=== PATIENT | female | born 1970 | race Caucasian/White ===

== ENCOUNTER → 2016-09-11 | Outpatient (CLI) | payer MEDICAID | LOC: OD 09:45 | PROVIDERS: ATTEND Family Medicine | DX: M25.562 Pain in left knee (principal) ==

== ENCOUNTER 2016-10-09 22:20 | Inpatient (IN) | payer MEDICAID ==
[2016-10-10] MEDS ORDERED: LIDOCAINE 1%/EPINEPHRINE INJ 20 ML VIAL INJ ONE (00:42)
--- NOTE | 2016-10-10 01:25 | ER Document Report ---
ED General - General Chief Complaint: Knee Pain Stated Complaint: KNEE PAIN AND SWELLING AND FEVER Notes: Patient is a 45-year-old female presents for complaint of having difficulty walking on her right leg. Patient says she first noticed some pain in her leg approximately week ago. She says this was not completely abnormal for her. She started nose some redness and felt unwell. She went to Dr. Rivera this morning. Dr. Rivera evaluated her and obtained blood work. She says he wanted hold off and buttocks until laboratory results came back. She says that the day pain is worse. She says her knee is stiff and she cannot extend it. She says she is unable to bear weight and has been using crutches and/or a walker. She spiked a fever tonight and therefore came to the ER. No new trauma or injuries. No other complaints at this time. TRAVEL OUTSIDE OF THE [place] IN LAST 30 DAYS: No - Related Data Allergies/Adverse Reactions: codeine [Codeine] Allergy (Intermediate, Verified 10/09/16 23:42) itching, dysphagia oxycodone Allergy (Verified 10/09/16 23:42) urticaria, hives prochlorperazine edisylate [From Compazine] Adverse Reaction (Intermediate, Verified 10/09/16 23:42) tardive dyskinesia Past Medical History - Social History Smoking Status: Unknown if Ever Smoked Frequency of alcohol use: None Drug Abuse: None Family History: CAD - Past Medical History Cardiac Medical History: Reports: Hx Heart Murmur - denies SBE prophylaxis Denies: Hx Atrial Fibrillation, Hx Congestive Heart Failure, Hx Heart Attack , Hx Hypercholesterolemia, Hx Hypertension Pulmonary Medical History: Reports: Hx Bronchitis Denies: Hx Asthma, Hx COPD, Hx Pneumonia, Hx Tuberculosis Neurological Medical History: Reports: Hx Migraine. Denies: Hx Seizures Renal/ Medical History: Denies: Hx End Stage Renal Disease, Hx Kidney Stones, Hx Peritoneal Dialysis Malignancy Medical History: Denies: Hx Leukemia GI Medical History: Reports: Hx Gastroesophageal Reflux Disease - meds x 6 months. Denies: Hx Hiatal Hernia, Hx Ulcer Musculoskeltal Medical History: Reports Hx Arthritis Psychiatric Medical History: Reports: Hx Bipolar Disorder, Hx Depression - meds x 21 years Denies: Hx Schizophrenia Traumatic Medical History: Reports: Hx Fractures - LT wrist, cast application only, 11 years ago Infectious Medical History: Denies: Hx HIV Past Surgical History: Reports: Hx Hysterectomy, Hx Orthopedic Surgery - Left total knee arthroplasty on 01/22/2015.. Denies: Hx Appendectomy, Hx Bowel Surgery, Hx Section, Hx Cholecystectomy, Hx Mastectomy, Hx Tonsillectomy, Hx Tubal Ligation - Immunizations Hx Diphtheria, Pertussis, Tetanus Vaccination: No Review of Systems - Review of Systems Notes: My Normal Review Basic REVIEW OF SYSTEMS: CONSTITUTIONAL : Fever. RESPIRATORY: Denies cough, cold, or chest congestion. Denies shortness of breath, difficulty breathing, or wheezing. GASTROINTESTINAL: Denies abdominal pain. Denies nausea, vomiting, or diarrhea. Denies constipation. Last BM: MUSCULOSKELETAL: Right knee pain and redness. SKIN: Denies rash or skin lesions.. NEUROLOGICAL: Denies altered mental status or loss of consciousness. Denies headache. Denies weakness or paralysis or loss of use of either side. Denies problems with gait or speech. Denies sensory or motor loss. ALL OTHER SYSTEMS REVIEWED AND NEGATIVE. Physical Exam - Notes Notes: General Appearance: Well nourished, alert, cooperative, no acute distress, moderate to severe obvious discomfort. Vitals: reviewed, See vital signs table. Head: no swelling or tenderness to the head Eyes: PERRL, EOMI, Conjuctiva clear Mouth: No decreasd moisture Lungs: No wheezing, No rales, No rhonci, No accessory muscle use, good air exchange bilaterally. Heart: Normal rate, Regular rythm, No murmur, no rub Extremities: strength 5/5 in all extremities, good pulses in all extremities, Patient is keeping the right knee in a flexed position. Any attempt to extend the knee meets significant resistance and patient has severe patel in doing so. Patient has erythema areound the surgical scar that then extends inferiorly over the right carson., no edema. Skin: warm, dry, appropriate color, no rash Neuro: speech clear, oriented x 3, normal affect, responds appropriately to questions. - Respiratory Respiratory status: No respiratory distress Chest status: Nontender Breath sounds: Normal Chest palpation: Normal Course - Re-evaluation Re-evalutation: 10/10/16 01:24 I did call and speak with Dr. Rivera, patient's orthopedic surgeon, informed the patient was here and my concerns that she could eventually have the knee infection based on the fact that the air in the surgical scar is very red and inflamed and also thing that the patient is unable to extend her knee and her knee is very stiff. Also she has fevers and the ESR and CRP that Dr. Rivera ordered earlier are positive. Dr. Rivera requests that he not start antibiotics but that I tried to obtain fluid for the need to send for analysis. I did just try to obtain fluid and was not unable to obtain any fluid. I will call Dr. Rivera back. 10/10/16 01:[address] Rivera again. I informed him I was unable to get fluid off the knee. He requests I still withhold antibiotics as he wants to evaluate the knee and potentially obtain fluid himself before starting antibiotics. He requests I admit the patient to his service and he will come in and evaluate the patient and determine exactly what antibiotics to give her after he evaluates the knee. - Transfer of Care Notes: 10/10/16 01:41 Patient will be admitted to Dr. Rivera service as he requests. I did explain the plan with the patient and she is agreeable to it. Patient be given some pain medicine the meantime. She'll be kept nothing by mouth. The patient appears to have what is possibly infected knee being that she has a locked knee that she cannot bear weight on and is very stiff with erythema around the previous surgical scar. She does have some redness that spreads inferiorly over the carson. It appears consistent with a cellulitis that has extended from the infection itself. Dictation of this chart was performed using voice recognition software; therefore, there may be some unintended grammatical errors. Discharge - Discharge Clinical Impression: Knee pain Qualifiers: Laterality: right Chronicity: acute Qualified Code(s): M25.561 - Pain in right knee Fever Qualifiers: Fever type: unspecified Qualified Code(s): R50.9 - Fever, unspecified Condition: Stable Disposition: ADMITTED INPATIENT Admitting Provider: samson Unit Admitted: Surgical Floor
[2016-10-10] MEDS ORDERED: MORPHINE SULFATE 10 MG/ML INJ IV ONE ×2 (01:38→03:46)
[2016-10-10 02:18] LABS: HEMATOCRIT 30.3 % (36.0-47.0); HEMOGLOBIN 9.7 g/dL (12.0-15.5); HGB HCT DIFFERENCE -1.2; MEAN CORPUSCULAR HEMOGLOBIN 21.9 pg (27.0-33.4); MEAN CORPUSCULAR HGB CONC 31.9 g/dL (32.0-36.0); MEAN CORPUSCULAR VOLUME 69 fl (80-97); RED BLOOD COUNT 4.41 10^6/uL (3.72-5.28); RED CELL DISTRIBUTION WIDTH 17.8 % (11.5-14.0); WHITE BLOOD COUNT 15.6 10^3/uL (4.0-10.5)
[2016-10-10 02:30] LABS: ANION GAP 14 (5-19); BLOOD UREA NITROGEN 20 mg/dL (7-20); CALCIUM 9.3 mg/dL (8.4-10.2); CARBON DIOXIDE 24 mmol/L (22-30); CHLORIDE 101 mmol/L (98-107); CREATININE RESULT 0.84 mg/dL (0.52-1.25); GLUCOSE 143 mg/dL (75-110)
[2016-10-10 02:36] LABS: BASOPHILS % (MANUAL) 0 % (0-2); EOSINOPHILS % (MANUAL) 0 % (0-6); LYMPHOCYTES % (MANUAL) 5 % (13-45); TOTAL CELLS COUNTED 100
[2016-10-10 02:37] LABS: ANISOCYTOSIS 1+; TOXIC GRANULATION 1+
[2016-10-10 02:58] LABS: C-REACTIVE PROTEIN 182.6 mg/L (<10.0)
[2016-10-10 03:03] LABS: ERYTHROCYTE SEDIMENTATION RATE 79 mm/hr (0-20)
[2016-10-10] MEDS ORDERED: ACETAMINOPHEN 325 MG TABLET PO PRN ×2 (04:36→12:48)
[2016-10-10] MEDS: MORPHINE SULFATE 10 MG/ML INJ IV PRN ×3 (06:06→21:06)
--- NOTE | 2016-10-10 06:57 | PDOC H&P ---
History of Present Illness Admission Date/PCP: 10/10/16 04:52 ERICKA WILSON MD History of Present Illness: GIA ANAYA is a 45 year old female who is status post right knee arthroplasty in November 2015. The patient did well until the last day or so. She presented to my office yesterday with complaints of knee pain and fever. My clinical suspicion for a periprosthetic infection was low but I did order labs which have come back with elevated sedimentation rate and C-reactive protein. In the interim the patient continued to have fevers and states that her knee locked up. She presented to the emergency room where workup ensued. An attempted aspiration was performed which was dry. The patient was then admitted to the orthopedic service for further evaluation. Past Medical History Cardiac Medical History: Reports: Heart Murmur - denies SBE prophylaxis Denies: Atrial Fibrillation, Congestive Heart Failure, Myocardial Infarction , Hyperlipidema, Hypertension Pulmonary Medical History: Reports: Bronchitis Denies: Asthma, Chronic Obstructive Pulmonary Disease (COPD), Pneumonia, Tuberculosis Neurological Medical History: Reports: Migraine Denies: Seizures Renal/ Medical History: Denies: End Stage Renal Disease Malignancy Medical History: Denies: Leukemia GI Medical History: Reports: Gastroesophageal Reflux Disease - meds x 6 months Denies: Hiatal Hernia Musculoskeltal Medical History: Reports: Arthritis Psychiatric Medical History: Reports: Bipolar Disorder, Depression - meds x 21 years Hematology: Reports: Anemia - yrs ago Denies: Hemophilia, Sickle Cell Disease Infectious Medical History: Denies: HIV Past Surgical History Past Surgical History: Reports: Hysterectomy, Orthopedic Surgery - Left total knee arthroplasty 01/22/2015. Right knee arthroplasty November 2015 Denies: Amputation, Appendectomy, Section, Cholecystectomy, Mastectomy, Tonsillectomy, Tubal Ligation Social History Information Source: Patient, DrRizwana Collado, [facility] Records Smoking Status: Unknown if Ever Smoked Frequency of Alcohol Use: None Hx Recreational Drug Use: No Hx Prescription Drug Abuse: No - Advance Directive Resuscitation Status: Full Code Family History Family History: CAD Parental Family History Reviewed: No Children Family History Reviewed: No Sibling(s) Family History Reviewed.: No Medication/Allergy Home Medications: Sertraline HCl 50 mg PO QHS 06/23/14 Sertraline HCl [Zoloft] 200 mg PO DAILY 01/10/15 Albuterol Sulfate [Proair HFA] 2 puff IH ASDIR PRN 11/19/15 Dexlansoprazole [Dexilant 60 mg Capsule] 1 tab PO DAILY 11/19/15 Diclofenac Potassium [Cambia] 50 mg PO ASDIR PRN 11/19/15 Divalproex Sodium [Divalproex Sodium ER] 2 tab PO QHS 11/19/15 Naratriptan HCl [Amerge] 1 tab PO ASDIR PRN 11/19/15 Quetiapine Fumarate 1 tab PO QHS 11/19/15 Verapamil HCl [Verapamil ER] 1 tab PO QHS 11/19/15 Cephalexin Monohydrate [Keflex 500 mg Capsule] 500 mg PO QID #28 capsule Cetirizine HCl [Zyrtec 10 mg Tablet] 1 tab PO DAILY #30 tablet 12/03/15 Hydrocodone/Acetaminophen [[place] 5-325 mg Tablet] 1 - 2 tab PO ASDIR #15 tablet 12/03/15 Ranitidine HCl [Zantac 150 mg Tablet] 150 mg PO BID #30 tablet 12/03/15 Allergies/Adverse Reactions: codeine [Codeine] Allergy (Intermediate, Verified 10/09/16 23:42) itching, dysphagia oxycodone Allergy (Verified 10/09/16 23:42) urticaria, hives prochlorperazine edisylate [From Compazine] Adverse Reaction (Intermediate, Verified 10/09/16 23:42) tardive dyskinesia Review of Systems All systems: as per H Physical Exam Vital Signs: Temp Pulse Resp BP Pulse Ox 37.5 C 93 17 114/46 L 100 10/10/16 04:33 10/10/16 04:33 10/10/16 04:33 10/10/16 04:33 10/10/16 04:33 Intake & Output 10/08/16 10/09/16 10/10/16 06:59 06:59 06:59 Output Total 300 Balance -300 Physical Exam: The patient's an overweight middle-aged white female lying in a hospital bed. Mild to moderate discomfort. She is diaphoretic. Head exam: PRESENT: normocephalic Eye exam: PRESENT: EOMI Respiratory exam: PRESENT: unlabored Cardiovascular exam: PRESENT: RRR Pulses: PRESENT: +1 pedal pulses bilateral Vascular exam: PRESENT: normal capillary refill GI/Abdominal exam: PRESENT: soft Rectal exam: PRESENT: deferred Extremities exam: PRESENT: other - Right lower extremity is held flexed. Passive range of motion is painful. There is some erythema over the anterior proximal aspect of the incision and extends down to the carson. Distal neurovascular examinations intact. Neurological exam: PRESENT: alert, awake, oriented to person, oriented to place , oriented to time, oriented to situation. ABSENT: motor sensory deficit Psychiatric exam: PRESENT: appropriate affect, normal mood. ABSENT: homicidal ideation, suicidal ideation Skin exam: PRESENT: dry, intact, warm. ABSENT: cyanosis, rash Results Status: Imported from PACS Assessment & Plan - Diagnosis (1) Infection of prosthetic right knee joint Is this a current diagnosis for this admission?: YesPlan: 45-year-old white female known 9 months status post right knee arthroplasty. Aspiration this morning reveals approximately 10 mL of a highly purulent fluid which is sent for culture and sensitivity as well as cell count and differential. Presents with a periprosthetic infection. There is no clear source of bacteremia. Plan will be for surgical debridement polyethylene spacer exchange and 6 weeks of IV antibiotics. - Time Time Spent: 50 to 70 Minutes Critical Time spent with patient: 15-24 minutes Anticipated discharge: Home with Homehealth Within: Other
--- NOTE | 2016-10-10 06:59 | Operative Report ---
Operative Report DATE OF SURGERY: 10/10/16 PREOPERATIVE DIAGNOSIS: Right knee periprosthetic infection OPERATION: Arthrocentesis right knee SURGEON: iMguel ANESTHESIA: Other TISSUE REMOVED OR ALTERED: 10 mL of purulent aspirate is sent for culture and sensitivity 2 and cell count and differential PROCEDURE: With the patient supine in the hospital bed. The anterior surface of the right knee is prepped and draped in a sterile fashion. An 18-gauge needles advanced through medial infrapatellar portal and used aspirate approximately 10 mL what appears be a highly purulent fluid. The needle was withdrawn. The portal closed with a sterile Band-Aid.
[2016-10-10] MEDS ORDERED: RINGERS SOLUTION,LACTATED 1,000 ML IV PRN ×2 (07:48→12:48)
[2016-10-10 07:58] LABS: FLUID TYPE SYNOVIAL
[2016-10-10 07:59] LABS: FLUID APPEARANCE TURBID
[2016-10-10 08:47] LABS: FLUID RBC SIDE 1 42; FLUID RBC SIDE 2 44
[2016-10-10 08:48] LABS: FLUID RBC DILUENT USED SALINE; FLUID RBC DILUTION FACTOR 51; TOTAL RBC SQUARES COUNTED FLD 225
--- NOTE | 2016-10-10 09:40 | EKG REPORT ---
SEVERITY:- OTHERWISE NORMAL ECG - SINUS TACHYCARDIA : Confirmed by: Lucio Escalante 10-Oct-2016 09:39:54
[2016-10-10] MEDS: VANCOMYCIN HCL 1,500 MG in DEXTROSE 5%-WATER 250 ML IV SCH (10:00)
[2016-10-10] MEDS ORDERED: BACITRACIN INJ 50,000 UNIT VIAL ONE (10:03)
[2016-10-10] MEDS ORDERED: POLYMYXIN B SULFATE INJ 500000 UNIT VIAL ONE (10:03)
[2016-10-10] MEDS ORDERED: THROMBIN (BOVINE) TOPICAL 20000 UNIT VIAL ONE (10:04)
[2016-10-10] MEDS ORDERED: THROMBIN (BOVINE) 5000 UNIT EPITAXIS KIT ONE (10:04)
[2016-10-10] MEDS ORDERED: BUPIVACAINE INJ/PF LIPOSOME/PF 266 MG/20 ML SDV ONE (10:08)
[2016-10-10] MEDS ORDERED: MIDAZOLAM 2 MG/2 ML INJ ONE (11:01)
[2016-10-10] MEDS ORDERED: FENTANYL CITRATE INJ/PF 250 MCG/5 ML AMPULE ONE (11:01)
[2016-10-10] MEDS ORDERED: ACETAMINOPHEN 100 ML IV ONE (11:02)
[2016-10-10] MEDS ORDERED: PROPOFOL INJ 200 MG/20 ML VIAL IV ONE (11:02)
[2016-10-10] MEDS ORDERED: MORPHINE SULFATE 10 MG/ML INJ ONE (11:02)
[2016-10-10] MEDS ORDERED: FENTANYL CITRATE INJ/PF 100 MCG/2 ML AMPUL IV PRN ×3 (11:18)
[2016-10-10] MEDS ORDERED: DIPHENHYDRAMINE HCL 50 MG/ML VIAL IV PRN ×2 (11:18→12:48)
[2016-10-10] MEDS ORDERED: PROMETHAZINE HCL INJ 25 MG/1 ML VIAL IV PRN ×2 (11:18)
[2016-10-10] MEDS ORDERED: OXYCODONE-ACETAMINOPHEN 5-325 MG TABLET PO PRN ×2 (11:18)
[2016-10-10] MEDS ORDERED: MEPERIDINE HCL/PF INJ 25 MG/1 ML DISP.SYRIN IV PRN (11:18)
[2016-10-10] MEDS ORDERED: MORPHINE SULFATE 10 MG/ML INJ IV PRN ×3 (11:18→12:48)
[2016-10-10] MEDS ORDERED: TRANEXAMIC ACID INJ/PF 1,000 MG/10 ML SDV IV ONE ×2 (12:31→15:00)
[2016-10-10] MEDS ORDERED: (PENDING PHARMACY ID) (Rizatriptan Benzoate [Rizatriptan] 10 MG) PO PRN (12:47)
[2016-10-10] MEDS ORDERED: MAG HYDROX/AL HYDROX/SIMETH SUSP 30 ML UDCUP PO PRN (12:48)
[2016-10-10] MEDS ORDERED: OXYCODONE HCL IR 5 MG TABLET PO PRN (12:48)
[2016-10-10] MEDS ORDERED: ZOLPIDEM TARTRATE 5 MG TABLET PO PRN (12:48)
--- NOTE | 2016-10-10 12:54 | Operative Report ---
Operative Report DATE OF SURGERY: 10/10/16 PREOPERATIVE DIAGNOSIS: Right knee periprosthetic infection OPERATION: IND right knee replacement of right tibial spacer SURGEON: Miguel ANESTHESIA: GA TISSUE REMOVED OR ALTERED: Cultures sent to microbiology ESTIMATED BLOOD LOSS: 100 PROCEDURE: With the patient supine operative table right lower extremity is prepped and draped in sterile fashion. The knee is elevated for exsanguination tourniquet inflated to 350 torr. A standard midline median parapatellar approach knee is taken in line with the previous surgical approach. Upon entering the capsule large amount of purulent material was countered, cultured, and then evacuated. The underlying tibial spacers removed. The wound is sabrina. Pulse lavage containing bacitracin 3 L. The synovium is then taken. This is debrided. The wounds again irrigated with pulse lavage for additional 3 L. At this point a 9 mm tibial spacer is impacted into a #3 Striker tray. The wound is irrigated. Tourniquet is deflated and hemostasis obtained with electrocautery. The wound is then closed in layers using interrupted PDS followed by atul. A sterile compressive dressing is applied and the patient's returned to recovery in satisfactory condition.
[2016-10-10] MEDS ORDERED: IBUPROFEN INJ 800 MG/8 ML VIAL IV ONE (13:45)
[2016-10-10] MEDS ORDERED: IBUPROFEN 800 MG in NORMAL SALINE 250 ML IV ONE (14:30)
[2016-10-10] MEDS: RIFAMPIN 300 MG CAPSULE PO SCH ×2 (15:00→17:15)
[2016-10-10] MEDS ORDERED: SUCCINYLCHOLINE CHLORIDE INJ 200 MG/10 ML VIAL ONE (15:49)
[2016-10-10] MEDS ORDERED: ONDANSETRON HCL INJ/PF 4 MG/2 ML SDV ONE (15:49)
[2016-10-10] MEDS ORDERED: LIDOCAINE 2% INJ-PF (20 MG/ML) 10 ML AMPUL ONE (15:49)
[2016-10-10] MEDS ORDERED: GLYCOPYRROLATE INJ 0.4 MG/2 ML VIAL ONE (15:49)
[2016-10-10] MEDS ORDERED: ROCURONIUM BROMIDE INJ 50 MG/5 ML VIAL IV ONE (15:49)
[2016-10-10] MEDS ORDERED: NEOSTIGMINE METHYLSULFATE 10 MG/10 ML VIAL ONE (15:49)
[2016-10-10] MEDS ORDERED: METOCLOPRAMIDE HCL INJ/PF 10 MG/2 ML SDV ONE (15:49)
[2016-10-10] MEDS ORDERED: CEFEPIME 2 GM/D5W RTU 50 ML IV SCH (16:15)
--- NOTE | 2016-10-10 16:27 | PDOC CONSULTATION ---
Consultation Consult Date: 10/10/16 Attending physician:: SORAYA DOUGLASS Consult reason:: rt knee periprosthetic infection History of Present Illness Admission Date/PCP: 10/10/16 12:48 ERICKA WILSON MD Patient complains of: pain right knee S/P surgery History of Present Illness: Patient is a 45 year old who was admitted by Dr. Douglass for right knee periprosthetic infection In November 2015 patient had right knee arthroplasty without any complications In August 2016 patient fell, injuring her left knee She does not recall having had any injury to the right knee no superficial lacerations or abrasions A week prior to this admission patient started having pain in the right knee with fever chills; Patient was unable to bear weight and ambulate. Patient was evaluated by Dr. Douglass who suspected a periprosthetic infection. She was scheduled for surgical debridement and polyethylene spacer exchange . Past Medical History Cardiac Medical History: Reports: Heart Murmur - denies SBE prophylaxis Denies: Atrial Fibrillation, Congestive Heart Failure, Myocardial Infarction , Hyperlipidema, Hypertension Pulmonary Medical History: Reports: Bronchitis Denies: Asthma, Chronic Obstructive Pulmonary Disease (COPD), Pneumonia, Tuberculosis Neurological Medical History: Reports: Migraine Denies: Seizures Renal/ Medical History: Denies: End Stage Renal Disease Malignancy Medical History: Denies: Leukemia GI Medical History: Reports: Gastroesophageal Reflux Disease - meds x 6 months Denies: Hiatal Hernia Musculoskeltal Medical History: Reports: Arthritis Psychiatric Medical History: Reports: Bipolar Disorder, Depression - meds x 21 years Hematology: Reports: Anemia - yrs ago Denies: Hemophilia, Sickle Cell Disease Infectious Medical History: Denies: HIV Past Surgical History Past Surgical History: Reports: Hysterectomy, Orthopedic Surgery - Left total knee arthroplasty 01/22/2015. Right knee arthroplasty November 2015 Denies: Amputation, Appendectomy, Section, Cholecystectomy, Mastectomy, Tonsillectomy, Tubal Ligation Social History Information Source: Patient Lives with: Family Smoking Status: Never Smoker Frequency of Alcohol Use: None Hx Recreational Drug Use: No Hx Prescription Drug Abuse: No - Advance Directive Resuscitation Status: Full Code Surrogate healthcare decision maker:: friend Adelaide Loaiza Family History Family History: Hypertension, Other - Dementia Parental Family History Reviewed: Yes Children Family History Reviewed: Yes Sibling(s) Family History Reviewed.: Yes Medication/Allergy Home Medications: Dexlansoprazole [Dexilant 60 mg Capsule] 60 mg PO DAILY 11/19/15 Ranitidine HCl [Zantac 150 mg Tablet] 150 mg PO BID #30 tablet 12/03/15 Quetiapine Fumarate [Seroquel 100 mg Tablet] 100 mg PO QHS 10/10/16 Rizatriptan Benzoate [Rizatriptan] 10 mg PO Q2HP PRN MDD 20 MG 10/10/16 Sertraline HCl [Zoloft 50 mg Tablet] 50 mg PO QHS 10/10/16 Sertraline HCl [Zoloft] 200 mg PO DAILY 10/10/16 Verapamil HCl [Verapamil ER] 240 mg PO BID 10/10/16 Allergies/Adverse Reactions: codeine [Codeine] Allergy (Intermediate, Verified 10/09/16 23:42) itching, dysphagia oxycodone Allergy (Verified 10/09/16 23:42) urticaria, hives prochlorperazine edisylate [From Compazine] Adverse Reaction (Intermediate, Verified 10/09/16 23:42) tardive dyskinesia Review of Systems Constitutional: PRESENT: chills, fever(s). ABSENT: headache(s), weight gain, weight loss Eyes: ABSENT: visual disturbances Ears: ABSENT: hearing changes Cardiovascular: ABSENT: chest pain, dyspnea on exertion, edema, orthropnea, palpitations Respiratory: ABSENT: cough, hemoptysis Gastrointestinal: ABSENT: abdominal pain, constipation, diarrhea, hematemesis, hematochezia, nausea, vomiting Genitourinary: ABSENT: dysuria, hematuria Musculoskeletal: PRESENT: other - Pain right knee Integumentary: ABSENT: rash, wounds Neurological: ABSENT: abnormal gait, abnormal speech, confusion, dizziness, focal weakness, syncope Psychiatric: ABSENT: anxiety, depression, homidical ideation, suicidal ideation Endocrine: ABSENT: cold intolerance, heat intolerance, polydipsia, polyuria Hematologic/Lymphatic: ABSENT: easy bleeding, easy bruising Physical Exam Vital Signs: Temp Pulse Resp BP Pulse Ox 99.8 F 102 H 22 H 122/54 L 95 10/10/16 14:05 10/10/16 14:05 10/10/16 14:05 10/10/16 14:05 10/10/16 14:05 Intake & Output 10/09/16 10/10/16 10/11/16 00:59 00:59 00:59 Intake Total 800 Output Total 100 Balance 700 General appearance: PRESENT: no acute distress, obese Head exam: PRESENT: atraumatic, normocephalic Eye exam: PRESENT: conjunctiva pink, EOMI, PERRLA. ABSENT: scleral icterus Ear exam: PRESENT: normal external ear exam Mouth exam: PRESENT: moist, tongue midline Neck exam: ABSENT: carotid bruit, JVD, lymphadenopathy, thyromegaly Respiratory exam: PRESENT: clear to auscultation chioma. ABSENT: rales, rhonchi, wheezes Cardiovascular exam: PRESENT: RRR. ABSENT: diastolic murmur, rubs, systolic murmur Pulses: PRESENT: normal dorsalis pedis pul Vascular exam: PRESENT: normal capillary refill GI/Abdominal exam: PRESENT: normal bowel sounds, soft. ABSENT: distended, guarding, mass, organolmegaly, rebound, tenderness Rectal exam: PRESENT: deferred Extremities exam: PRESENT: full ROM, other - Right lower extremity bandaged. ABSENT: calf tenderness, clubbing, pedal edema Neurological exam: PRESENT: alert, awake, oriented to person, oriented to place , oriented to time, oriented to situation, CN II-XII grossly intact. ABSENT: motor sensory deficit Psychiatric exam: PRESENT: appropriate affect, normal mood. ABSENT: homicidal ideation, suicidal ideation Skin exam: PRESENT: dry, intact, warm. ABSENT: cyanosis, rash Results Laboratory Results: Labs- All tests 24 hr 10/10/16 10/10/16 10/10/16 01:50 01:50 06:32 WBC 15.6 H RBC 4.41 Hgb 9.7 L Hct 30.3 L MCV 69 L MCH 21.9 L MCHC 31.9 L RDW 17.8 H Plt Count 234 Total Counted 100 Seg Neutrophils % Not Reportable Seg Neuts % (Manual) 89 H Lymphocytes % Not Reportable Lymphocytes % (Manual) 5 L Monocytes % Not Reportable Monocytes % (Manual) 6 Eosinophils % Not Reportable Eosinophils % (Manual) 0 Basophils % Not Reportable Basophils % (Manual) 0 Absolute Neutrophils Not Reportable Abs Neuts (Manual) 13.9 H Absolute Lymphocytes Not Reportable Abs Lymphs (Manual) 0.8 Absolute Monocytes Not Reportable Abs Monocytes (Manual) 0.9 Absolute Eosinophils Not Reportable Absolute Eos (Manual) 0.0 Absolute Basophils Not Reportable Abs Basophils (Manual) 0.0 Toxic Granulation 1+ Platelet Comment ADEQUATE Anisocytosis 1+ ESR 79 H Sodium 139.0 Potassium 4.0 Chloride 101 Carbon Dioxide 24 Anion Gap 14 BUN 20 Creatinine 0.84 Est GFR ( Amer) > 60 Est GFR (Non-Af Amer) > 60 Glucose 143 H Calcium 9.3 C-Reactive Protein 182.6 H Fluid Type SYNOVIAL Fluid Source KNEE Fluid Color YELLOW Fluid Appearance TURBID Fluid Viscosity MODERATELY VISCOUS Fluid WBC 960944 Fluid RBC 2436 Fluid Seg Neutrophils 95 Fluid Lymphocytes 1 Fluid Monocytes 4 10/10/16 12:13 Gram Stain - Preliminary Knee - Right 10/10/16 12:12 Gram Stain - Preliminary Knee - Right 10/10/16 06:32 Gram Stain - Preliminary Knee Fluid - Right Body Fluid Culture - Preliminary 10/10/16 06:32 Gram Stain - Preliminary Knee Fluid - Right Body Fluid Culture - Preliminary Impressions: Chest X-Ray 10/10/16 00:00 IMPRESSION: NO SIGNIFICANT RADIOGRAPHIC FINDING IN THE CHEST. Assessment & Plan - Diagnosis (2) Prosthetic joint infection Is this a current diagnosis for this admission?: YesPlan: Cultures are pending grams stable of the joint fluid shows gram-positive cocci We will continue vancomycin and will add cefepime for broader coverage until results of cultures are available (3) Sepsis Qualifiers: Sepsis type: sepsis due to unspecified organism Qualified Code(s): A41.9 - Sepsis, unspecified organism Is this a current diagnosis for this admission?: YesPlan: Patient is febrile tachycardic [place] [address] [place] will give her another bolus of fluid thousand milliliters saline We will continue ringers lactate as ordered Patient is hemodynamically stable - Time Time Spent: 50 to 70 Minutes
[2016-10-10] MEDS ORDERED: NORMAL SALINE 1000 ML 2,000 ML IV ONE (17:00)
[2016-10-10] MEDS ORDERED: NORMAL SALINE 1000 ML 1,000 ML IV ONE (17:00)
[2016-10-10] MEDS: ONDANSETRON HCL INJ/PF 4 MG/2 ML SDV IV PRN (17:08)
[2016-10-10] MEDS: FAMOTIDINE 20 MG TABLET PO SCH (17:13)
[2016-10-10] MEDS: CEFEPIME HCL 2 GM in DEXTROSE 5%-WATER 50 ML IV SCH (17:14)
[2016-10-10] MEDS: SENNOSIDES/DOCUSATE 8.6-50 MG 1 EACH TABLET PO SCH (17:19)
[2016-10-10] MEDS ORDERED: (PENDING PHARMACY ID) (Ranitidine Hcl [Zantac 150 Mg Tablet] 150 MG) PO SCH (18:00)
[2016-10-10] MEDS: IBUPROFEN 800 MG in NORMAL SALINE 250 ML IV SCH (21:54)
[2016-10-10] MEDS: QUETIAPINE FUMARATE 100 MG TABLET PO SCH (21:55)
[2016-10-10] MEDS: RIVAROXABAN 10 MG TABLET PO SCH (21:55)
[2016-10-10] MEDS: SERTRALINE HCL 50 MG TABLET PO SCH (21:55)
[2016-10-10] MEDS: VERAPAMIL HCL 240 MG TABLET.SA PO SCH (21:56)
[2016-10-10] MEDS ORDERED: OXYCODONE HCL SR 10 MG TABLET PO SCH (22:00)
[2016-10-11] MEDS ORDERED: VANCOMYCIN HCL 1,000 MG in DEXTROSE 5%-WATER 250 ML IV ONE (01:00)
[2016-10-11] MEDS: VANCOMYCIN HCL 1,500 MG in DEXTROSE 5%-WATER 250 ML IV SCH ×2 (04:52→10:09)
[2016-10-11] MEDS: MORPHINE SULFATE 10 MG/ML INJ IV PRN (05:03)
[2016-10-11] MEDS: LANSOPRAZOLE 30 MG TAB.RAP.DR PO SCH (05:17)
[2016-10-11] MEDS: IBUPROFEN 800 MG in NORMAL SALINE 250 ML IV SCH ×3 (05:17→23:42)
[2016-10-11] MEDS: CEFEPIME HCL 2 GM in DEXTROSE 5%-WATER 50 ML IV SCH (05:17)
[2016-10-11 06:04] LABS: HEMATOCRIT 23.9 % (36.0-47.0); HGB HCT DIFFERENCE -0.5; MEAN CORPUSCULAR HEMOGLOBIN 22.3 pg (27.0-33.4); MEAN CORPUSCULAR HGB CONC 32.6 g/dL (32.0-36.0); MEAN CORPUSCULAR VOLUME 69 fl (80-97); RED BLOOD COUNT 3.48 10^6/uL (3.72-5.28); RED CELL DISTRIBUTION WIDTH 18.2 % (11.5-14.0); WHITE BLOOD COUNT 8.8 10^3/uL (4.0-10.5)
[2016-10-11 06:24] LABS: ANION GAP 12 (5-19); BLOOD UREA NITROGEN 20 mg/dL (7-20); CALCIUM 8.1 mg/dL (8.4-10.2); CARBON DIOXIDE 24 mmol/L (22-30); CHLORIDE 102 mmol/L (98-107); CREATININE RESULT 0.81 mg/dL (0.52-1.25); GLUCOSE 96 mg/dL (75-110); SODIUM 137.8 mmol/L (137-145)
[2016-10-11 06:25] LABS: HEMOGLOBIN 7.8 g/dL (12.0-15.5)
[2016-10-11 06:35] LABS: POTASSIUM 3.6 mmol/L (3.6-5.0)
[2016-10-11] MEDS: SENNOSIDES/DOCUSATE 8.6-50 MG 1 EACH TABLET PO SCH ×2 (09:28→18:40)
[2016-10-11] MEDS: RIFAMPIN 300 MG CAPSULE PO SCH (09:28)
[2016-10-11] MEDS: FAMOTIDINE 20 MG TABLET PO SCH ×2 (09:28→18:40)
[2016-10-11] MEDS: SERTRALINE HCL 50 MG TABLET PO SCH ×2 (09:30→21:41)
[2016-10-11] MEDS: PRENATAL VITAMIN W-O CA NO5/FE FUMARATE/FA CAPSULE PO SCH (09:30)
[2016-10-11] MEDS: HYDROCODONE/ACETAMINOPHEN 5-325 MG TABLET PO PRN ×2 (09:32→20:11)
[2016-10-11] MEDS: VERAPAMIL HCL 240 MG TABLET.SA PO SCH (09:42)
[2016-10-11] MEDS ORDERED: (PENDING PHARMACY ID) (Sertraline Hcl [Zoloft] 200 MG) PO SCH (10:00)
[2016-10-11] MEDS ORDERED: VERAPAMIL HCL 240 MG TABLET.SA PO SCH (10:09)
[2016-10-11] MEDS ORDERED: RINGERS SOLUTION,LACTATED 1,000 ML IV PRN (10:09)
[2016-10-11] MEDS ORDERED: SUMATRIPTAN SUCCINATE 50 MG TABLET PO SCH (10:15)
[2016-10-11] MEDS ORDERED: DOCUSATE SODIUM 100 MG CAPSULE PO ONE (11:00)
[2016-10-11] MEDS ORDERED: POLYETHYLENE GLYCOL 3350 POWDER 17 GM/1 PACKET PO ONE (11:00)
[2016-10-11] MEDS: SUMATRIPTAN SUCCINATE 50 MG TABLET PO PRN ×2 (11:57→13:46)
[2016-10-11] MEDS: GABAPENTIN 300 MG CAPSULE PO SCH ×2 (13:46→21:41)
[2016-10-11] MEDS: MORPHINE SULFATE 10 MG/ML INJ IM PRN (13:52)
--- NOTE | 2016-10-11 14:01 | PDOC PROGRESS REPORT ---
Subjective Progress Note for:: 10/11/16 Subjective:: severe headache severe pains right leg "like cramps " on and off culture results : group A beta Strep Physical Exam Vital Signs: Temp Pulse Resp BP Pulse Ox 99.1 F 91 19 95/44 L 99 10/11/16 12:00 10/11/16 12:00 10/11/16 12:00 10/11/16 12:00 10/11/16 12:00 Intake & Output 10/10/16 10/11/16 10/12/16 00:59 00:59 00:59 Intake Total 1550 420 Output Total 700 Balance 850 420 General appearance: PRESENT: mild distress, obese Head exam: PRESENT: atraumatic, normocephalic Eye exam: PRESENT: conjunctiva pink, EOMI, PERRLA. ABSENT: scleral icterus Neck exam: ABSENT: carotid bruit, JVD, lymphadenopathy, thyromegaly Respiratory exam: PRESENT: clear to auscultation chioma. ABSENT: rales, rhonchi, wheezes Pulses: PRESENT: normal dorsalis pedis pul Extremities exam: PRESENT: other - right lower extremity bandaged Neurological exam: PRESENT: alert, awake, oriented to person, oriented to place , oriented to time, oriented to situation, CN II-XII grossly intact. ABSENT: motor sensory deficit Psychiatric exam: PRESENT: appropriate affect, normal mood. ABSENT: homicidal ideation, suicidal ideation Results Laboratory Results: 10/11/16 05:28 10/11/16 05:28 10/10/16 10/11/16 10/11/16 17:45 05:28 05:28 WBC 8.8 RBC 3.48 L Hgb 7.8 L Hct 23.9 L MCV 69 L MCH 22.3 L MCHC 32.6 RDW 18.2 H Plt Count 198 Sodium 137.8 Potassium 3.6 Chloride 102 Carbon Dioxide 24 Anion Gap 12 BUN 20 Creatinine 0.81 Est GFR ( Amer) > 60 Est GFR (Non-Af Amer) > 60 Glucose 96 Lactic Acid 0.9 Calcium 8.1 L Blood Type Antibody Screen 10/11/16 08:27 WBC RBC Hgb Hct MCV MCH MCHC RDW Plt Count Sodium Potassium Chloride Carbon Dioxide Anion Gap BUN Creatinine Est GFR ( Amer) Est GFR (Non-Af Amer) Glucose Lactic Acid Calcium Blood Type O POSITIVE Antibody Screen NEGATIVE Impressions: Chest X-Ray 10/10/16 00:00 IMPRESSION: NO SIGNIFICANT RADIOGRAPHIC FINDING IN THE CHEST. Assessment & Plan - Diagnosis (2) Prosthetic joint infection Is this a current diagnosis for this admission?: YesPlan: results culture : 10/10/16 12:13 Gram Stain - Preliminary Knee - Right Wound Culture - Preliminary Group A Beta Streptococcus 10/10/16 12:12 Gram Stain - Preliminary Knee - Right Wound Culture - Preliminary Group A Beta Streptococcus 10/10/16 06:32 Gram Stain - Preliminary Knee Fluid - Right Body Fluid Culture - Preliminary Group A Beta Streptococcus 10/10/16 06:32 Gram Stain - Preliminary Knee Fluid - Right Body Fluid Culture - Preliminary Group A Beta Streptococcus discussed case with Dr Erika JAEGER fellow [facility] initiate treatment with Penicillin G 24 million units Penicillin G/ 24 hours continuous for 6 weeks (3) Sepsis Qualifiers: Sepsis type: sepsis due to unspecified organism Qualified Code(s): A41.9 - Sepsis, unspecified organism Is this a current diagnosis for this admission?: YesPlan: resolving (4) Migraine headache Qualifiers: Migraine type: unspecified Status migrainosus presence: without status migrainosus Intractability: not intractable Qualified Code(s): G43.909 - Migraine, unspecified, not intractable, without status migrainosus Is this a current diagnosis for this admission?: YesPlan: imitrex po - Time Time Spent with patient: 25-34 minutes
[2016-10-11 16:34] LABS: FOLATE > 20.00 ng/mL (>2.76)
[2016-10-11] MEDS: DOCUSATE SODIUM 100 MG CAPSULE PO SCH (18:40)
[2016-10-11] MEDS: FERROUS SULFATE 325 MG TABLET PO SCH (18:40)
[2016-10-11] MEDS: RIVAROXABAN 10 MG TABLET PO SCH (21:41)
[2016-10-11] MEDS: QUETIAPINE FUMARATE 100 MG TABLET PO SCH (21:41)
[2016-10-11] MEDS ORDERED: VERAPAMIL HCL 120 MG TABLET.SA PO SCH (22:00)
[2016-10-11] MEDS: NORMAL SALINE IV SCH (23:31)
[2016-10-11] MEDS: PENICILLIN POTASSIUM IV SCH (23:31)
[2016-10-12] MEDS: MORPHINE SULFATE 10 MG/ML INJ IM PRN (00:22)
[2016-10-12 04:44] LABS: HEMATOCRIT 27.1 % (36.0-47.0); HGB HCT DIFFERENCE -0.1; MEAN CORPUSCULAR HEMOGLOBIN 23.4 pg (27.0-33.4); MEAN CORPUSCULAR VOLUME 71 fl (80-97); RED BLOOD COUNT 3.83 10^6/uL (3.72-5.28)
[2016-10-12] MEDS: IBUPROFEN 800 MG in NORMAL SALINE 250 ML IV SCH ×2 (05:21→13:55)
[2016-10-12] MEDS: LANSOPRAZOLE 30 MG TAB.RAP.DR PO SCH (05:21)
[2016-10-12] MEDS: GABAPENTIN 300 MG CAPSULE PO SCH ×3 (05:21→21:50)
[2016-10-12] MEDS: HYDROCODONE/ACETAMINOPHEN 5-325 MG TABLET PO PRN ×2 (08:03→17:39)
[2016-10-12] MEDS: SUMATRIPTAN SUCCINATE 50 MG TABLET PO PRN ×2 (08:03→11:34)
[2016-10-12] MEDS ORDERED: BISACODYL 10 MG SUPP.RECT PR PRN (09:32)
--- NOTE | 2016-10-12 09:50 | PDOC PROGRESS REPORT ---
Subjective Progress Note for:: 10/12/16 Subjective:: Patient is still complaining of headache otherwise she feels better She states her throat is still painful and she recalls having had a sore throat about a week ago with fever chills She is no chest pain no shortness of breath And she is afebrile Physical Exam Vital Signs: Temp Pulse Resp BP Pulse Ox 98.3 F 80 20 120/50 L 95 10/11/16 22:40 10/12/16 07:11 10/12/16 07:11 10/12/16 07:11 10/12/16 07:11 Intake & Output 10/11/16 10/12/16 10/13/16 00:59 00:59 00:59 Intake Total 1550 1920 400 Output Total 700 1300 Balance 850 1920 -900 Weight 127.6 kg General appearance: PRESENT: no acute distress, obese Head exam: PRESENT: atraumatic, normocephalic Eye exam: PRESENT: conjunctiva pink, EOMI, PERRLA. ABSENT: scleral icterus Ear exam: PRESENT: normal external ear exam Mouth exam: PRESENT: moist, tongue midline Throat exam: PRESENT: post pharyngeal erythema Neck exam: ABSENT: carotid bruit, JVD, lymphadenopathy, thyromegaly Respiratory exam: PRESENT: clear to auscultation chioma. ABSENT: rales, rhonchi, wheezes Cardiovascular exam: PRESENT: RRR. ABSENT: diastolic murmur, rubs, systolic murmur Pulses: PRESENT: normal dorsalis pedis pul Vascular exam: PRESENT: normal capillary refill GI/Abdominal exam: PRESENT: normal bowel sounds, soft. ABSENT: distended, guarding, mass, organolmegaly, rebound, tenderness Rectal exam: PRESENT: deferred Extremities exam: PRESENT: full ROM. ABSENT: calf tenderness, clubbing, pedal edema Musculoskeletal exam: PRESENT: other - Decreased range of motion of the right knee Neurological exam: PRESENT: alert, awake, oriented to person, oriented to place , oriented to time, oriented to situation, CN II-XII grossly intact. ABSENT: motor sensory deficit Psychiatric exam: PRESENT: appropriate affect, normal mood. ABSENT: homicidal ideation, suicidal ideation Skin exam: PRESENT: dry, intact, warm. ABSENT: cyanosis, rash Results Laboratory Results: 10/12/16 03:54 10/11/16 05:28 10/11/16 10/11/16 10/12/16 05:28 08:27 03:54 WBC 8.0 RBC 3.83 Hgb 9.0 L Hct 27.1 L MCV 71 L MCH 23.4 L MCHC 33.0 RDW 19.0 H Plt Count 191 Iron < 10.1 L TIBC 345 % Saturation UNABLE TO CALCULATE Ferritin 95.00 Vitamin B12 574.0 Folate > 20.00 Blood Type O POSITIVE Antibody Screen NEGATIVE Impressions: Chest X-Ray 10/10/16 00:00 IMPRESSION: NO SIGNIFICANT RADIOGRAPHIC FINDING IN THE CHEST. Assessment & Plan - Diagnosis (2) Prosthetic joint infection Is this a current diagnosis for this admission?: YesPlan: 10/10/16 12:13 Gram Stain - Preliminary Knee - Right Wound Culture - Preliminary Group A Beta Streptococcus 10/10/16 12:12 Gram Stain - Preliminary Knee - Right Wound Culture - Preliminary Group A Beta Streptococcus 10/10/16 06:32 Gram Stain - Final Knee Fluid - Right Body Fluid Culture - Preliminary Group A Beta Streptococcus 10/10/16 06:32 Gram Stain - Final Knee Fluid - Right Body Fluid Culture - Preliminary Group A Beta Streptococcus Patient may have had strep pharyngitis and strep bacteremia We will get a strep culture from the throat ASO titer also be drawn (3) Sepsis Qualifiers: Sepsis type: sepsis due to unspecified organism Qualified Code(s): A41.9 - Sepsis, unspecified organism Is this a current diagnosis for this admission?: Yes (4) Migraine headache Qualifiers: Migraine type: unspecified Status migrainosus presence: without status migrainosus Intractability: not intractable Qualified Code(s): G43.909 - Migraine, unspecified, not intractable, without status migrainosus Is this a current diagnosis for this admission?: YesPlan: Continue Imitrex - Time Time Spent with patient: Patient is considering short-term rehabilitation ; we will discuss case with regional planner in a.m. Patient needs 24-hour infusion of penicillin at discharge Time Spent with patient: 25-34 minutes
[2016-10-12] MEDS: FERROUS SULFATE 325 MG TABLET PO SCH ×2 (10:51→17:39)
[2016-10-12] MEDS: DOCUSATE SODIUM 100 MG CAPSULE PO SCH ×2 (10:52→17:39)
[2016-10-12] MEDS: FAMOTIDINE 20 MG TABLET PO SCH ×2 (10:52→17:39)
[2016-10-12] MEDS: PRENATAL VITAMIN W-O CA NO5/FE FUMARATE/FA CAPSULE PO SCH (10:52)
[2016-10-12] MEDS: SERTRALINE HCL 50 MG TABLET PO SCH ×2 (10:52→21:49)
[2016-10-12] MEDS: SENNOSIDES/DOCUSATE 8.6-50 MG 1 EACH TABLET PO SCH ×2 (10:52→17:39)
[2016-10-12] MEDS: POLYETHYLENE GLYCOL 3350 POWDER 17 GM/1 PACKET PO SCH (10:53)
[2016-10-12] MEDS: PENICILLIN POTASSIUM IV SCH (17:40)
[2016-10-12] MEDS: NORMAL SALINE IV SCH (17:40)
--- NOTE | 2016-10-12 17:55 | PDOC PROGRESS REPORT ---
Subjective Progress Note for:: 10/12/16 Subjective:: Patient resting in bed. Pain well-controlled. No issues overnight. Physical Exam Vital Signs: Temp Pulse Resp BP Pulse Ox 36.3 C 91 16 128/78 H 99 10/12/16 16:00 10/12/16 16:00 10/12/16 16:00 10/12/16 16:00 10/12/16 16:00 Intake & Output 10/11/16 10/12/16 10/13/16 06:59 06:59 06:59 Intake Total 1970 1900 Output Total 700 1300 Balance 1270 600 Weight 127.6 kg General appearance: PRESENT: no acute distress Results Laboratory Results: 10/12/16 03:54 10/11/16 05:28 10/11/16 10/12/16 08:27 03:54 WBC 8.0 RBC 3.83 Hgb 9.0 L Hct 27.1 L MCV 71 L MCH 23.4 L MCHC 33.0 RDW 19.0 H Plt Count 191 Blood Type O POSITIVE Antibody Screen NEGATIVE Impressions: Chest X-Ray 10/10/16 00:00 IMPRESSION: NO SIGNIFICANT RADIOGRAPHIC FINDING IN THE CHEST. Assessment & Plan - Diagnosis (1) Infection of prosthetic right knee joint Is this a current diagnosis for this admission?: Yes - Plan Summary Plan Summary: 45-year-old female who is status post I&D and poly-exchange of the right total knee due to postoperative infection. Just came back positive for streptococcus. Switched to appropriate antibiotics by Dr. Rodriguez Patient continue weightbearing as tolerated. Probably will have dressing change tomorrow. Continue pain control and DVT prophylaxis.
[2016-10-12] MEDS: QUETIAPINE FUMARATE 100 MG TABLET PO SCH (21:50)
[2016-10-12] MEDS: RIVAROXABAN 10 MG TABLET PO SCH (21:50)
[2016-10-13] MEDS: ONDANSETRON 4 MG TAB.RAPDIS PO PRN (02:20)
[2016-10-13] MEDS: LANSOPRAZOLE 30 MG TAB.RAP.DR PO SCH (04:10)
[2016-10-13] MEDS: GABAPENTIN 300 MG CAPSULE PO SCH ×3 (04:10→22:09)
[2016-10-13 05:02] LABS: HEMATOCRIT 25.5 % (36.0-47.0); HEMOGLOBIN 8.5 g/dL (12.0-15.5); MEAN CORPUSCULAR HEMOGLOBIN 23.3 pg (27.0-33.4); MEAN CORPUSCULAR HGB CONC 33.2 g/dL (32.0-36.0); MEAN CORPUSCULAR VOLUME 70 fl (80-97); RED BLOOD COUNT 3.63 10^6/uL (3.72-5.28); RED CELL DISTRIBUTION WIDTH 19.8 % (11.5-14.0); WHITE BLOOD COUNT 8.1 10^3/uL (4.0-10.5)
--- NOTE | 2016-10-13 07:02 | PDOC PROGRESS REPORT ---
Subjective Progress Note for:: 10/13/16 Subjective:: Patient complains of pain Physical Exam Vital Signs: Temp Pulse Resp BP Pulse Ox 37.1 C 81 18 134/56 H 99 10/12/16 23:53 10/12/16 23:53 10/12/16 23:53 10/12/16 23:53 10/12/16 23:53 Intake & Output 10/11/16 10/12/16 10/13/16 06:59 06:59 06:59 Intake Total 1970 1900 1610 Output Total 700 1300 1500 Balance 1270 600 110 Weight 127.6 kg 128 kg General appearance: PRESENT: mild distress Head exam: PRESENT: normocephalic Respiratory exam: PRESENT: unlabored Cardiovascular exam: PRESENT: RRR Pulses: PRESENT: +1 pedal pulses bilateral Vascular exam: PRESENT: normal capillary refill GI/Abdominal exam: PRESENT: soft Extremities exam: PRESENT: other - Right. He code dressing is changed today. The wound is well approximated with scant serous drainage. Distal to the dressing. There is erythema, induration, and shininess to the skin, suggesting underlying cellulitis. Distal neurovascular examinations intact. Neurological exam: PRESENT: alert, awake, oriented to person, oriented to place , oriented to time, oriented to situation. ABSENT: motor sensory deficit Psychiatric exam: PRESENT: appropriate affect, normal mood. ABSENT: homicidal ideation, suicidal ideation Skin exam: PRESENT: dry, intact, warm. ABSENT: cyanosis, rash Results Laboratory Results: 10/13/16 04:00 10/11/16 05:28 10/13/16 04:00 WBC 8.1 RBC 3.63 L Hgb 8.5 L Hct 25.5 L MCV 70 L MCH 23.3 L MCHC 33.2 RDW 19.8 H Plt Count 239 Impressions: Chest X-Ray 10/10/16 00:00 IMPRESSION: NO SIGNIFICANT RADIOGRAPHIC FINDING IN THE CHEST. Assessment & Plan - Diagnosis (1) Infection of prosthetic right knee joint Is this a current diagnosis for this admission?: YesPlan: 45-year-old white female status post right knee irrigation debridement and polyethylene exchange for a strep periprosthetic infection. The patient's now receiving penicillin. Standard treatment for periprosthetic infection will be 6 weeks of IV antibiotic therapy. We'll discuss the antibiotic therapy with Dr. Rodriguez. PICC line to be placed today. - Time Time Spent with patient: 15-24 minutes Within: within 48 hours
[2016-10-13 07:56] LABS: ANION GAP 14 (5-19); BLOOD UREA NITROGEN 8 mg/dL (7-20); CALCIUM 8.6 mg/dL (8.4-10.2); CARBON DIOXIDE 24 mmol/L (22-30); CHLORIDE 104 mmol/L (98-107); CREATININE RESULT 0.63 mg/dL (0.52-1.25); GLUCOSE 99 mg/dL (75-110); POTASSIUM 4.1 mmol/L (3.6-5.0); SODIUM 142.3 mmol/L (137-145)
[2016-10-13 08:12] LABS: C-REACTIVE PROTEIN 219.4 mg/L (<10.0)
[2016-10-13] MEDS ORDERED: VANCOMYCIN HCL 0 MG in DEXTROSE 5%-WATER 250 ML IV NR (09:30)
--- NOTE | 2016-10-13 09:46 | PDOC PROGRESS REPORT ---
Subjective Progress Note for:: 10/13/16 Subjective:: Patient's headache is WORSE It is constant it is not relieved with Imitrex that usually relieves it She does have some neck pain and some mild photophobia She has nausea no vomiting She still has significant pain in the right lower extremity although she's been able to ambulate with physical therapy Physical Exam Vital Signs: Temp Pulse Resp BP Pulse Ox 98.5 F 77 16 138/58 H 96 10/13/16 08:00 10/13/16 08:00 10/13/16 08:00 10/13/16 08:00 10/13/16 08:00 Intake & Output 10/12/16 10/13/16 10/14/16 00:59 00:59 00:59 Intake Total 1920 1610 400 Output Total 2800 Balance 1920 -1190 400 Weight 127.6 kg 128 kg General appearance: PRESENT: mild distress, obese Head exam: PRESENT: atraumatic, normocephalic Eye exam: PRESENT: conjunctiva pink, EOMI, PERRLA. ABSENT: scleral icterus Neck exam: ABSENT: carotid bruit, JVD, lymphadenopathy, thyromegaly Respiratory exam: PRESENT: clear to auscultation chioma. ABSENT: rales, rhonchi, wheezes Pulses: PRESENT: normal dorsalis pedis pul GI/Abdominal exam: PRESENT: normal bowel sounds, soft. ABSENT: distended, guarding, mass, organolmegaly, rebound, tenderness Musculoskeletal exam: PRESENT: other - Right lower extremity there is cellulitis extending from the knee to the ankle Skin is warm to touch and red Neurological exam: PRESENT: awake, CN II-XII grossly intact Results Laboratory Results: 10/13/16 07:30 10/13/16 04:00 10/13/16 10/13/16 10/13/16 04:00 04:00 07:30 WBC 8.1 Cancelled RBC 3.63 L Cancelled Hgb 8.5 L Cancelled Hct 25.5 L Cancelled MCV 70 L Cancelled MCH 23.3 L Cancelled MCHC 33.2 Cancelled RDW 19.8 H Cancelled Plt Count 239 Cancelled Sodium 142.3 Potassium 4.1 Chloride 104 Carbon Dioxide 24 Anion Gap 14 BUN 8 Creatinine 0.63 Est GFR ( Amer) > 60 Est GFR (Non-Af Amer) > 60 Glucose 99 Calcium 8.6 C-Reactive Protein 219.4 H Impressions: Chest X-Ray 10/10/16 00:00 IMPRESSION: NO SIGNIFICANT RADIOGRAPHIC FINDING IN THE CHEST. Assessment & Plan - Diagnosis (2) Prosthetic joint infection Is this a current diagnosis for this admission?: YesPlan: Patient had a beta strep isolated in the joints 10/10/16 12:13 Gram Stain - Final Knee - Right Wound Culture - Preliminary Group A Beta Streptococcus No Anaerobic Organisms 10/10/16 12:12 Gram Stain - Final Knee - Right Wound Culture - Preliminary Group A Beta Streptococcus No Anaerobic Organisms 10/10/16 06:32 Gram Stain - Final Knee Fluid - Right Body Fluid Culture - Preliminary Group A Beta Streptococcus No Anaerobic Organisms 10/10/16 06:32 Gram Stain - Final Knee Fluid - Right Body Fluid Culture - Preliminary Group A Beta Streptococcus No Anaerobic Organisms Patient was treated for the last 48 hours with continuous IV penicillin as per infectious disease Dr. James [facility] Unfortunately patient's condition seems to be worsening since the broad spectrum coverage has been discontinued We will discontinue penicillin G and treat the patient with ceftriaxone and vancomycin Sensitivity is pending (3) Sepsis Qualifiers: Sepsis type: sepsis due to unspecified organism Qualified Code(s): A41.9 - Sepsis, unspecified organism Is this a current diagnosis for this admission?: Yes (4) Migraine headache Qualifiers: Migraine type: unspecified Status migrainosus presence: without status migrainosus Intractability: not intractable Qualified Code(s): G43.909 - Migraine, unspecified, not intractable, without status migrainosus Is this a current diagnosis for this admission?: YesPlan: The patient has intractable migraine headache Meningitis should be excluded Noted that the patient does have a history of migraine headaches and usually takes Imitrex with some relief We discussed the case with Dr. Nunez interventional radiology CT of the head no contrast will be performed And a spinal tap will be scheduled Patient did have xarelto 10 mg last nite ; the procedure may have to be delayed until tomorrow Decadron 10 mg IV will be given in attempt to improve the headache (5) Anemia Qualifiers: Anemia type: iron deficiency Is this a current diagnosis for this admission?: YesPlan: Acute on chronic anemia Iron deficiency anemia Patient was given 2 units of packed red cells 2 days ago We will follow-up closely H&H ; we initiated by mouth iron replacement - Time Time Spent with patient: 25-34 minutes
[2016-10-13] MEDS ORDERED: CEFEPIME 2 GM/D5W RTU 50 ML IV SCH (10:00)
[2016-10-13] MEDS ORDERED: DEXAMETHASONE SOD PHOS INJ 10 MG/1 ML VIAL IV ONE (10:00)
[2016-10-13] MEDS ORDERED: VANCOMYCIN HCL 2,000 MG in DEXTROSE 5%-WATER 500 ML IV ONE (11:00)
[2016-10-13] MEDS: FERROUS SULFATE 325 MG TABLET PO SCH ×2 (11:27→17:48)
[2016-10-13] MEDS: CEFTRIAXONE 2 GM/D5W RTU 50 ML IV SCH ×2 (11:35→22:11)
[2016-10-13] MEDS: SERTRALINE HCL 50 MG TABLET PO SCH ×2 (11:38→22:10)
[2016-10-13] MEDS: SENNOSIDES/DOCUSATE 8.6-50 MG 1 EACH TABLET PO SCH ×2 (11:38→17:48)
[2016-10-13] MEDS: FAMOTIDINE 20 MG TABLET PO SCH ×2 (11:38→17:50)
[2016-10-13] MEDS: PRENATAL VITAMIN W-O CA NO5/FE FUMARATE/FA CAPSULE PO SCH (11:38)
[2016-10-13] MEDS: DOCUSATE SODIUM 100 MG CAPSULE PO SCH ×2 (11:39→17:50)
[2016-10-13] MEDS: POLYETHYLENE GLYCOL 3350 POWDER 17 GM/1 PACKET PO SCH (11:40)
[2016-10-13] MEDS: ONDANSETRON HCL INJ/PF 4 MG/2 ML SDV IV PRN (12:45)
[2016-10-13] MEDS: HYDROCODONE/ACETAMINOPHEN 5-325 MG TABLET PO PRN (14:13)
[2016-10-13] MEDS: MORPHINE SULFATE 10 MG/ML INJ IV PRN (22:08)
[2016-10-13] MEDS: QUETIAPINE FUMARATE 100 MG TABLET PO SCH (22:10)
[2016-10-13] MEDS: NORMAL SALINE 10 ML SDV (SCHEDULED) IV SCH (22:13)
[2016-10-14] MEDS: VANCOMYCIN HCL 1,500 MG in DEXTROSE 5%-WATER 250 ML IV SCH ×2 (01:18→12:53)
[2016-10-14 05:04] LABS: ABSOLUTE EOSINOPHILS # (AUTO) 0.1 10^3/uL (0.0-0.6); ABSOLUTE LYMPHOCYTES (AUTO) 1.1 10^3/uL (0.5-4.7); ABSOLUTE MONOCYTES (AUTO) 0.5 10^3/uL (0.1-1.4); ABSOLUTE NEUT (AUTO) 5.2 10^3/uL (1.7-8.2); BASOPHILS % (AUTO) 0.5 % (0-2); EOSINOPHILS % (AUTO) 1.9 % (0-6); HEMATOCRIT 23.4 % (36.0-47.0); HGB HCT DIFFERENCE -0.9; LYMPHOCYTES % (AUTO) 16.2 % (13-45); MEAN CORPUSCULAR HEMOGLOBIN 23.4 pg (27.0-33.4); MEAN CORPUSCULAR HGB CONC 32.2 g/dL (32.0-36.0); MEAN CORPUSCULAR VOLUME 73 fl (80-97); RED BLOOD COUNT 3.23 10^6/uL (3.72-5.28); RED CELL DISTRIBUTION WIDTH 19.3 % (11.5-14.0); SEGMENTED NEUTROPHILS % (AUTO) 74.4 % (42-78)
[2016-10-14 05:06] LABS: PROTHROMBIN TIME 13.5 SEC (11.4-15.4)
[2016-10-14 05:10] LABS: HEMOGLOBIN 7.5 g/dL (12.0-15.5)
[2016-10-14] MEDS: GABAPENTIN 300 MG CAPSULE PO SCH ×3 (05:51→23:32)
[2016-10-14] MEDS: LANSOPRAZOLE 30 MG TAB.RAP.DR PO SCH (05:51)
[2016-10-14] MEDS: HYDROCODONE/ACETAMINOPHEN 5-325 MG TABLET PO PRN ×2 (05:54→14:21)
--- NOTE | 2016-10-14 06:53 | PDOC PROGRESS REPORT ---
Subjective Progress Note for:: 10/14/16 Physical Exam Vital Signs: Temp Pulse Resp BP Pulse Ox 36.6 C 81 19 129/46 H 99 10/14/16 00:25 10/14/16 00:25 10/14/16 00:25 10/14/16 00:25 10/14/16 00:25 Intake & Output 10/12/16 10/13/16 10/14/16 06:59 06:59 06:59 Intake Total 1900 1610 1420 Output Total 1300 1500 1503 Balance 600 110 -83 Weight 127.6 kg 128 kg General appearance: PRESENT: no acute distress Head exam: PRESENT: normocephalic Eye exam: PRESENT: EOMI Respiratory exam: PRESENT: unlabored Cardiovascular exam: PRESENT: RRR Vascular exam: PRESENT: normal capillary refill GI/Abdominal exam: PRESENT: soft Extremities exam: PRESENT: other - Right knee watson dressing with some drainage at the inferior aspect but not saturated. Right lower extremity erythema, induration, and tenderness seemed to be better than yesterday. Neurological exam: PRESENT: alert, awake, oriented to person, oriented to place , oriented to time, oriented to situation. ABSENT: motor sensory deficit Psychiatric exam: PRESENT: appropriate affect, normal mood. ABSENT: homicidal ideation, suicidal ideation Results Laboratory Results: 10/14/16 04:15 10/13/16 04:00 10/13/16 10/13/16 10/14/16 04:00 07:30 04:15 WBC Cancelled 7.0 RBC Cancelled 3.23 L Hgb Cancelled 7.5 L Hct Cancelled 23.4 L MCV Cancelled 73 L MCH Cancelled 23.4 L MCHC Cancelled 32.2 RDW Cancelled 19.3 H Plt Count Cancelled 219 Seg Neutrophils % 74.4 Lymphocytes % 16.2 Monocytes % 7.0 Eosinophils % 1.9 Basophils % 0.5 Absolute Neutrophils 5.2 Absolute Lymphocytes 1.1 Absolute Monocytes 0.5 Absolute Eosinophils 0.1 Absolute Basophils 0.0 Sodium 142.3 Potassium 4.1 Chloride 104 Carbon Dioxide 24 Anion Gap 14 BUN 8 Creatinine 0.63 Est GFR ( Amer) > 60 Est GFR (Non-Af Amer) > 60 Glucose 99 Calcium 8.6 C-Reactive Protein 219.4 H Impressions: Chest X-Ray 10/10/16 00:00 IMPRESSION: NO SIGNIFICANT RADIOGRAPHIC FINDING IN THE CHEST. Guidance Fluoroscopy 10/13/16 00:00 IMPRESSION: SUCCESSFUL PLACEMENT OF A 5 FR DUAL LUMEN 44 CM PICC IN THE left basilic VEIN. Interventional Vascular Procedure 10/13/16 00:00 IMPRESSION: SUCCESSFUL PLACEMENT OF A 5 FR DUAL LUMEN 44 CM PICC IN THE left basilic VEIN. PICC Line Insertion 10/13/16 08:29 IMPRESSION: SUCCESSFUL PLACEMENT OF A 5 FR DUAL LUMEN 44 CM PICC IN THE left basilic VEIN. Head CT 10/13/16 09:34 IMPRESSION: NORMAL BRAIN CT WITHOUT CONTRAST. Lumbar Spine CT 10/13/16 17:37 IMPRESSION: No acute osseous finding.Scattered mildly enlarged retroperitoneal lymph nodes.No focal inflammatory changes are identified. Status: Imported from PACS Assessment & Plan - Diagnosis (1) Infection of prosthetic right knee joint Is this a current diagnosis for this admission?: YesPlan: 45-year-old white female status post IND of the streptococcal right periprosthetic knee infection with an associated right lower extremity cellulitis. This may well have been the source the patient's bacteremia. I was concerned yesterday that formation in the right lower extremity was progressing. She was then taken off the penicillin placed back on a more broad- spectrum antibiotic. I think is somewhat improved today. - Time Time Spent with patient: 15-24 minutes Anticipated discharge: Home with Homehealth Within: Other
[2016-10-14] MEDS: FERROUS SULFATE 325 MG TABLET PO SCH ×2 (08:28→17:51)
[2016-10-14 10:47] LABS: GLUCOSE,CSF 59 mg/dL (40-70)
[2016-10-14 11:06] LABS: APPEARANCE ALL TUBES CLEAR
[2016-10-14 11:07] LABS: RBC AVERAGE 184.5; RBC DILUENT USED NONE USED; RBC DILUTION FACTOR 1; RBC SIDE 1 178; RBC SIDE 2 191; TOTAL RBC SQUARES COUNTED 225
[2016-10-14 11:08] LABS: WHITE BLOOD CELL,CSF 2 /uL (0-5)
[2016-10-14 11:09] LABS: H. INFLUENZAE TYPE B AG NEGATIVE (NEGATIVE); S. PNEUMONIAE AG NEGATIVE (NEGATIVE); STREP. GROUP B AG NEGATIVE (NEGATIVE)
[2016-10-14 11:10] LABS: CSF CULTURED REQUIRED CSF CULTURE ORDERED (CSFY)
[2016-10-14] MEDS: CEFTRIAXONE 2 GM/D5W RTU 50 ML IV SCH ×2 (11:12→11:15)
[2016-10-14] MEDS: DOCUSATE SODIUM 100 MG CAPSULE PO SCH ×2 (11:13→17:52)
[2016-10-14] MEDS: PRENATAL VITAMIN W-O CA NO5/FE FUMARATE/FA CAPSULE PO SCH (11:13)
[2016-10-14] MEDS: SENNOSIDES/DOCUSATE 8.6-50 MG 1 EACH TABLET PO SCH ×2 (11:13→17:52)
[2016-10-14] MEDS: SERTRALINE HCL 50 MG TABLET PO SCH ×2 (11:14→23:32)
[2016-10-14] MEDS: FAMOTIDINE 20 MG TABLET PO SCH ×2 (11:15→17:52)
[2016-10-14] MEDS: POLYETHYLENE GLYCOL 3350 POWDER 17 GM/1 PACKET PO SCH (11:16)
[2016-10-14] MEDS: MORPHINE SULFATE 10 MG/ML INJ IM PRN ×2 (11:30→16:47)
[2016-10-14] MEDS: NORMAL SALINE 10 ML SDV (SCHEDULED) IV SCH ×2 (11:31→23:35)
[2016-10-14] MEDS: SUMATRIPTAN SUCCINATE 50 MG TABLET PO PRN (12:53)
[2016-10-14] MEDS: ONDANSETRON HCL INJ/PF 4 MG/2 ML SDV IV PRN (12:57)
--- NOTE | 2016-10-14 16:17 | PDOC PROGRESS REPORT ---
Subjective Progress Note for:: 10/14/16 Subjective:: No issues reported. Patient denies fever, chills, headache, new focal weakness, chest pain, shortness of breath, abdominal pain, nausea, vomiting, diarrhea, constipation. Physical Exam Vital Signs: Temp Pulse Resp BP Pulse Ox 98.3 F 73 18 120/51 L 100 10/14/16 11:18 10/14/16 11:18 10/14/16 11:18 10/14/16 11:18 10/14/16 11:18 Intake & Output 10/13/16 10/14/16 10/15/16 06:59 06:59 06:59 Intake Total 1610 2040 0 Output Total 1500 1506 Balance 110 534 0 Weight 128 kg GENERAL: No acute distress HEENT: Conjunctiva clear, nonicteric, moist mucous membranes, no JVD, midline trachea RESPIRATORY: Clear to auscultation bilaterally, no wheezes, no rhonchi CARDIAC: Regular rate and rhythm, no murmurs/gallops/rubs ABDOMEN: Soft, nondistended, nontender, positive bowel sounds, no rebound, no guarding EXTREMETIES: No edema, cyanosis, clubbing NEUROLOGIC: Alert, oriented to person/place/time, CN's grossly intact, no focal deficits SKIN: No rash, wounds PSYCH: Normal mood, normal affect Results Laboratory Results: 10/14/16 04:15 10/13/16 04:00 10/14/16 10/14/16 10/14/16 04:15 09:58 09:58 WBC 7.0 RBC 3.23 L Hgb 7.5 L Hct 23.4 L MCV 73 L MCH 23.4 L MCHC 32.2 RDW 19.3 H Plt Count 219 Seg Neutrophils % 74.4 Lymphocytes % 16.2 Monocytes % 7.0 Eosinophils % 1.9 Basophils % 0.5 Absolute Neutrophils 5.2 Absolute Lymphocytes 1.1 Absolute Monocytes 0.5 Absolute Eosinophils 0.1 Absolute Basophils 0.0 Fluid Tube Number 4 CSF Volume 7.0 CSF Appearance CLEAR CSF Color COLORLESS CSF WBC 2 CSF RBC 205 CSF Comment CSF Glucose 59 CSF Total Protein 33 Blood Type Antibody Screen 10/14/16 10/14/16 09:58 11:10 WBC RBC Hgb Hct MCV MCH MCHC RDW Plt Count Seg Neutrophils % Lymphocytes % Monocytes % Eosinophils % Basophils % Absolute Neutrophils Absolute Lymphocytes Absolute Monocytes Absolute Eosinophils Absolute Basophils Fluid Tube Number CSF Volume CSF Appearance CSF Color CSF WBC CSF RBC CSF Comment CSF CULTURE ORDERED CSF Glucose CSF Total Protein Blood Type O POSITIVE Antibody Screen NEGATIVE 10/12/16 10:10 Throat Throat Culture - Final C.albicans/C.dubliniensis Normal Nyla Impressions: Chest X-Ray 10/10/16 00:00 IMPRESSION: NO SIGNIFICANT RADIOGRAPHIC FINDING IN THE CHEST. Interventional Vascular Procedure 10/13/16 00:00 IMPRESSION: SUCCESSFUL PLACEMENT OF A 5 FR DUAL LUMEN 44 CM PICC IN THE left basilic VEIN. PICC Line Insertion 10/13/16 08:29 IMPRESSION: SUCCESSFUL PLACEMENT OF A 5 FR DUAL LUMEN 44 CM PICC IN THE left basilic VEIN. Head CT 10/13/16 09:34 IMPRESSION: NORMAL BRAIN CT WITHOUT CONTRAST. Lumbar Spine CT 10/13/16 17:37 IMPRESSION: No acute osseous finding.Scattered mildly enlarged retroperitoneal lymph nodes.No focal inflammatory changes are identified. Guidance Fluoroscopy 10/14/16 00:00 IMPRESSION: Lumbar puncture under fluoroscopy. No immediate complication. Lumbar Puncture 10/14/16 08:00 IMPRESSION: Lumbar puncture under fluoroscopy. No immediate complication. Assessment & Plan - Diagnosis (1) Sepsis Qualifiers: Sepsis type: sepsis due to unspecified organism Qualified Code(s): A41.9 - Sepsis, unspecified organism Is this a current diagnosis for this admission?: YesPlan: Secondary to septic joint. Patient now afebrile. White blood count normal. (2) Infection of prosthetic right knee joint Is this a current diagnosis for this admission?: YesPlan: Synovial fluid cultures growing Streptococcus species sensitive to Rocephin. Continue IV Rocephin. Discontinue vancomycin. Dr. Rivera of orthopedics managing. (3) Migraine headache Qualifiers: Migraine type: unspecified Status migrainosus presence: without status migrainosus Intractability: not intractable Qualified Code(s): G43.909 - Migraine, unspecified, not intractable, without status migrainosus Is this a current diagnosis for this admission?: YesPlan: Head CT negative. Lumbar puncture negative. (4) Acute blood loss as cause of postoperative anemia Is this a current diagnosis for this admission?: YesPlan: Being transfused 2 units PRBC today. - Time Time Spent with patient: 25-34 minutes
[2016-10-14] MEDS ORDERED: VANCOMYCIN HCL 0 MG in DEXTROSE 5%-WATER 250 ML IV NR (16:45)
[2016-10-14] MEDS: MORPHINE SULFATE 10 MG/ML INJ IV PRN (20:01)
[2016-10-14] MEDS: QUETIAPINE FUMARATE 100 MG TABLET PO SCH (23:33)
[2016-10-15] MEDS: VANCOMYCIN HCL 1,500 MG in DEXTROSE 5%-WATER 250 ML IV SCH ×2 (00:28→12:21)
[2016-10-15] MEDS: HYDROCODONE/ACETAMINOPHEN 5-325 MG TABLET PO PRN ×4 (00:30→22:28)
[2016-10-15] MEDS ORDERED: CEFTRIAXONE 2 GM/D5W RTU 2 GM/50 ML RTUPB IV SCH ×2 (03:00→18:00)
[2016-10-15] MEDS: GABAPENTIN 300 MG CAPSULE PO SCH ×3 (06:04→22:27)
[2016-10-15] MEDS: LANSOPRAZOLE 30 MG TAB.RAP.DR PO SCH (06:04)
[2016-10-15 06:52] LABS: ABSOLUTE EOSINOPHILS # (AUTO) 0.2 10^3/uL (0.0-0.6); ABSOLUTE LYMPHOCYTES (AUTO) 1.2 10^3/uL (0.5-4.7); ABSOLUTE MONOCYTES (AUTO) 0.4 10^3/uL (0.1-1.4); ABSOLUTE NEUT (AUTO) 5.2 10^3/uL (1.7-8.2); BASOPHILS % (AUTO) 0.6 % (0-2); EOSINOPHILS % (AUTO) 2.6 % (0-6); HEMATOCRIT 27.7 % (36.0-47.0); HEMOGLOBIN 9.2 g/dL (12.0-15.5); HGB HCT DIFFERENCE -0.1; LYMPHOCYTES % (AUTO) 16.7 % (13-45); MEAN CORPUSCULAR HGB CONC 33.4 g/dL (32.0-36.0); MEAN CORPUSCULAR VOLUME 72 fl (80-97); RED BLOOD COUNT 3.85 10^6/uL (3.72-5.28); RED CELL DISTRIBUTION WIDTH 19.5 % (11.5-14.0); SEGMENTED NEUTROPHILS % (AUTO) 74.1 % (42-78)
--- NOTE | 2016-10-15 07:00 | PDOC PROGRESS REPORT ---
Subjective Progress Note for:: 10/15/16 Physical Exam Vital Signs: Temp Pulse Resp BP Pulse Ox 37.6 C 78 20 129/69 H 98 10/15/16 00:22 10/15/16 00:22 10/15/16 00:22 10/15/16 00:22 10/15/16 00:22 Intake & Output 10/13/16 10/14/16 10/15/16 06:59 06:59 06:59 Intake Total 1610 2040 2210 Output Total 1500 1506 Balance 331 123 1783 Weight 128 kg General appearance: PRESENT: mild distress Head exam: PRESENT: normocephalic Respiratory exam: PRESENT: unlabored Cardiovascular exam: PRESENT: RRR Vascular exam: PRESENT: normal capillary refill GI/Abdominal exam: PRESENT: soft Rectal exam: PRESENT: deferred Extremities exam: PRESENT: other - Right lower extremity watson dressing with minor to moderate drainage, which appears relatively old. Watson dressing will be replaced today. The remainder of the lower extremity continues to be indurated, erythematous and tender without any clear improvement clinically Results Laboratory Results: 10/11/16 10/14/16 10/14/16 08:27 09:58 09:58 Fluid Tube Number 4 CSF Volume 7.0 CSF Appearance CLEAR CSF Color COLORLESS CSF WBC 2 CSF RBC 205 CSF Comment CSF Glucose 59 CSF Total Protein 33 Blood Type O POSITIVE Antibody Screen NEGATIVE 10/14/16 10/14/16 09:58 11:10 Fluid Tube Number CSF Volume CSF Appearance CSF Color CSF WBC CSF RBC CSF Comment CSF CULTURE ORDERED CSF Glucose CSF Total Protein Blood Type O POSITIVE Antibody Screen NEGATIVE 10/12/16 10:10 Throat Throat Culture - Final C.albicans/C.dubliniensis Normal Nyla Impressions: Chest X-Ray 10/10/16 00:00 IMPRESSION: NO SIGNIFICANT RADIOGRAPHIC FINDING IN THE CHEST. Interventional Vascular Procedure 10/13/16 00:00 IMPRESSION: SUCCESSFUL PLACEMENT OF A 5 FR DUAL LUMEN 44 CM PICC IN THE left basilic VEIN. PICC Line Insertion 10/13/16 08:29 IMPRESSION: SUCCESSFUL PLACEMENT OF A 5 FR DUAL LUMEN 44 CM PICC IN THE left basilic VEIN. Head CT 10/13/16 09:34 IMPRESSION: NORMAL BRAIN CT WITHOUT CONTRAST. Lumbar Spine CT 10/13/16 17:37 IMPRESSION: No acute osseous finding.Scattered mildly enlarged retroperitoneal lymph nodes.No focal inflammatory changes are identified. Guidance Fluoroscopy 10/14/16 00:00 IMPRESSION: Lumbar puncture under fluoroscopy. No immediate complication. Venous Doppler Study 10/14/16 00:00 IMPRESSION: NO EVIDENCE OF DVT OR SVT IN THE RIGHT LEG. Lumbar Puncture 10/14/16 08:00 IMPRESSION: Lumbar puncture under fluoroscopy. No immediate complication. Status: Imported from PACS Assessment & Plan - Diagnosis (1) Infection of prosthetic right knee joint Is this a current diagnosis for this admission?: YesPlan: Patient now receiving Rocephin for streptococcal periprosthetic infection. Bacterial sensitivity suggests that this is an appropriate medication. Clinical improvement seems to be lagging. Now that a negative spinal tap has been performed. Hopefully, physical therapy can attempt to mobilize the patient - Time Time Spent with patient: 15-24 minutes Within: Other
[2016-10-15 07:06] LABS: ANION GAP 11 (5-19); BLOOD UREA NITROGEN 5 mg/dL (7-20); CALCIUM 8.6 mg/dL (8.4-10.2); CARBON DIOXIDE 30 mmol/L (22-30); CHLORIDE 102 mmol/L (98-107); CREATININE RESULT 0.53 mg/dL (0.52-1.25); GLUCOSE 96 mg/dL (75-110); POTASSIUM 3.8 mmol/L (3.6-5.0); SODIUM 143.3 mmol/L (137-145)
[2016-10-15] MEDS: FERROUS SULFATE 325 MG TABLET PO SCH ×2 (08:05→17:28)
[2016-10-15] MEDS: PRENATAL VITAMIN W-O CA NO5/FE FUMARATE/FA CAPSULE PO SCH (09:11)
[2016-10-15] MEDS: SUMATRIPTAN SUCCINATE 50 MG TABLET PO PRN ×2 (09:11→13:19)
[2016-10-15] MEDS: DOCUSATE SODIUM 100 MG CAPSULE PO SCH ×2 (09:11→17:26)
[2016-10-15] MEDS: SENNOSIDES/DOCUSATE 8.6-50 MG 1 EACH TABLET PO SCH ×2 (09:12→17:26)
[2016-10-15] MEDS: NORMAL SALINE 10 ML SDV (AFTER EACH USE) IV PRN (09:12)
[2016-10-15] MEDS: FAMOTIDINE 20 MG TABLET PO SCH ×2 (09:12→17:26)
[2016-10-15] MEDS: SERTRALINE HCL 50 MG TABLET PO SCH ×2 (09:12→22:28)
[2016-10-15] MEDS: NORMAL SALINE 10 ML SDV (SCHEDULED) IV SCH ×2 (09:12→22:35)
[2016-10-15] MEDS: POLYETHYLENE GLYCOL 3350 POWDER 17 GM/1 PACKET PO SCH (09:14)
[2016-10-15] MEDS: ONDANSETRON HCL INJ/PF 4 MG/2 ML SDV IV PRN (11:36)
--- NOTE | 2016-10-15 17:50 | PDOC PROGRESS REPORT ---
Subjective Progress Note for:: 10/15/16 Subjective:: No issues reported. Patient feels that her right lower extremity is no better than admission. Patient denies fever, chills, headache, new focal weakness, chest pain, shortness of breath, abdominal pain, nausea, vomiting, diarrhea, constipation. Physical Exam Vital Signs: Temp Pulse Resp BP Pulse Ox 99.9 F 76 18 149/80 H 96 10/15/16 16:00 10/15/16 16:00 10/15/16 16:00 10/15/16 16:00 10/15/16 16:00 Intake & Output 10/14/16 10/15/16 10/16/16 06:59 06:59 06:59 Intake Total 2040 2770 837 Output Total 1506 Balance 534 2770 837 GENERAL: No acute distress HEENT: Conjunctiva clear, nonicteric, moist mucous membranes, no JVD, midline trachea RESPIRATORY: Clear to auscultation bilaterally, no wheezes, no rhonchi CARDIAC: Regular rate and rhythm, no murmurs/gallops/rubs ABDOMEN: Soft, nondistended, nontender, positive bowel sounds, no rebound, no guarding EXTREMETIES: No edema, cyanosis, clubbing NEUROLOGIC: Alert, oriented to person/place/time, CN's grossly intact, no focal deficits SKIN: Erythema/induration of right lower extremity distal to right knee. Incision of her right knee intact. PSYCH: Normal mood, normal affect Results Laboratory Results: 10/15/16 05:55 10/15/16 05:55 10/14/16 10/15/16 10/15/16 11:10 05:55 05:55 WBC 7.0 RBC 3.85 Hgb 9.2 L Hct 27.7 L MCV 72 L MCH 24.0 L MCHC 33.4 RDW 19.5 H Plt Count 224 Seg Neutrophils % 74.1 Lymphocytes % 16.7 Monocytes % 6.0 Eosinophils % 2.6 Basophils % 0.6 Absolute Neutrophils 5.2 Absolute Lymphocytes 1.2 Absolute Monocytes 0.4 Absolute Eosinophils 0.2 Absolute Basophils 0.0 Sodium 143.3 Potassium 3.8 Chloride 102 Carbon Dioxide 30 Anion Gap 11 BUN 5 L Creatinine 0.53 Est GFR ( Amer) > 60 Est GFR (Non-Af Amer) > 60 Glucose 96 Calcium 8.6 Blood Type O POSITIVE Antibody Screen NEGATIVE Impressions: Chest X-Ray 10/10/16 00:00 IMPRESSION: NO SIGNIFICANT RADIOGRAPHIC FINDING IN THE CHEST. Interventional Vascular Procedure 10/13/16 00:00 IMPRESSION: SUCCESSFUL PLACEMENT OF A 5 FR DUAL LUMEN 44 CM PICC IN THE left basilic VEIN. PICC Line Insertion 10/13/16 08:29 IMPRESSION: SUCCESSFUL PLACEMENT OF A 5 FR DUAL LUMEN 44 CM PICC IN THE left basilic VEIN. Head CT 10/13/16 09:34 IMPRESSION: NORMAL BRAIN CT WITHOUT CONTRAST. Lumbar Spine CT 10/13/16 17:37 IMPRESSION: No acute osseous finding.Scattered mildly enlarged retroperitoneal lymph nodes.No focal inflammatory changes are identified. Guidance Fluoroscopy 10/14/16 00:00 IMPRESSION: Lumbar puncture under fluoroscopy. No immediate complication. Venous Doppler Study 10/14/16 00:00 IMPRESSION: NO EVIDENCE OF DVT OR SVT IN THE RIGHT LEG. Lumbar Puncture 10/14/16 08:00 IMPRESSION: Lumbar puncture under fluoroscopy. No immediate complication. Lower Extremity CT 10/15/16 00:00 IMPRESSION: POSTOPERATIVE CHANGES FROM RECENT KNEE PROSTHESIS. DIFFUSE EDEMA IN THE SUBCUTANEOUS FATTY TISSUES OF THE LOWER LEG. NO FOCAL ABSCESS OR OTHER SIGNIFICANT ABNORMALITY. Assessment & Plan - Diagnosis (1) Sepsis Qualifiers: Sepsis type: sepsis due to unspecified organism Qualified Code(s): A41.9 - Sepsis, unspecified organism Is this a current diagnosis for this admission?: YesPlan: Secondary to septic joint. Patient has intermittent low-grade fever. White blood count normal. (2) Infection of prosthetic right knee joint Is this a current diagnosis for this admission?: YesPlan: Synovial fluid cultures growing Streptococcus species. Continue IV vancomycin. Change IV Rocephin to IV cefepime for improved gram-negative coverage given lack of clinical improvement. Dr. Rivera of orthopedics managing. CT scan of right lower extremity on 10/15/2016 shows no deep space fluid collection. (3) Migraine headache Qualifiers: Migraine type: unspecified Status migrainosus presence: without status migrainosus Intractability: not intractable Qualified Code(s): G43.909 - Migraine, unspecified, not intractable, without status migrainosus Is this a current diagnosis for this admission?: Yes (4) Acute blood loss as cause of postoperative anemia Is this a current diagnosis for this admission?: YesPlan: Transfused 2 units PRBC on 10/14/2016. Continue to monitor H&H for stability. Continue to hold Xarelto for DVT prophylaxis. Continue iron supplementation. - Time Time Spent with patient: 35 or more minutes
[2016-10-15] MEDS: CEFEPIME 1 GM/D5W RTU 1 GM/50 ML RTUPB IV SCH (19:28)
[2016-10-15] MEDS: QUETIAPINE FUMARATE 100 MG TABLET PO SCH (22:28)
[2016-10-16] MEDS: VANCOMYCIN HCL 1,500 MG in DEXTROSE 5%-WATER 250 ML IV SCH ×2 (00:43→12:02)
[2016-10-16] MEDS: MORPHINE SULFATE 10 MG/ML INJ IV PRN (03:59)
[2016-10-16] MEDS: LANSOPRAZOLE 30 MG TAB.RAP.DR PO SCH (05:57)
[2016-10-16] MEDS: GABAPENTIN 300 MG CAPSULE PO SCH ×3 (05:57→22:48)
--- NOTE | 2016-10-16 06:44 | PDOC PROGRESS REPORT ---
Subjective Progress Note for:: 10/16/16 Subjective:: Patient with persistent complaints of neck and occipital pain Physical Exam Vital Signs: Temp Pulse Resp BP Pulse Ox 37.2 C 90 18 139/66 H 100 10/16/16 00:00 10/16/16 00:00 10/16/16 00:00 10/16/16 00:00 10/16/16 00:00 Intake & Output 10/14/16 10/15/16 10/16/16 06:59 06:59 06:59 Intake Total 2040 2770 1523 Output Total 1506 Balance 534 2770 1523 General appearance: PRESENT: mild distress Head exam: PRESENT: normocephalic Respiratory exam: PRESENT: unlabored Cardiovascular exam: PRESENT: RRR Pulses: PRESENT: +1 pedal pulses bilateral Vascular exam: PRESENT: normal capillary refill Extremities exam: PRESENT: other - Right knee dressing is clean dry and intact. Right lower extremity swelling, erythema, and tenderness of largely unchanged. Neurological exam: PRESENT: alert, awake, oriented to person, oriented to place , oriented to time, oriented to situation, CN II-XII grossly intact. ABSENT: motor sensory deficit Psychiatric exam: PRESENT: appropriate affect, normal mood. ABSENT: homicidal ideation, suicidal ideation Results Laboratory Results: 10/15/16 05:55 10/15/16 05:55 10/14/16 10/15/16 10/15/16 11:10 05:55 05:55 WBC 7.0 RBC 3.85 Hgb 9.2 L Hct 27.7 L MCV 72 L MCH 24.0 L MCHC 33.4 RDW 19.5 H Plt Count 224 Seg Neutrophils % 74.1 Lymphocytes % 16.7 Monocytes % 6.0 Eosinophils % 2.6 Basophils % 0.6 Absolute Neutrophils 5.2 Absolute Lymphocytes 1.2 Absolute Monocytes 0.4 Absolute Eosinophils 0.2 Absolute Basophils 0.0 Sodium 143.3 Potassium 3.8 Chloride 102 Carbon Dioxide 30 Anion Gap 11 BUN 5 L Creatinine 0.53 Est GFR ( Amer) > 60 Est GFR (Non-Af Amer) > 60 Glucose 96 Calcium 8.6 Blood Type O POSITIVE Antibody Screen NEGATIVE Impressions: Chest X-Ray 10/10/16 00:00 IMPRESSION: NO SIGNIFICANT RADIOGRAPHIC FINDING IN THE CHEST. Interventional Vascular Procedure 10/13/16 00:00 IMPRESSION: SUCCESSFUL PLACEMENT OF A 5 FR DUAL LUMEN 44 CM PICC IN THE left basilic VEIN. PICC Line Insertion 10/13/16 08:29 IMPRESSION: SUCCESSFUL PLACEMENT OF A 5 FR DUAL LUMEN 44 CM PICC IN THE left basilic VEIN. Head CT 10/13/16 09:34 IMPRESSION: NORMAL BRAIN CT WITHOUT CONTRAST. Lumbar Spine CT 10/13/16 17:37 IMPRESSION: No acute osseous finding.Scattered mildly enlarged retroperitoneal lymph nodes.No focal inflammatory changes are identified. Guidance Fluoroscopy 10/14/16 00:00 IMPRESSION: Lumbar puncture under fluoroscopy. No immediate complication. Venous Doppler Study 10/14/16 00:00 IMPRESSION: NO EVIDENCE OF DVT OR SVT IN THE RIGHT LEG. Lumbar Puncture 10/14/16 08:00 IMPRESSION: Lumbar puncture under fluoroscopy. No immediate complication. Lower Extremity CT 10/15/16 00:00 IMPRESSION: POSTOPERATIVE CHANGES FROM RECENT KNEE PROSTHESIS. DIFFUSE EDEMA IN THE SUBCUTANEOUS FATTY TISSUES OF THE LOWER LEG. NO FOCAL ABSCESS OR OTHER SIGNIFICANT ABNORMALITY. Status: Imported from PACS Assessment & Plan - Diagnosis (1) Infection of prosthetic right knee joint Is this a current diagnosis for this admission?: YesPlan: Patient with ongoing right lower extremity shoes as well as occipital headache. - Time Time Spent with patient: 15-24 minutes
[2016-10-16 07:06] LABS: HEMATOCRIT 29.1 % (36.0-47.0); HEMOGLOBIN 9.6 g/dL (12.0-15.5); HGB HCT DIFFERENCE -0.3; MEAN CORPUSCULAR HEMOGLOBIN 23.8 pg (27.0-33.4); MEAN CORPUSCULAR HGB CONC 32.8 g/dL (32.0-36.0); MEAN CORPUSCULAR VOLUME 73 fl (80-97); RED BLOOD COUNT 4.02 10^6/uL (3.72-5.28); RED CELL DISTRIBUTION WIDTH 19.3 % (11.5-14.0); WHITE BLOOD COUNT 6.8 10^3/uL (4.0-10.5)
[2016-10-16] MEDS: CEFEPIME 1 GM/D5W RTU 1 GM/50 ML RTUPB IV SCH ×2 (07:08→19:26)
[2016-10-16 07:43] LABS: ANION GAP 11 (5-19); BLOOD UREA NITROGEN 5 mg/dL (7-20); CALCIUM 8.8 mg/dL (8.4-10.2); CARBON DIOXIDE 32 mmol/L (22-30); CHLORIDE 102 mmol/L (98-107); CREATININE RESULT 0.52 mg/dL (0.52-1.25); GLUCOSE 95 mg/dL (75-110); SODIUM 144.9 mmol/L (137-145)
[2016-10-16] MEDS: FERROUS SULFATE 325 MG TABLET PO SCH ×2 (08:04→17:04)
[2016-10-16] MEDS: HYDROCODONE/ACETAMINOPHEN 5-325 MG TABLET PO PRN ×2 (08:05→17:13)
[2016-10-16] MEDS: NORMAL SALINE 10 ML SDV (AFTER EACH USE) IV PRN (08:11)
[2016-10-16 08:13] LABS: ERYTHROCYTE SEDIMENTATION RATE 93 mm/hr (0-20)
[2016-10-16] MEDS: ONDANSETRON 4 MG TAB.RAPDIS PO PRN (08:40)
[2016-10-16] MEDS: SENNOSIDES/DOCUSATE 8.6-50 MG 1 EACH TABLET PO SCH ×2 (11:12→17:07)
[2016-10-16] MEDS: DOCUSATE SODIUM 100 MG CAPSULE PO SCH ×2 (11:13→17:07)
[2016-10-16] MEDS: SERTRALINE HCL 50 MG TABLET PO SCH ×2 (11:13→22:49)
[2016-10-16] MEDS: PRENATAL VITAMIN W-O CA NO5/FE FUMARATE/FA CAPSULE PO SCH (11:16)
[2016-10-16] MEDS: FAMOTIDINE 20 MG TABLET PO SCH ×2 (11:17→17:07)
[2016-10-16] MEDS: POLYETHYLENE GLYCOL 3350 POWDER 17 GM/1 PACKET PO SCH (11:17)
[2016-10-16] MEDS: SUMATRIPTAN SUCCINATE 50 MG TABLET PO PRN (11:56)
[2016-10-16] MEDS: NORMAL SALINE 10 ML SDV (SCHEDULED) IV SCH (11:58)
--- NOTE | 2016-10-16 15:51 | PDOC PROGRESS REPORT ---
Subjective Progress Note for:: 10/16/16 Subjective:: No issues reported. Patient feels that her right lower extremity is no better than admission. Patient denies fever, chills, headache, new focal weakness, chest pain, shortness of breath, abdominal pain, nausea, vomiting, diarrhea, constipation. Physical Exam Vital Signs: Temp Pulse Resp BP Pulse Ox 98.3 F 68 16 152/82 H 100 10/16/16 12:00 10/16/16 12:00 10/16/16 12:00 10/16/16 12:00 10/16/16 12:00 Intake & Output 10/15/16 10/16/16 10/17/16 06:59 06:59 06:59 Intake Total 2770 1523 Balance 2770 1523 GENERAL: No acute distress HEENT: Conjunctiva clear, nonicteric, moist mucous membranes, no JVD, midline trachea RESPIRATORY: Clear to auscultation bilaterally, no wheezes, no rhonchi CARDIAC: Regular rate and rhythm, no murmurs/gallops/rubs ABDOMEN: Soft, nondistended, nontender, positive bowel sounds, no rebound, no guarding EXTREMETIES: No edema, cyanosis, clubbing NEUROLOGIC: Alert, oriented to person/place/time, CN's grossly intact, no focal deficits SKIN: Erythema/induration of right lower extremity distal to right knee. Incision of her right knee intact. PSYCH: Normal mood, normal affect Results Laboratory Results: 10/16/16 06:00 10/16/16 06:00 10/16/16 10/16/16 06:00 06:00 WBC 6.8 RBC 4.02 Hgb 9.6 L Hct 29.1 L MCV 73 L MCH 23.8 L MCHC 32.8 RDW 19.3 H Plt Count 250 Sodium 144.9 Potassium 4.0 Chloride 102 Carbon Dioxide 32 H Anion Gap 11 BUN 5 L Creatinine 0.52 Est GFR ( Amer) > 60 Est GFR (Non-Af Amer) > 60 Glucose 95 Calcium 8.8 C-Reactive Protein 124.0 H Impressions: Chest X-Ray 10/10/16 00:00 IMPRESSION: NO SIGNIFICANT RADIOGRAPHIC FINDING IN THE CHEST. Interventional Vascular Procedure 10/13/16 00:00 IMPRESSION: SUCCESSFUL PLACEMENT OF A 5 FR DUAL LUMEN 44 CM PICC IN THE left basilic VEIN. PICC Line Insertion 10/13/16 08:29 IMPRESSION: SUCCESSFUL PLACEMENT OF A 5 FR DUAL LUMEN 44 CM PICC IN THE left basilic VEIN. Head CT 10/13/16 09:34 IMPRESSION: NORMAL BRAIN CT WITHOUT CONTRAST. Lumbar Spine CT 10/13/16 17:37 IMPRESSION: No acute osseous finding.Scattered mildly enlarged retroperitoneal lymph nodes.No focal inflammatory changes are identified. Guidance Fluoroscopy 10/14/16 00:00 IMPRESSION: Lumbar puncture under fluoroscopy. No immediate complication. Venous Doppler Study 10/14/16 00:00 IMPRESSION: NO EVIDENCE OF DVT OR SVT IN THE RIGHT LEG. Lumbar Puncture 10/14/16 08:00 IMPRESSION: Lumbar puncture under fluoroscopy. No immediate complication. Lower Extremity CT 10/15/16 00:00 IMPRESSION: POSTOPERATIVE CHANGES FROM RECENT KNEE PROSTHESIS. DIFFUSE EDEMA IN THE SUBCUTANEOUS FATTY TISSUES OF THE LOWER LEG. NO FOCAL ABSCESS OR OTHER SIGNIFICANT ABNORMALITY. Assessment & Plan - Diagnosis (1) Sepsis Qualifiers: Sepsis type: sepsis due to unspecified organism Qualified Code(s): A41.9 - Sepsis, unspecified organism Is this a current diagnosis for this admission?: YesPlan: Secondary to septic joint. Patient has intermittent low-grade fever. White blood count normal. (2) Infection of prosthetic right knee joint Is this a current diagnosis for this admission?: YesPlan: Synovial fluid cultures growing Streptococcus species. Continue IV vancomycin and IV cefepime for improved gram-negative coverage given lack of clinical improvement. Dr. Rivera of orthopedics managing. CT scan of right lower extremity on 10/15/2016 shows no deep space fluid collection. (3) Migraine headache Qualifiers: Migraine type: unspecified Status migrainosus presence: without status migrainosus Intractability: not intractable Qualified Code(s): G43.909 - Migraine, unspecified, not intractable, without status migrainosus Is this a current diagnosis for this admission?: Yes (4) Acute blood loss as cause of postoperative anemia Is this a current diagnosis for this admission?: YesPlan: Transfused 2 units PRBC on 10/14/2016. Continue to monitor H&H for stability while restarting Xarelto for DVT prophylaxis. Continue iron supplementation. - Time Time Spent with patient: 35 or more minutes
[2016-10-16] MEDS: VANCOMYCIN HCL 1,000 MG in DEXTROSE 5%-WATER 250 ML IV SCH (22:48)
[2016-10-16] MEDS: QUETIAPINE FUMARATE 100 MG TABLET PO SCH (22:49)
[2016-10-17] MEDS: HYDROCODONE/ACETAMINOPHEN 5-325 MG TABLET PO PRN ×3 (00:35→21:04)
[2016-10-17] MEDS: NORMAL SALINE 10 ML SDV (SCHEDULED) IV SCH ×3 (03:01→21:53)
[2016-10-17] MEDS: GABAPENTIN 300 MG CAPSULE PO SCH ×3 (05:36→21:04)
[2016-10-17] MEDS: SUMATRIPTAN SUCCINATE 50 MG TABLET PO PRN (05:37)
[2016-10-17] MEDS: ONDANSETRON 4 MG TAB.RAPDIS PO PRN ×2 (05:37→18:32)
[2016-10-17] MEDS: LANSOPRAZOLE 30 MG TAB.RAP.DR PO SCH (05:37)
[2016-10-17] MEDS: VANCOMYCIN HCL 1,000 MG in DEXTROSE 5%-WATER 250 ML IV SCH ×3 (05:38→21:53)
[2016-10-17 06:23] LABS: ABSOLUTE EOSINOPHILS # (AUTO) 0.2 10^3/uL (0.0-0.6); ABSOLUTE LYMPHOCYTES (AUTO) 1.1 10^3/uL (0.5-4.7); ABSOLUTE MONOCYTES (AUTO) 0.4 10^3/uL (0.1-1.4); BASOPHILS % (AUTO) 0.7 % (0-2); EOSINOPHILS % (AUTO) 3.5 % (0-6); HEMOGLOBIN 9.7 g/dL (12.0-15.5); HGB HCT DIFFERENCE -0.9; LYMPHOCYTES % (AUTO) 18.5 % (13-45); MEAN CORPUSCULAR HEMOGLOBIN 23.5 pg (27.0-33.4); MEAN CORPUSCULAR HGB CONC 32.3 g/dL (32.0-36.0); MEAN CORPUSCULAR VOLUME 73 fl (80-97); MONOCYTES % (AUTO) 6.5 % (3-13); RED BLOOD COUNT 4.14 10^6/uL (3.72-5.28); RED CELL DISTRIBUTION WIDTH 19.5 % (11.5-14.0); SEGMENTED NEUTROPHILS % (AUTO) 70.8 % (42-78); WHITE BLOOD COUNT 5.7 10^3/uL (4.0-10.5)
--- NOTE | 2016-10-17 06:27 | PDOC PROGRESS REPORT ---
Subjective Progress Note for:: 10/17/16 Subjective:: Patient frustrated with the lack of progress Physical Exam Vital Signs: Temp Pulse Resp BP Pulse Ox 36.3 C 70 16 129/56 H 97 10/17/16 00:49 10/17/16 00:49 10/17/16 00:49 10/17/16 00:49 10/17/16 00:49 Intake & Output 10/15/16 10/16/16 10/17/16 06:59 06:59 06:59 Intake Total 2770 1523 460 Balance 2770 1523 460 General appearance: PRESENT: no acute distress Respiratory exam: PRESENT: unlabored Cardiovascular exam: PRESENT: RRR Pulses: PRESENT: +1 pedal pulses bilateral GI/Abdominal exam: PRESENT: soft Rectal exam: PRESENT: deferred Extremities exam: PRESENT: other - The patient has a clean dry watson dressing on the right knee. Distal to this. The skin is erythematous shiny and indurated. This is distinctly different than the contralateral extremity. Neurological exam: PRESENT: alert, awake, oriented to person, oriented to place , oriented to time, oriented to situation, CN II-XII grossly intact. ABSENT: motor sensory deficit Psychiatric exam: PRESENT: appropriate affect, depressed, normal mood. ABSENT: homicidal ideation, suicidal ideation Skin exam: PRESENT: dry, intact, warm. ABSENT: cyanosis, rash Results Laboratory Results: 10/17/16 05:30 10/16/16 10/16/16 10/17/16 06:00 06:00 05:30 WBC 6.8 5.7 RBC 4.02 4.14 Hgb 9.6 L 9.7 L Hct 29.1 L 30.0 L MCV 73 L 73 L MCH 23.8 L 23.5 L MCHC 32.8 32.3 RDW 19.3 H 19.5 H Plt Count 250 249 Seg Neutrophils % 70.8 Lymphocytes % 18.5 Monocytes % 6.5 Eosinophils % 3.5 Basophils % 0.7 Absolute Neutrophils 4.0 Absolute Lymphocytes 1.1 Absolute Monocytes 0.4 Absolute Eosinophils 0.2 Absolute Basophils 0.0 Sodium 144.9 Potassium 4.0 Chloride 102 Carbon Dioxide 32 H Anion Gap 11 BUN 5 L Creatinine 0.52 Est GFR ( Amer) > 60 Est GFR (Non-Af Amer) > 60 Glucose 95 Calcium 8.8 C-Reactive Protein 124.0 H Impressions: Chest X-Ray 10/10/16 00:00 IMPRESSION: NO SIGNIFICANT RADIOGRAPHIC FINDING IN THE CHEST. Interventional Vascular Procedure 10/13/16 00:00 IMPRESSION: SUCCESSFUL PLACEMENT OF A 5 FR DUAL LUMEN 44 CM PICC IN THE left basilic VEIN. PICC Line Insertion 10/13/16 08:29 IMPRESSION: SUCCESSFUL PLACEMENT OF A 5 FR DUAL LUMEN 44 CM PICC IN THE left basilic VEIN. Head CT 10/13/16 09:34 IMPRESSION: NORMAL BRAIN CT WITHOUT CONTRAST. Lumbar Spine CT 10/13/16 17:37 IMPRESSION: No acute osseous finding.Scattered mildly enlarged retroperitoneal lymph nodes.No focal inflammatory changes are identified. Guidance Fluoroscopy 10/14/16 00:00 IMPRESSION: Lumbar puncture under fluoroscopy. No immediate complication. Venous Doppler Study 10/14/16 00:00 IMPRESSION: NO EVIDENCE OF DVT OR SVT IN THE RIGHT LEG. Lumbar Puncture 10/14/16 08:00 IMPRESSION: Lumbar puncture under fluoroscopy. No immediate complication. Lower Extremity CT 10/15/16 00:00 IMPRESSION: POSTOPERATIVE CHANGES FROM RECENT KNEE PROSTHESIS. DIFFUSE EDEMA IN THE SUBCUTANEOUS FATTY TISSUES OF THE LOWER LEG. NO FOCAL ABSCESS OR OTHER SIGNIFICANT ABNORMALITY. Assessment & Plan - Diagnosis (1) Infection of prosthetic right knee joint Is this a current diagnosis for this admission?: YesPlan: Patient with little clinical evidence of progress, but her sedimentation rate has decreased from 117-93 this morning. Belinda clean dry and intact and she is ambulating. CT scan demonstrates no fluid collections in the calf. I don't think there is any role for any more intervention surgery at this point. I do think she is improving slowly and that we should continue on her current course. - Time Time Spent with patient: 15-24 minutes Anticipated discharge: Home with Homehealth
[2016-10-17 06:44] LABS: ANION GAP 12 (5-19); BLOOD UREA NITROGEN 6 mg/dL (7-20); CALCIUM 8.6 mg/dL (8.4-10.2); CARBON DIOXIDE 31 mmol/L (22-30); CHLORIDE 102 mmol/L (98-107); CREATININE RESULT 0.49 mg/dL (0.52-1.25); GLUCOSE 96 mg/dL (75-110); POTASSIUM 3.6 mmol/L (3.6-5.0); SODIUM 145.1 mmol/L (137-145)
[2016-10-17] MEDS: CEFEPIME 1 GM/D5W RTU 1 GM/50 ML RTUPB IV SCH ×2 (07:50→18:56)
[2016-10-17] MEDS ORDERED: SUMATRIPTAN SUCCINATE 100 MG TABLET PO PRN (08:15)
[2016-10-17] MEDS: FERROUS SULFATE 325 MG TABLET PO SCH ×2 (08:45→17:24)
[2016-10-17] MEDS: POLYETHYLENE GLYCOL 3350 POWDER 17 GM/1 PACKET PO SCH (09:43)
[2016-10-17] MEDS: SERTRALINE HCL 50 MG TABLET PO SCH ×2 (09:55→21:04)
[2016-10-17] MEDS: PRENATAL VITAMIN W-O CA NO5/FE FUMARATE/FA CAPSULE PO SCH (09:55)
[2016-10-17] MEDS: DOCUSATE SODIUM 100 MG CAPSULE PO SCH ×2 (09:55→17:25)
[2016-10-17] MEDS: SENNOSIDES/DOCUSATE 8.6-50 MG 1 EACH TABLET PO SCH ×2 (09:55→17:25)
[2016-10-17] MEDS: FAMOTIDINE 20 MG TABLET PO SCH ×2 (09:55→17:25)
[2016-10-17] MEDS ORDERED: RIZATRIPTAN 10 MG PO PRN (14:31)
--- NOTE | 2016-10-17 17:19 | PDOC PROGRESS REPORT ---
Subjective Progress Note for:: 10/17/16 Subjective:: No issues reported. Patient complains of chronic headaches. She has long history of migraines for which she was was to see a neurologist [place]. She has failed multiple maintenance therapies to include Depakote, Topamax, diltiazem, Botox injections. Patient denies fever, chills, new focal weakness, chest pain, shortness of breath, abdominal pain, nausea, vomiting, diarrhea, constipation. Physical Exam Vital Signs: Temp Pulse Resp BP Pulse Ox 98.4 F 66 16 142/67 H 99 10/17/16 16:00 10/17/16 16:00 10/17/16 16:00 10/17/16 16:00 10/17/16 16:00 Intake & Output 10/16/16 10/17/16 10/18/16 06:59 06:59 06:59 Intake Total 1523 460 Balance 1523 460 GENERAL: No acute distress HEENT: Conjunctiva clear, nonicteric, moist mucous membranes, no JVD, midline trachea RESPIRATORY: Clear to auscultation bilaterally, no wheezes, no rhonchi CARDIAC: Regular rate and rhythm, no murmurs/gallops/rubs ABDOMEN: Soft, nondistended, nontender, positive bowel sounds, no rebound, no guarding EXTREMETIES: No edema, cyanosis, clubbing NEUROLOGIC: Alert, oriented to person/place/time, CN's grossly intact, no focal deficits SKIN: Erythema/induration of right lower extremity distal to right knee improved over past 24 hours. Incision of her right knee intact. PSYCH: Normal mood, normal affect Results Laboratory Results: 10/17/16 05:30 10/17/16 05:30 10/17/16 10/17/16 05:30 05:30 WBC 5.7 RBC 4.14 Hgb 9.7 L Hct 30.0 L MCV 73 L MCH 23.5 L MCHC 32.3 RDW 19.5 H Plt Count 249 Seg Neutrophils % 70.8 Lymphocytes % 18.5 Monocytes % 6.5 Eosinophils % 3.5 Basophils % 0.7 Absolute Neutrophils 4.0 Absolute Lymphocytes 1.1 Absolute Monocytes 0.4 Absolute Eosinophils 0.2 Absolute Basophils 0.0 Sodium 145.1 H Potassium 3.6 Chloride 102 Carbon Dioxide 31 H Anion Gap 12 BUN 6 L Creatinine 0.49 L Est GFR ( Amer) > 60 Est GFR (Non-Af Amer) > 60 Glucose 96 Calcium 8.6 10/14/16 09:58 Cerebral Spinal Fluid - Csf Gram Stain - Final 10/14/16 09:58 Cerebral Spinal Fluid - Csf CSF Culture - Final NO GROWTH 3 DAYS Impressions: Chest X-Ray 10/10/16 00:00 IMPRESSION: NO SIGNIFICANT RADIOGRAPHIC FINDING IN THE CHEST. Interventional Vascular Procedure 10/13/16 00:00 IMPRESSION: SUCCESSFUL PLACEMENT OF A 5 FR DUAL LUMEN 44 CM PICC IN THE left basilic VEIN. PICC Line Insertion 10/13/16 08:29 IMPRESSION: SUCCESSFUL PLACEMENT OF A 5 FR DUAL LUMEN 44 CM PICC IN THE left basilic VEIN. Head CT 10/13/16 09:34 IMPRESSION: NORMAL BRAIN CT WITHOUT CONTRAST. Lumbar Spine CT 10/13/16 17:37 IMPRESSION: No acute osseous finding.Scattered mildly enlarged retroperitoneal lymph nodes.No focal inflammatory changes are identified. Guidance Fluoroscopy 10/14/16 00:00 IMPRESSION: Lumbar puncture under fluoroscopy. No immediate complication. Venous Doppler Study 10/14/16 00:00 IMPRESSION: NO EVIDENCE OF DVT OR SVT IN THE RIGHT LEG. Lumbar Puncture 10/14/16 08:00 IMPRESSION: Lumbar puncture under fluoroscopy. No immediate complication. Lower Extremity CT 10/15/16 00:00 IMPRESSION: POSTOPERATIVE CHANGES FROM RECENT KNEE PROSTHESIS. DIFFUSE EDEMA IN THE SUBCUTANEOUS FATTY TISSUES OF THE LOWER LEG. NO FOCAL ABSCESS OR OTHER SIGNIFICANT ABNORMALITY. Assessment & Plan - Diagnosis (1) Sepsis Qualifiers: Sepsis type: sepsis due to unspecified organism Qualified Code(s): A41.9 - Sepsis, unspecified organism Is this a current diagnosis for this admission?: YesPlan: Secondary to septic joint. Patient has intermittent low-grade fever. White blood count normal. (2) Infection of prosthetic right knee joint Is this a current diagnosis for this admission?: YesPlan: Synovial fluid cultures growing Streptococcus species. Continue IV vancomycin and IV cefepime. Dr. Rivera of orthopedics managing. CT scan of right lower extremity on 10/15/2016 shows no deep space fluid collection. (3) Migraine headache Qualifiers: Migraine type: unspecified Status migrainosus presence: without status migrainosus Intractability: not intractable Qualified Code(s): G43.909 - Migraine, unspecified, not intractable, without status migrainosus Is this a current diagnosis for this admission?: YesPlan: Head CT negative. Lumbar puncture negative. Maxalt 10 mg when necessary. (4) Acute blood loss as cause of postoperative anemia Is this a current diagnosis for this admission?: YesPlan: Transfused 2 units PRBC on 10/14/2016. Continue to monitor H&H for stability while restarting Xarelto for DVT prophylaxis. Continue iron supplementation. - Time Time Spent with patient: 35 or more minutes
[2016-10-17] MEDS: NORMAL SALINE 10 ML SDV (AFTER EACH USE) IV PRN ×2 (17:25→19:40)
[2016-10-17] MEDS: QUETIAPINE FUMARATE 100 MG TABLET PO SCH (21:04)
[2016-10-17] MEDS: RIVAROXABAN 10 MG TABLET PO SCH (21:53)
[2016-10-17 22:26] LABS: CREATININE RESULT 0.53 mg/dL (0.52-1.25)
[2016-10-18] MEDS: HYDROCODONE/ACETAMINOPHEN 5-325 MG TABLET PO PRN ×4 (04:38→22:46)
[2016-10-18] MEDS: ONDANSETRON 4 MG TAB.RAPDIS PO PRN ×3 (04:39→17:43)
[2016-10-18 05:06] LABS: ABSOLUTE EOSINOPHILS # (AUTO) 0.2 10^3/uL (0.0-0.6); ABSOLUTE LYMPHOCYTES (AUTO) 1.1 10^3/uL (0.5-4.7); ABSOLUTE MONOCYTES (AUTO) 0.4 10^3/uL (0.1-1.4); ABSOLUTE NEUT (AUTO) 4.7 10^3/uL (1.7-8.2); BASOPHILS % (AUTO) 0.7 % (0-2); EOSINOPHILS % (AUTO) 2.5 % (0-6); HEMATOCRIT 31.9 % (36.0-47.0); HEMOGLOBIN 10.4 g/dL (12.0-15.5); HGB HCT DIFFERENCE -0.7; LYMPHOCYTES % (AUTO) 16.9 % (13-45); MEAN CORPUSCULAR HEMOGLOBIN 23.6 pg (27.0-33.4); MEAN CORPUSCULAR HGB CONC 32.5 g/dL (32.0-36.0); MEAN CORPUSCULAR VOLUME 73 fl (80-97); MONOCYTES % (AUTO) 5.6 % (3-13); RED CELL DISTRIBUTION WIDTH 19.6 % (11.5-14.0); SEGMENTED NEUTROPHILS % (AUTO) 74.3 % (42-78); WHITE BLOOD COUNT 6.3 10^3/uL (4.0-10.5)
[2016-10-18] MEDS: VANCOMYCIN HCL 1,000 MG in DEXTROSE 5%-WATER 250 ML IV SCH ×3 (05:17→22:41)
[2016-10-18] MEDS: GABAPENTIN 300 MG CAPSULE PO SCH ×3 (05:17→22:46)
[2016-10-18] MEDS: LANSOPRAZOLE 30 MG TAB.RAP.DR PO SCH (05:17)
[2016-10-18 05:31] LABS: ANION GAP 10 (5-19); BLOOD UREA NITROGEN 7 mg/dL (7-20); CALCIUM 8.9 mg/dL (8.4-10.2); CARBON DIOXIDE 33 mmol/L (22-30); CHLORIDE 100 mmol/L (98-107); CREATININE RESULT 0.53 mg/dL (0.52-1.25); GLUCOSE 104 mg/dL (75-110); POTASSIUM 3.7 mmol/L (3.6-5.0); SODIUM 143.4 mmol/L (137-145)
[2016-10-18] MEDS: CEFEPIME 1 GM/D5W RTU 1 GM/50 ML RTUPB IV SCH ×2 (07:25→18:37)
--- NOTE | 2016-10-18 07:56 | PDOC PROGRESS REPORT ---
Subjective Progress Note for:: 10/18/16 Subjective:: Patient continues to complain of right lower extremity pain as well as headache. Physical Exam Vital Signs: Temp Pulse Resp BP Pulse Ox 36.7 C 66 19 113/46 L 96 10/17/16 23:51 10/17/16 23:51 10/17/16 23:51 10/17/16 23:51 10/17/16 23:51 Intake & Output 10/17/16 10/18/16 10/19/16 06:59 06:59 06:59 Intake Total 460 1295 Balance 460 1295 General appearance: PRESENT: no acute distress Head exam: PRESENT: normocephalic Extremities exam: PRESENT: other - I think there is a subtle improvement in her right lower extremity swelling, erythema, and tenderness. Results Laboratory Results: 10/18/16 04:45 10/18/16 04:45 10/17/16 10/18/16 10/18/16 21:45 04:45 04:45 WBC 6.3 RBC 4.40 Hgb 10.4 L Hct 31.9 L MCV 73 L MCH 23.6 L MCHC 32.5 RDW 19.6 H Plt Count 271 Seg Neutrophils % 74.3 Lymphocytes % 16.9 Monocytes % 5.6 Eosinophils % 2.5 Basophils % 0.7 Absolute Neutrophils 4.7 Absolute Lymphocytes 1.1 Absolute Monocytes 0.4 Absolute Eosinophils 0.2 Absolute Basophils 0.0 Sodium 143.4 Potassium 3.7 Chloride 100 Carbon Dioxide 33 H Anion Gap 10 BUN 7 Creatinine 0.53 0.53 Est GFR ( Amer) > 60 > 60 Est GFR (Non-Af Amer) > 60 > 60 Glucose 104 Calcium 8.9 10/14/16 09:58 Cerebral Spinal Fluid - Csf Gram Stain - Final 10/14/16 09:58 Cerebral Spinal Fluid - Csf CSF Culture - Final NO GROWTH 3 DAYS Impressions: Chest X-Ray 10/10/16 00:00 IMPRESSION: NO SIGNIFICANT RADIOGRAPHIC FINDING IN THE CHEST. Interventional Vascular Procedure 10/13/16 00:00 IMPRESSION: SUCCESSFUL PLACEMENT OF A 5 FR DUAL LUMEN 44 CM PICC IN THE left basilic VEIN. PICC Line Insertion 10/13/16 08:29 IMPRESSION: SUCCESSFUL PLACEMENT OF A 5 FR DUAL LUMEN 44 CM PICC IN THE left basilic VEIN. Head CT 10/13/16 09:34 IMPRESSION: NORMAL BRAIN CT WITHOUT CONTRAST. Lumbar Spine CT 10/13/16 17:37 IMPRESSION: No acute osseous finding.Scattered mildly enlarged retroperitoneal lymph nodes.No focal inflammatory changes are identified. Guidance Fluoroscopy 10/14/16 00:00 IMPRESSION: Lumbar puncture under fluoroscopy. No immediate complication. Venous Doppler Study 10/14/16 00:00 IMPRESSION: NO EVIDENCE OF DVT OR SVT IN THE RIGHT LEG. Lumbar Puncture 10/14/16 08:00 IMPRESSION: Lumbar puncture under fluoroscopy. No immediate complication. Lower Extremity CT 10/15/16 00:00 IMPRESSION: POSTOPERATIVE CHANGES FROM RECENT KNEE PROSTHESIS. DIFFUSE EDEMA IN THE SUBCUTANEOUS FATTY TISSUES OF THE LOWER LEG. NO FOCAL ABSCESS OR OTHER SIGNIFICANT ABNORMALITY. Assessment & Plan - Diagnosis (1) Infection of prosthetic right knee joint Is this a current diagnosis for this admission?: YesPlan: 46-year-old white female with continued improvement both in terms of her clinical presentation as well as her function with physical therapy. Anticipate potential discharge on Thursday, home health services - Time Time Spent with patient: 15-24 minutes Anticipated discharge: Home with Homehealth Within: within 48 hours
[2016-10-18] MEDS: FERROUS SULFATE 325 MG TABLET PO SCH ×2 (08:14→17:44)
[2016-10-18] MEDS: FAMOTIDINE 20 MG TABLET PO SCH ×2 (09:49→17:43)
[2016-10-18] MEDS: DOCUSATE SODIUM 100 MG CAPSULE PO SCH ×2 (09:49→17:44)
[2016-10-18] MEDS: SERTRALINE HCL 50 MG TABLET PO SCH ×2 (09:50→22:46)
[2016-10-18] MEDS: NORMAL SALINE 10 ML SDV (SCHEDULED) IV SCH ×2 (09:50→22:43)
[2016-10-18] MEDS: POLYETHYLENE GLYCOL 3350 POWDER 17 GM/1 PACKET PO SCH (09:53)
[2016-10-18] MEDS: PRENATAL VITAMIN W-O CA NO5/FE FUMARATE/FA CAPSULE PO SCH (09:53)
[2016-10-18] MEDS: SENNOSIDES/DOCUSATE 8.6-50 MG 1 EACH TABLET PO SCH ×2 (09:53→17:44)
[2016-10-18] MEDS: RIZATRIPTAN 10 MG PO PRN ×2 (11:00→13:30)
--- NOTE | 2016-10-18 14:43 | PDOC PROGRESS REPORT ---
Subjective Progress Note for:: 10/18/16 Subjective:: Patient complains of chronic headaches. Nursing states the patient acts very debilitated while she is lying in bed at times and then at other times walks the hallway with seemingly no discomfort. Patient denies fever, chills, new focal weakness, chest pain, shortness of breath, abdominal pain, nausea, vomiting, diarrhea, constipation. Physical Exam Vital Signs: Temp Pulse Resp BP Pulse Ox 97.8 F 71 16 147/73 H 100 10/18/16 12:00 10/18/16 12:00 10/18/16 12:00 10/18/16 12:00 10/18/16 12:00 Intake & Output 10/17/16 10/18/16 10/19/16 06:59 06:59 06:59 Intake Total 460 1295 Balance 460 1295 GENERAL: No acute distress HEENT: Conjunctiva clear, nonicteric, moist mucous membranes, no JVD, midline trachea RESPIRATORY: Clear to auscultation bilaterally, no wheezes, no rhonchi CARDIAC: Regular rate and rhythm, no murmurs/gallops/rubs ABDOMEN: Soft, nondistended, nontender, positive bowel sounds, no rebound, no guarding EXTREMETIES: No edema, cyanosis, clubbing NEUROLOGIC: Alert, oriented to person/place/time, CN's grossly intact, no focal deficits SKIN: Erythema/induration of right lower extremity distal to right knee improved over past 48 hours. Incision of her right knee intact. PSYCH: Normal mood, normal affect Results Laboratory Results: 10/18/16 04:45 10/18/16 04:45 10/17/16 10/18/16 10/18/16 21:45 04:45 04:45 WBC 6.3 RBC 4.40 Hgb 10.4 L Hct 31.9 L MCV 73 L MCH 23.6 L MCHC 32.5 RDW 19.6 H Plt Count 271 Seg Neutrophils % 74.3 Lymphocytes % 16.9 Monocytes % 5.6 Eosinophils % 2.5 Basophils % 0.7 Absolute Neutrophils 4.7 Absolute Lymphocytes 1.1 Absolute Monocytes 0.4 Absolute Eosinophils 0.2 Absolute Basophils 0.0 Sodium 143.4 Potassium 3.7 Chloride 100 Carbon Dioxide 33 H Anion Gap 10 BUN 7 Creatinine 0.53 0.53 Est GFR ( Amer) > 60 > 60 Est GFR (Non-Af Amer) > 60 > 60 Glucose 104 Calcium 8.9 Impressions: Chest X-Ray 10/10/16 00:00 IMPRESSION: NO SIGNIFICANT RADIOGRAPHIC FINDING IN THE CHEST. Interventional Vascular Procedure 10/13/16 00:00 IMPRESSION: SUCCESSFUL PLACEMENT OF A 5 FR DUAL LUMEN 44 CM PICC IN THE left basilic VEIN. PICC Line Insertion 10/13/16 08:29 IMPRESSION: SUCCESSFUL PLACEMENT OF A 5 FR DUAL LUMEN 44 CM PICC IN THE left basilic VEIN. Head CT 10/13/16 09:34 IMPRESSION: NORMAL BRAIN CT WITHOUT CONTRAST. Lumbar Spine CT 10/13/16 17:37 IMPRESSION: No acute osseous finding.Scattered mildly enlarged retroperitoneal lymph nodes.No focal inflammatory changes are identified. Guidance Fluoroscopy 10/14/16 00:00 IMPRESSION: Lumbar puncture under fluoroscopy. No immediate complication. Venous Doppler Study 10/14/16 00:00 IMPRESSION: NO EVIDENCE OF DVT OR SVT IN THE RIGHT LEG. Lumbar Puncture 10/14/16 08:00 IMPRESSION: Lumbar puncture under fluoroscopy. No immediate complication. Lower Extremity CT 10/15/16 00:00 IMPRESSION: POSTOPERATIVE CHANGES FROM RECENT KNEE PROSTHESIS. DIFFUSE EDEMA IN THE SUBCUTANEOUS FATTY TISSUES OF THE LOWER LEG. NO FOCAL ABSCESS OR OTHER SIGNIFICANT ABNORMALITY. Assessment & Plan - Diagnosis (1) Sepsis Qualifiers: Sepsis type: sepsis due to unspecified organism Qualified Code(s): A41.9 - Sepsis, unspecified organism Is this a current diagnosis for this admission?: YesPlan: Secondary to septic joint. Patient has intermittent low-grade fever. White blood count normal. (2) Infection of prosthetic right knee joint Is this a current diagnosis for this admission?: YesPlan: Synovial fluid cultures growing Streptococcus species. Continue IV vancomycin and IV cefepime until 11/27/2016. This will be arranged through home infusion. Patient has PICC line in place already. Dr. Rivera of orthopedics managing. CT scan of right lower extremity on 10/15/2016 shows no deep space fluid collection. I will place order for wrapper caser to arrange home health nursing, physical therapy, aide. (3) Migraine headache Qualifiers: Migraine type: unspecified Status migrainosus presence: without status migrainosus Intractability: not intractable Qualified Code(s): G43.909 - Migraine, unspecified, not intractable, without status migrainosus Is this a current diagnosis for this admission?: YesPlan: Head CT negative. Lumbar puncture negative. Maxalt 10 mg when necessary. She has long history of migraines for which she was was to see a neurologist [place]. She has failed multiple maintenance therapies to include Depakote , Topamax, diltiazem, Botox injections. (4) Acute blood loss as cause of postoperative anemia Is this a current diagnosis for this admission?: YesPlan: Transfused 2 units PRBC on 10/14/2016. Continue to monitor H&H for stability while restarting Xarelto for DVT prophylaxis. Continue iron supplementation. - Time Time Spent with patient: 25-34 minutes
[2016-10-18] MEDS: NORMAL SALINE 10 ML SDV (AFTER EACH USE) IV PRN (18:50)
[2016-10-18] MEDS: RIVAROXABAN 10 MG TABLET PO SCH (22:43)
[2016-10-18] MEDS: QUETIAPINE FUMARATE 100 MG TABLET PO SCH (22:46)
[2016-10-19] MEDS: MORPHINE SULFATE 10 MG/ML INJ IV PRN (02:30)
[2016-10-19] MEDS: HYDROCODONE/ACETAMINOPHEN 5-325 MG TABLET PO PRN ×3 (06:16→18:13)
[2016-10-19] MEDS: LANSOPRAZOLE 30 MG TAB.RAP.DR PO SCH (06:16)
[2016-10-19] MEDS: GABAPENTIN 300 MG CAPSULE PO SCH ×3 (06:16→22:15)
[2016-10-19] MEDS: CEFEPIME 1 GM/D5W RTU 1 GM/50 ML RTUPB IV SCH ×2 (06:17→18:14)
[2016-10-19] MEDS: VANCOMYCIN HCL 1,000 MG in DEXTROSE 5%-WATER 250 ML IV SCH ×3 (08:30→22:15)
[2016-10-19] MEDS: FERROUS SULFATE 325 MG TABLET PO SCH ×2 (08:46→17:34)
[2016-10-19 09:07] LABS: ABSOLUTE EOSINOPHILS # (AUTO) 0.2 10^3/uL (0.0-0.6); ABSOLUTE LYMPHOCYTES (AUTO) 1.2 10^3/uL (0.5-4.7); ABSOLUTE MONOCYTES (AUTO) 0.3 10^3/uL (0.1-1.4); ABSOLUTE NEUT (AUTO) 4.1 10^3/uL (1.7-8.2); BASOPHILS % (AUTO) 0.6 % (0-2); EOSINOPHILS % (AUTO) 2.9 % (0-6); HEMATOCRIT 32.4 % (36.0-47.0); HEMOGLOBIN 10.4 g/dL (12.0-15.5); HGB HCT DIFFERENCE -1.2; LYMPHOCYTES % (AUTO) 20.7 % (13-45); MEAN CORPUSCULAR HEMOGLOBIN 23.6 pg (27.0-33.4); MEAN CORPUSCULAR HGB CONC 32.1 g/dL (32.0-36.0); MEAN CORPUSCULAR VOLUME 74 fl (80-97); MONOCYTES % (AUTO) 5.8 % (3-13); RED BLOOD COUNT 4.41 10^6/uL (3.72-5.28); RED CELL DISTRIBUTION WIDTH 19.7 % (11.5-14.0); WHITE BLOOD COUNT 5.8 10^3/uL (4.0-10.5)
[2016-10-19 09:13] LABS: ANION GAP 7 (5-19); BLOOD UREA NITROGEN 7 mg/dL (7-20); CALCIUM 8.9 mg/dL (8.4-10.2); CARBON DIOXIDE 34 mmol/L (22-30); CHLORIDE 101 mmol/L (98-107); CREATININE RESULT 0.54 mg/dL (0.52-1.25); GLUCOSE 95 mg/dL (75-110); POTASSIUM 3.6 mmol/L (3.6-5.0); SODIUM 142.1 mmol/L (137-145)
[2016-10-19] MEDS: SERTRALINE HCL 50 MG TABLET PO SCH ×2 (09:15→22:15)
[2016-10-19] MEDS: PRENATAL VITAMIN W-O CA NO5/FE FUMARATE/FA CAPSULE PO SCH (09:15)
[2016-10-19] MEDS: ONDANSETRON 4 MG TAB.RAPDIS PO PRN ×2 (09:15→18:13)
[2016-10-19] MEDS: FAMOTIDINE 20 MG TABLET PO SCH ×2 (09:15→17:34)
[2016-10-19] MEDS: SENNOSIDES/DOCUSATE 8.6-50 MG 1 EACH TABLET PO SCH ×2 (09:17→17:34)
[2016-10-19] MEDS: POLYETHYLENE GLYCOL 3350 POWDER 17 GM/1 PACKET PO SCH (09:17)
[2016-10-19] MEDS: DOCUSATE SODIUM 100 MG CAPSULE PO SCH ×2 (09:17→17:34)
[2016-10-19] MEDS: NORMAL SALINE 10 ML SDV (SCHEDULED) IV SCH ×2 (09:17→22:15)
--- NOTE | 2016-10-19 12:42 | PDOC PROGRESS REPORT ---
Subjective Progress Note for:: 10/19/16 Subjective:: Patient complains of chronic headaches. Patient has been ambulating without difficulty. Patient denies fever, chills, new focal weakness, chest pain, shortness of breath, abdominal pain, nausea, vomiting, diarrhea, constipation. Physical Exam Vital Signs: Temp Pulse Resp BP Pulse Ox 97.4 F 63 17 149/82 H 100 10/19/16 11:13 10/19/16 11:13 10/19/16 11:13 10/19/16 11:13 10/19/16 11:13 Intake & Output 10/18/16 10/19/16 10/20/16 06:59 06:59 06:59 Intake Total 1295 1800 Balance 1295 1800 GENERAL: No acute distress HEENT: Conjunctiva clear, nonicteric, moist mucous membranes, no JVD, midline trachea RESPIRATORY: Clear to auscultation bilaterally, no wheezes, no rhonchi CARDIAC: Regular rate and rhythm, no murmurs/gallops/rubs ABDOMEN: Soft, nondistended, nontender, positive bowel sounds, no rebound, no guarding EXTREMETIES: No edema, cyanosis, clubbing NEUROLOGIC: Alert, oriented to person/place/time, CN's grossly intact, no focal deficits SKIN: Erythema/induration of right lower extremity distal to right knee improving daily. Incision of her right knee intact. PSYCH: Normal mood, normal affect Results Laboratory Results: 10/19/16 08:40 10/19/16 08:40 10/19/16 10/19/16 08:40 08:40 WBC 5.8 RBC 4.41 Hgb 10.4 L Hct 32.4 L MCV 74 L MCH 23.6 L MCHC 32.1 RDW 19.7 H Plt Count 265 Seg Neutrophils % 70.0 Lymphocytes % 20.7 Monocytes % 5.8 Eosinophils % 2.9 Basophils % 0.6 Absolute Neutrophils 4.1 Absolute Lymphocytes 1.2 Absolute Monocytes 0.3 Absolute Eosinophils 0.2 Absolute Basophils 0.0 Sodium 142.1 Potassium 3.6 Chloride 101 Carbon Dioxide 34 H Anion Gap 7 BUN 7 Creatinine 0.54 Est GFR ( Amer) > 60 Est GFR (Non-Af Amer) > 60 Glucose 95 Calcium 8.9 Impressions: Chest X-Ray 10/10/16 00:00 IMPRESSION: NO SIGNIFICANT RADIOGRAPHIC FINDING IN THE CHEST. Interventional Vascular Procedure 10/13/16 00:00 IMPRESSION: SUCCESSFUL PLACEMENT OF A 5 FR DUAL LUMEN 44 CM PICC IN THE left basilic VEIN. PICC Line Insertion 10/13/16 08:29 IMPRESSION: SUCCESSFUL PLACEMENT OF A 5 FR DUAL LUMEN 44 CM PICC IN THE left basilic VEIN. Head CT 10/13/16 09:34 IMPRESSION: NORMAL BRAIN CT WITHOUT CONTRAST. Lumbar Spine CT 10/13/16 17:37 IMPRESSION: No acute osseous finding.Scattered mildly enlarged retroperitoneal lymph nodes.No focal inflammatory changes are identified. Guidance Fluoroscopy 10/14/16 00:00 IMPRESSION: Lumbar puncture under fluoroscopy. No immediate complication. Venous Doppler Study 10/14/16 00:00 IMPRESSION: NO EVIDENCE OF DVT OR SVT IN THE RIGHT LEG. Lumbar Puncture 10/14/16 08:00 IMPRESSION: Lumbar puncture under fluoroscopy. No immediate complication. Lower Extremity CT 10/15/16 00:00 IMPRESSION: POSTOPERATIVE CHANGES FROM RECENT KNEE PROSTHESIS. DIFFUSE EDEMA IN THE SUBCUTANEOUS FATTY TISSUES OF THE LOWER LEG. NO FOCAL ABSCESS OR OTHER SIGNIFICANT ABNORMALITY. Assessment & Plan - Diagnosis (1) Sepsis Qualifiers: Sepsis type: sepsis due to unspecified organism Qualified Code(s): A41.9 - Sepsis, unspecified organism Is this a current diagnosis for this admission?: YesPlan: Secondary to septic joint. Patient has intermittent low-grade fever. White blood count normal. (2) Infection of prosthetic right knee joint Is this a current diagnosis for this admission?: YesPlan: Synovial fluid cultures growing Streptococcus species. Continue IV vancomycin and IV cefepime until 11/27/2016. This will be arranged through home infusion. Patient has PICC line in place already. Dr. Rivera of orthopedics managing. CT scan of right lower extremity on 10/15/2016 shows no deep space fluid collection. I will place order for manager case management to arrange home health nursing, physical therapy, aide. Patient is medically stable for discharge when deemed appropriate by orthopedics. Hospital medicine service probably sign off tomorrow. (3) Migraine headache Qualifiers: Migraine type: unspecified Status migrainosus presence: without status migrainosus Intractability: not intractable Qualified Code(s): G43.909 - Migraine, unspecified, not intractable, without status migrainosus Is this a current diagnosis for this admission?: YesPlan: Head CT negative. Lumbar puncture negative. Maxalt 10 mg when necessary. She has long history of migraines for which she was was to see a neurologist [place]. She has failed multiple maintenance therapies to include Depakote , Topamax, diltiazem, Botox injections. (4) Acute blood loss as cause of postoperative anemia Is this a current diagnosis for this admission?: YesPlan: Transfused 2 units PRBC on 10/14/2016. H&H remained stable. Continue iron supplementation. (5) DVT prophylaxis Is this a current diagnosis for this admission?: YesPlan: Discontinue Xarelto for as long as orthopedics deems necessary. - Time Time Spent with patient: 25-34 minutes Anticipated discharge: Home with Homehealth Within: within 24 hours
[2016-10-19] MEDS: RIVAROXABAN 10 MG TABLET PO SCH (22:15)
[2016-10-19] MEDS: QUETIAPINE FUMARATE 100 MG TABLET PO SCH (22:15)
[2016-10-20] MEDS: VANCOMYCIN HCL 1,000 MG in DEXTROSE 5%-WATER 250 ML IV SCH ×2 (06:31→15:30)
[2016-10-20] MEDS: GABAPENTIN 300 MG CAPSULE PO SCH ×2 (06:31→14:41)
[2016-10-20] MEDS: LANSOPRAZOLE 30 MG TAB.RAP.DR PO SCH (06:32)
[2016-10-20] MEDS: HYDROCODONE/ACETAMINOPHEN 5-325 MG TABLET PO PRN ×2 (06:33→14:41)
[2016-10-20] MEDS: ONDANSETRON 4 MG TAB.RAPDIS PO PRN ×2 (06:33→14:41)
[2016-10-20 06:56] LABS: ABSOLUTE EOSINOPHILS # (AUTO) 0.1 10^3/uL (0.0-0.6); ABSOLUTE LYMPHOCYTES (AUTO) 1.2 10^3/uL (0.5-4.7); ABSOLUTE MONOCYTES (AUTO) 0.3 10^3/uL (0.1-1.4); ABSOLUTE NEUT (AUTO) 4.7 10^3/uL (1.7-8.2); BASOPHILS % (AUTO) 0.5 % (0-2); HEMATOCRIT 32.5 % (36.0-47.0); HEMOGLOBIN 10.6 g/dL (12.0-15.5); HGB HCT DIFFERENCE -0.7; LYMPHOCYTES % (AUTO) 19.4 % (13-45); MEAN CORPUSCULAR HEMOGLOBIN 23.8 pg (27.0-33.4); MEAN CORPUSCULAR HGB CONC 32.8 g/dL (32.0-36.0); MEAN CORPUSCULAR VOLUME 73 fl (80-97); MONOCYTES % (AUTO) 5.2 % (3-13); RED BLOOD COUNT 4.47 10^6/uL (3.72-5.28); RED CELL DISTRIBUTION WIDTH 19.8 % (11.5-14.0); SEGMENTED NEUTROPHILS % (AUTO) 72.9 % (42-78); WHITE BLOOD COUNT 6.4 10^3/uL (4.0-10.5)
[2016-10-20 07:13] LABS: ANION GAP 7 (5-19); BLOOD UREA NITROGEN 7 mg/dL (7-20); CARBON DIOXIDE 33 mmol/L (22-30); CHLORIDE 101 mmol/L (98-107); CREATININE RESULT 0.54 mg/dL (0.52-1.25); GLUCOSE 96 mg/dL (75-110); POTASSIUM 3.9 mmol/L (3.6-5.0); SODIUM 140.7 mmol/L (137-145)
[2016-10-20] MEDS: CEFEPIME 1 GM/D5W RTU 1 GM/50 ML RTUPB IV SCH (08:07)
[2016-10-20] MEDS: SERTRALINE HCL 50 MG TABLET PO SCH (10:03)
[2016-10-20] MEDS: RIZATRIPTAN 10 MG PO PRN (10:03)
[2016-10-20] MEDS: FAMOTIDINE 20 MG TABLET PO SCH (10:03)
[2016-10-20] MEDS: PRENATAL VITAMIN W-O CA NO5/FE FUMARATE/FA CAPSULE PO SCH (10:04)
[2016-10-20] MEDS: NORMAL SALINE 10 ML SDV (SCHEDULED) IV SCH (10:06)
[2016-10-20] MEDS: FERROUS SULFATE 325 MG TABLET PO SCH (10:07)
[2016-10-20] MEDS: POLYETHYLENE GLYCOL 3350 POWDER 17 GM/1 PACKET PO SCH (10:07)
[2016-10-20] MEDS: DOCUSATE SODIUM 100 MG CAPSULE PO SCH (10:07)
[2016-10-20] MEDS: SENNOSIDES/DOCUSATE 8.6-50 MG 1 EACH TABLET PO SCH (10:07)
--- NOTE | 2016-10-20 12:40 | Progress Note ---
Provider Note Provider Note: Hospital medicine service will sign off. Recommend discharging home on 6 week course of IV vancomycin and IV cefepime. Please reconsult as needed.
[2016-10-20 16:28] VITALS: BP 133/64
--- NOTE | 2016-10-22 07:24 | PDOC DISCHARGE SUMMARY ---
General - Admit/Disc Date/PCP Admission Date/Primary Care Provider: 10/10/16 12:48 ERICKA WILSON MD Discharge Date: 10/20/16 - Discharge Diagnosis (1) Infection of prosthetic right knee joint Is this a current diagnosis for this admission?: Yes - Additional Information Resuscitation Status: Full Code Discharge Activity: Activity As Tolerated, Balance Activity w/Rest, Slowly Increase Activity Home Medications: Dexlansoprazole [Dexilant 60 mg Capsule] 60 mg PO DAILY 11/19/15 Ranitidine HCl [Zantac 150 mg Tablet] 150 mg PO BID #30 tablet 12/03/15 Quetiapine Fumarate [Seroquel 100 mg Tablet] 100 mg PO QHS 10/10/16 Rizatriptan Benzoate [Rizatriptan] 10 mg PO Q2HP PRN MDD 20 MG 10/10/16 Sertraline HCl [Zoloft 50 mg Tablet] 50 mg PO QHS 10/10/16 Sertraline HCl [Zoloft] 200 mg PO DAILY 10/10/16 Verapamil HCl [Verapamil ER] 240 mg PO BID 10/10/16 History of Present Illness History of Present Illness: Patient's a 46-year-old white female, approximate 9 months status post right knee arthroplasty who presents emergency room with increased redness, pain and inability to weight-bear and the operative extremity. Aspiration of the knee demonstrates a streptococcal infection. She is admitted to the orthopedic service for appropriate therapy. Hospital Course Hospital Course: A she undergoes an IND of the right knee and was returned to floor in satisfactory condition. She's plagued with postoperative headaches which predated her admission. The Hospital services is consulted. Lumbar puncture was performed and this is negative. The patient continues to have intermittent febrile episodes is some erythema swelling and tenderness of the right lower extremity below the knee. He makes excellent progress with physical therapy in terms of regaining ambulation. Right knee dressing remains clean dry and intact.. Physical Exam Vital Signs: Temp Pulse Resp BP Pulse Ox 36.9 C 64 14 133/64 H 93 10/20/16 16:24 10/20/16 16:24 10/20/16 16:24 10/20/16 16:24 10/20/16 16:24 Intake & Output 10/21/16 10/22/16 10/23/16 06:59 06:59 06:59 Intake Total 1552 Balance 1552 General appearance: PRESENT: mild distress Head exam: PRESENT: normocephalic Respiratory exam: PRESENT: unlabored Cardiovascular exam: PRESENT: RRR Pulses: PRESENT: +1 pedal pulses bilateral Vascular exam: PRESENT: normal capillary refill GI/Abdominal exam: PRESENT: soft Rectal exam: PRESENT: deferred Extremities exam: PRESENT: other - Right knee watson dressing is clean dry and intact. Below the watson dressing. The lower leg continues to be erythematous, shiny, indurated, and tender. Neurological exam: PRESENT: alert, awake, oriented to person, oriented to place , oriented to time, oriented to situation. ABSENT: motor sensory deficit Psychiatric exam: PRESENT: appropriate affect, depressed. ABSENT: homicidal ideation, suicidal ideation Skin exam: PRESENT: erythema, intact, warm Results Laboratory Results: 10/20/16 06:25 10/20/16 06:25 Impressions: Chest X-Ray 10/10/16 00:00 IMPRESSION: NO SIGNIFICANT RADIOGRAPHIC FINDING IN THE CHEST. Interventional Vascular Procedure 10/13/16 00:00 IMPRESSION: SUCCESSFUL PLACEMENT OF A 5 FR DUAL LUMEN 44 CM PICC IN THE left basilic VEIN. PICC Line Insertion 10/13/16 08:29 IMPRESSION: SUCCESSFUL PLACEMENT OF A 5 FR DUAL LUMEN 44 CM PICC IN THE left basilic VEIN. Head CT 10/13/16 09:34 IMPRESSION: NORMAL BRAIN CT WITHOUT CONTRAST. Lumbar Spine CT 10/13/16 17:37 IMPRESSION: No acute osseous finding.Scattered mildly enlarged retroperitoneal lymph nodes.No focal inflammatory changes are identified. Guidance Fluoroscopy 10/14/16 00:00 IMPRESSION: Lumbar puncture under fluoroscopy. No immediate complication. Venous Doppler Study 10/14/16 00:00 IMPRESSION: NO EVIDENCE OF DVT OR SVT IN THE RIGHT LEG. Lumbar Puncture 10/14/16 08:00 IMPRESSION: Lumbar puncture under fluoroscopy. No immediate complication. Lower Extremity CT 10/15/16 00:00 IMPRESSION: POSTOPERATIVE CHANGES FROM RECENT KNEE PROSTHESIS. DIFFUSE EDEMA IN THE SUBCUTANEOUS FATTY TISSUES OF THE LOWER LEG. NO FOCAL ABSCESS OR OTHER SIGNIFICANT ABNORMALITY. Status: Imported from PACS Qualifiers PATEINT BEING DISCHARGED WITH ANY OF THE FOLLOWING DIAGNOSIS?: No VTE patient discharged on overlapping Therapy?: Yes Plan Discharge Plan: Sent to be discharged on 6 weeks of IV antibiotic therapy. Watson dressing can be changed on postop day #7 by the visiting nurse service. Patient can return to see Dr. Rivera in the [facility] for surgery approximately 2 weeks.
== END 2016-10-20 18:07 | disposition home health service (06) | DRG 486 ==
LOC: ER 22:20 → UNDOADMIN 10-10 01:45 → EH 10-10 01:45 → 4N 10-10 04:10 → EH 10-10 04:10 → 4N 10-10 04:52 → EH 10-10 04:52 → INTOOBSV 10-10 04:52 → OBSVTOIN 10-10 12:48
PROVIDERS: ADMIT Orthopaedic Surgery; ATTEND Orthopaedic Surgery
PROC: 0SUV09Z Supplement Right Knee Joint, Tibial Surface with Liner, Open Approach (ICD-10-PCS; 2016-10-10)
PROC: 0S9C3ZX Drainage of Right Knee Joint, Percutaneous Approach, Diagnostic (ICD-10-PCS; 2016-10-10)
PROC: 0S9C3ZX Drainage of Right Knee Joint, Percutaneous Approach, Diagnostic (ICD-10-PCS; 2016-10-10)
PROC: 0SPC09Z Removal of Liner from Right Knee Joint, Open Approach (ICD-10-PCS; principal; 2016-10-10 11:15)
PROC: 02HV33Z Insertion of Infusion Device into Superior Vena Cava, Percutaneous Approach (ICD-10-PCS; 2016-10-13)
PROC: B5181ZA Fluoroscopy of Superior Vena Cava using Low Osmolar Contrast, Guidance (ICD-10-PCS; 2016-10-13)
PROC: B548ZZA Ultrasonography of Superior Vena Cava, Guidance (ICD-10-PCS; 2016-10-13)
PROC: 009U3ZX Drainage of Spinal Canal, Percutaneous Approach, Diagnostic (ICD-10-PCS; 2016-10-14)
PROC: 30233N1 Transfusion of Nonautologous Red Blood Cells into Peripheral Vein, Percutaneous Approach (ICD-10-PCS; 2016-10-14)
DX: T84.53XA Infection and inflammatory reaction due to internal right knee prosthesis, initial encounter (principal); D62 Acute posthemorrhagic anemia; B95.0 Streptococcus, group A, as the cause of diseases classified elsewhere; G43.909 Migraine, unspecified, not intractable, without status migrainosus; K21.9 Gastro-esophageal reflux disease without esophagitis; Z79.899 Other long term (current) drug therapy; Z96.652 Presence of left artificial knee joint; Z90.710 Acquired absence of both cervix and uterus; Z88.8 Allergy status to other drugs, medicaments and biological substances
CPT/HCPCS: 01402; 36415; 36430; 36569; 62270; 70450; 71020; 72132; 76937; 77001; 77003; 80048; 80202; 82565; 82607; 82728; 82746; 82945; 83540; 83550; 83605; 84157; 85025; 85027; 85610; 85652; 86060; 86140; 86403; 86850; 86900; 86901; 86920; 87070; 87075; 87077; 87186; 87205; 87880; 89050; 93005; 93010; 93971; 94799; 99284; C9290; G0378; J0131; J0330; J0692; J0696; J1100; J1200; J1642; J1741; J2250; J2270; J2405; J2540; J2704; J2765; J3010; J3370; J3490; J7030; J7050; J7060; J7120; P9016; S0119

== ENCOUNTER → 2016-10-09 | Outpatient (CLI) | payer MEDICAID ==
[2016-10-09 11:21] LABS: ABSOLUTE LYMPHOCYTES (AUTO) 1.1 10^3/uL (0.5-4.7); ABSOLUTE MONOCYTES (AUTO) 0.4 10^3/uL (0.1-1.4); BASOPHILS % (AUTO) 0.3 % (0-2); EOSINOPHILS % (AUTO) 0.2 % (0-6); HEMOGLOBIN 9.7 g/dL (12.0-15.5); HGB HCT DIFFERENCE -0.9; MEAN CORPUSCULAR HEMOGLOBIN 22.1 pg (27.0-33.4); MEAN CORPUSCULAR HGB CONC 32.4 g/dL (32.0-36.0); MEAN CORPUSCULAR VOLUME 68 fl (80-97); MONOCYTES % (AUTO) 4.3 % (3-13); RED BLOOD COUNT 4.39 10^6/uL (3.72-5.28); RED CELL DISTRIBUTION WIDTH 17.5 % (11.5-14.0); SEGMENTED NEUTROPHILS % (AUTO) 85.2 % (42-78); WHITE BLOOD COUNT 10.5 10^3/uL (4.0-10.5)
[2016-10-09 11:47] LABS: ANION GAP 14 (5-19); BLOOD UREA NITROGEN 14 mg/dL (7-20); C-REACTIVE PROTEIN 46.7 mg/L (<10.0); CALCIUM 9.1 mg/dL (8.4-10.2); CARBON DIOXIDE 25 mmol/L (22-30); CHLORIDE 102 mmol/L (98-107); CREATININE RESULT 0.69 mg/dL (0.52-1.25); GLUCOSE 101 mg/dL (75-110); POTASSIUM 4.1 mmol/L (3.6-5.0); SODIUM 140.6 mmol/L (137-145)
[2016-10-09 12:05] LABS: ERYTHROCYTE SEDIMENTATION RATE 60 mm/hr (0-20)
== END ==
LOC: OD 10:12
PROVIDERS: ATTEND Orthopaedic Surgery
DX: T84.53XA Infection and inflammatory reaction due to internal right knee prosthesis, initial encounter (principal)
CPT/HCPCS: 36415; 80048; 85025; 85652; 86140

== ENCOUNTER 2016-11-08 15:46 | Emergency (ER) | payer MEDICAID ==
[2016-11-08] MEDS ORDERED: KETOROLAC TROMETHAMINE INJ/PF 30 MG/1 ML SDV IV ONE (16:00)
[2016-11-08] MEDS ORDERED: DIPHENHYDRAMINE HCL 50 MG/ML VIAL IV ONE ×2 (16:00→18:28)
[2016-11-08] MEDS ORDERED: NORMAL SALINE 1000 ML 1,000 ML IV PRN (16:00)
[2016-11-08] MEDS ORDERED: METOCLOPRAMIDE HCL INJ/PF 10 MG/2 ML SDV IV ONE (16:00)
--- NOTE | 2016-11-08 16:01 | ER Document Report ---
ED Headache - General Chief Complaint: Headache Stated Complaint: HEADACHE Time Seen by Provider: 11/08/16 15:52 Mode of Arrival: Wheelchair Information source: Patient TRAVEL OUTSIDE OF THE [place] IN LAST 30 DAYS: No - Related Data Allergies/Adverse Reactions: codeine [Codeine] Allergy (Intermediate, Verified 11/08/16 15:49) itching, dysphagia oxycodone Allergy (Verified 11/08/16 15:49) urticaria, hives prochlorperazine edisylate [From Compazine] Adverse Reaction (Intermediate, Verified 11/08/16 15:49) tardive dyskinesia Past Medical History - Social History Smoking Status: Never Smoker Chew tobacco use (# tins/day): No Frequency of alcohol use: None Drug Abuse: None Family History: Hypertension, Other - Dementia Patient has suicidal ideation: No Patient has homicidal ideation: No - Past Medical History Cardiac Medical History: Reports: Hx Heart Murmur - denies SBE prophylaxis Denies: Hx Atrial Fibrillation, Hx Congestive Heart Failure, Hx Heart Attack , Hx Hypercholesterolemia, Hx Hypertension Pulmonary Medical History: Reports: Hx Bronchitis Denies: Hx Asthma, Hx COPD, Hx Pneumonia, Hx Tuberculosis Neurological Medical History: Reports: Hx Migraine. Denies: Hx Seizures Renal/ Medical History: Denies: Hx End Stage Renal Disease, Hx Kidney Stones, Hx Peritoneal Dialysis Malignancy Medical History: Denies: Hx Leukemia GI Medical History: Reports: Hx Gastroesophageal Reflux Disease - meds x 6 months. Denies: Hx Hiatal Hernia, Hx Ulcer Musculoskeltal Medical History: Reports Hx Arthritis Psychiatric Medical History: Reports: Hx Bipolar Disorder, Hx Depression - meds x 21 years Denies: Hx Schizophrenia Traumatic Medical History: Reports: Hx Fractures - LT wrist, cast application only, 11 years ago Infectious Medical History: Denies: Hx HIV Past Surgical History: Reports: Hx Hysterectomy, Hx Orthopedic Surgery - Left total knee arthroplasty 01/22/2015. Right knee arthroplasty November 2015. Denies : Hx Appendectomy, Hx Bowel Surgery, Hx Section, Hx Cholecystectomy, Hx Mastectomy, Hx Tonsillectomy, Hx Tubal Ligation - Immunizations Hx Diphtheria, Pertussis, Tetanus Vaccination: No Physical Exam - Vital signs Vitals: Temp Pulse Resp BP Pulse Ox 98.3 F 73 16 151/86 H 99 11/08/16 15:49 11/08/16 15:49 11/08/16 15:49 11/08/16 15:49 11/08/16 15:49 Course - Vital Signs Vital signs: Temp Pulse Resp BP Pulse Ox 98.3 F 73 16 151/86 H 99 11/08/16 15:49 11/08/16 15:49 11/08/16 15:49 11/08/16 15:49 11/08/16 15:49
--- NOTE | 2016-11-08 17:41 | ER Document Report ---
ED Medical Screen (RME) - General Chief Complaint: Headache Stated Complaint: HEADACHE Time Seen by Provider: 11/08/16 15:52 Mode of Arrival: Ambulatory Information source: Patient TRAVEL OUTSIDE OF THE [place] IN LAST 30 DAYS: No - HPI Patient complains to provider of: Migraine headache, nausea Onset: Yesterday Onset/Duration: Persistent Quality of pain: Fullness, Pressure Severity: Moderate Pain Level: 3 Associated Symptoms: Nausea Notes: 11/08/16 17:41 Patient is a 46-year-old female who presents to the emergency room complaining of migraine headache since yesterday evening associated with nausea, has a history of migraine headaches in the past - Related Data Allergies/Adverse Reactions: codeine [Codeine] Allergy (Intermediate, Verified 11/08/16 15:49) itching, dysphagia oxycodone Allergy (Verified 11/08/16 15:49) urticaria, hives prochlorperazine edisylate [From Compazine] Adverse Reaction (Intermediate, Verified 11/08/16 15:49) tardive dyskinesia Past Medical History - Social History Chew tobacco use (# tins/day): No Frequency of alcohol use: None Drug Abuse: None - Past Medical History Cardiac Medical History: Reports: Hx Heart Murmur - denies SBE prophylaxis Denies: Hx Atrial Fibrillation, Hx Congestive Heart Failure, Hx Heart Attack , Hx Hypercholesterolemia, Hx Hypertension Pulmonary Medical History: Reports: Hx Bronchitis Denies: Hx Asthma, Hx COPD, Hx Pneumonia, Hx Tuberculosis Neurological Medical History: Reports: Hx Migraine. Denies: Hx Seizures Renal/ Medical History: Denies: Hx End Stage Renal Disease, Hx Kidney Stones, Hx Peritoneal Dialysis Malignancy Medical History: Denies: Hx Leukemia GI Medical History: Reports: Hx Gastroesophageal Reflux Disease - meds x 6 months. Denies: Hx Hiatal Hernia, Hx Ulcer Musculoskeltal Medical History: Reports Hx Arthritis Psychiatric Medical History: Reports: Hx Bipolar Disorder, Hx Depression - meds x 21 years Denies: Hx Schizophrenia Traumatic Medical History: Reports: Hx Fractures - LT wrist, cast application only, 11 years ago Infectious Medical History: Denies: Hx HIV Past Surgical History: Reports: Hx Hysterectomy, Hx Orthopedic Surgery - Left total knee arthroplasty 01/22/2015. Right knee arthroplasty November 2015. Denies : Hx Appendectomy, Hx Bowel Surgery, Hx Section, Hx Cholecystectomy, Hx Mastectomy, Hx Tonsillectomy, Hx Tubal Ligation - Immunizations Hx Diphtheria, Pertussis, Tetanus Vaccination: No Physical Exam - Vital signs Vitals: Temp Pulse Resp BP Pulse Ox 98.3 F 73 16 151/86 H 99 11/08/16 15:49 11/08/16 15:49 11/08/16 15:49 11/08/16 15:49 11/08/16 15:49 Course - Vital Signs Vital signs: Temp Pulse Resp BP Pulse Ox 98.3 F 73 16 151/86 H 99 11/08/16 15:49 11/08/16 15:49 11/08/16 15:49 11/08/16 15:49 11/08/16 15:49
[2016-11-08] MEDS ORDERED: HALOPERIDOL LACTATE INJ 5 MG/1 ML VIAL IV ONE (18:27)
[2016-11-08] MEDS ORDERED: DEXAMETHASONE SOD PHOS INJ 10 MG/1 ML VIAL IV ONE (18:27)
--- NOTE | 2016-11-08 18:28 | ER Document Report ---
ED General - General Chief Complaint: Headache Stated Complaint: HEADACHE Time Seen by Provider: 11/08/16 15:52 Mode of Arrival: Ambulatory Notes: Patient is a 46-year-old female with a past medical history of a migraine headache who presents on of her typical migraine headaches. Describes it as a dull, constant, aching pain over the right side of her head. It is worsened by light and sound. States the headache was gradual in onset and became progressively worse. She denies any associated weakness, numbness, altered mental status or fever. Nothing is new or different about her headache today other than that she cannot get it to go away with her typical measures at home. She has not seen her primary care physician regarding today's concerns. TRAVEL OUTSIDE OF THE [place] IN LAST 30 DAYS: No - Related Data Allergies/Adverse Reactions: codeine [Codeine] Allergy (Intermediate, Verified 11/08/16 15:49) itching, dysphagia oxycodone Allergy (Verified 11/08/16 15:49) urticaria, hives prochlorperazine edisylate [From Compazine] Adverse Reaction (Intermediate, Verified 11/08/16 15:49) tardive dyskinesia Past Medical History - General Information source: Patient - Social History Smoking Status: Never Smoker Chew tobacco use (# tins/day): No Frequency of alcohol use: None Drug Abuse: None Lives with: Spouse/Significant other Family History: Hypertension, Other - Dementia Patient has suicidal ideation: No Patient has homicidal ideation: No - Past Medical History Cardiac Medical History: Reports: Hx Heart Murmur - denies SBE prophylaxis Denies: Hx Atrial Fibrillation, Hx Congestive Heart Failure, Hx Heart Attack , Hx Hypercholesterolemia, Hx Hypertension Pulmonary Medical History: Reports: Hx Bronchitis Denies: Hx Asthma, Hx COPD, Hx Pneumonia, Hx Tuberculosis Neurological Medical History: Reports: Hx Migraine. Denies: Hx Seizures Renal/ Medical History: Denies: Hx End Stage Renal Disease, Hx Kidney Stones, Hx Peritoneal Dialysis Malignancy Medical History: Denies: Hx Leukemia GI Medical History: Reports: Hx Gastroesophageal Reflux Disease - meds x 6 months. Denies: Hx Hiatal Hernia, Hx Ulcer Musculoskeltal Medical History: Reports Hx Arthritis Psychiatric Medical History: Reports: Hx Bipolar Disorder, Hx Depression - meds x 21 years Denies: Hx Schizophrenia Traumatic Medical History: Reports: Hx Fractures - LT wrist, cast application only, 11 years ago Infectious Medical History: Denies: Hx HIV Past Surgical History: Reports: Hx Hysterectomy, Hx Orthopedic Surgery - Left total knee arthroplasty 01/22/2015. Right knee arthroplasty November 2015. Denies : Hx Appendectomy, Hx Bowel Surgery, Hx Section, Hx Cholecystectomy, Hx Mastectomy, Hx Tonsillectomy, Hx Tubal Ligation - Immunizations Hx Diphtheria, Pertussis, Tetanus Vaccination: No Review of Systems - Review of Systems Notes: Constitutional: Negative for fever. HENT: Negative for sore throat. Eyes: Negative for visual changes. Cardiovascular: Negative for chest pain. Respiratory: Negative for shortness of breath. Gastrointestinal: Negative for abdominal pain, vomiting or diarrhea. Genitourinary: Negative for dysuria. Musculoskeletal: Negative for back pain. Skin: Negative for rash. Neurological: Positive for headaches, negative for weakness or numbness. 10 point ROS negative except as marked above and in HPI. Physical Exam - Vital signs Vitals: Temp Pulse Resp BP Pulse Ox 98.3 F 73 16 151/86 H 99 11/08/16 15:49 11/08/16 15:49 11/08/16 15:49 11/08/16 15:49 11/08/16 15:49 Interpretation: Hypertensive Notes: PHYSICAL EXAMINATION: GENERAL: Appears mildly uncomfortable but in no acute distress HEAD: Atraumatic, normocephalic. EYES: Pupils equal round and reactive to light, extraocular movements intact, sclera anicteric, conjunctiva are normal. ENT: nares patent, oropharynx clear without exudates. Moist mucous membranes. NECK: Normal range of motion, supple without lymphadenopathy LUNGS: Breath sounds clear to auscultation bilaterally and equal. No wheezes rales or rhonchi. HEART: Regular rate and rhythm without murmurs ABDOMEN: Soft, nontender, normoactive bowel sounds. No guarding, no rebound. No masses appreciated. EXTREMITIES: Normal range of motion, no pitting or edema. No cyanosis. NEUROLOGICAL: Face symmetric. Tongue protrudes midline. Extraocular motions intact. Pupils are 2 mm and equally reactive. Normal speech, normal gait. 5 out of 5 strength in both the distal and proximal upper and lower extremities bilaterally. Sensation is grossly intact throughout. Finger to nose testing normal. Pronator drift normal. PSYCH: Normal mood, normal affect. SKIN: Warm, Dry, normal turgor, no rashes or lesions noted. Course - Re-evaluation Re-evalutation: 11/08/16 18:28 Presentation of a headache that appears to be most consistent with tension versus migrainous type headache. Headache was not maximal in onset, patient has no focal neurologic deficits, no nuchal rigidity, vital signs within normal limits, no papilledema, and patient is overall well in appearance. Based on clinical history and examination I do not suspect an acute subarachnoid hemorrhage, dural venous sinus thrombosis, acute meningitis, or intercranial mass. Given my low clinical suspicion for any acute life-threatening etiology, I do not feel advanced neuro imaging or laboratory testing is indicated at this time. Will proceed with headache cocktail and reassess. 11/08/16 19:25 Patient has had resolution of her headache at this time. She remains without any focal neurologic deficit. At this time will discharge with return precautions and follow-up recommendations. Verbal discharge instructions given a the bedside and opportunity for questions given. Medication warnings reviewed. Patient is in agreement with this plan and has verbalized understanding of return precautions and the need for primary care follow-up in the next 24-72 hours. - Vital Signs Vital signs: Temp Pulse Resp BP Pulse Ox 98.3 F 65 18 149/76 H 98 11/08/16 15:49 11/08/16 17:40 11/08/16 17:40 11/08/16 17:40 11/08/16 17:40 Discharge - Discharge Clinical Impression: Migraine headache Condition: Good Disposition: HOME, SELF-CARE Additional Instructions: You were seen today for a migraine headache. Please follow-up with your primary care doctor regarding today's ED visit. Return to emergency department immediately if you develop a headache that gets to its maximum severity within 20 minutes of onset, you pass out, you develop weakness, numbness, changes in your vision, become unable to keep any fluids down for more than 12 hours, or develop a fever greater than 100.4 degrees Fahrenheit. If you develop a similar migraine headache in the future I recommend that you immediately take 600 mg of ibuprofen and 50 mg of Benadryl and go to sleep as quickly as possible. This can often prevent your migraine headache from becoming severe. Referrals: ERICKA WILSON MD [Primary Care Provider] - Follow up in 3-5 days
[2016-11-08] MEDS ORDERED: NORMAL SALINE 10 ML SDV (AFTER EACH USE) IV PRN (20:32)
[2016-11-08 20:51] VITALS: BP 138/72
[2016-11-08] MEDS ORDERED: NORMAL SALINE 10 ML SDV (SCHEDULED) IV SCH (22:00)
== END 2016-11-08 20:48 | disposition home or self-care (01) ==
LOC: ER 15:46
DX: G43.909 Migraine, unspecified, not intractable, without status migrainosus (principal); Z88.6 Allergy status to analgesic agent; Z90.710 Acquired absence of both cervix and uterus
CPT/HCPCS: 96376; 99284; 96361; 96374; 96375; J1200; J1630; J1885; J2765; J3490; J7030; J1100; J1642

== ENCOUNTER 2016-11-19 21:10 | Emergency (ER) | payer MEDICAID ==
[2016-11-19 21:52] LABS: APPEARANCE,URINE CLOUDY; BILIRUBIN,URINE NEGATIVE (NEGATIVE); GLUCOSE, URINE NEGATIVE (NEGATIVE); KETONES,URINE NEGATIVE (NEGATIVE); LEUKOCYTE ESTERASE,URINE MODERATE (NEGATIVE); NITRITE,URINE NEGATIVE (NEGATIVE); PROTEIN,URINE 100 mg/dL (NEGATIVE); URINE SPECIFIC GRAVITY 1.031; UROBILINOGEN,URINE NEGATIVE mg/dL (<2.0)
[2016-11-19 21:54] LABS: ABSOLUTE EOSINOPHILS # (AUTO) 0.1 10^3/uL (0.0-0.6); ABSOLUTE LYMPHOCYTES (AUTO) 1.1 10^3/uL (0.5-4.7); ABSOLUTE MONOCYTES (AUTO) 0.3 10^3/uL (0.1-1.4); ABSOLUTE NEUT (AUTO) 1.7 10^3/uL (1.7-8.2); BASOPHILS % (AUTO) 0.6 % (0-2); EOSINOPHILS % (AUTO) 2.9 % (0-6); HEMATOCRIT 34.2 % (36.0-47.0); HEMOGLOBIN 11.3 g/dL (12.0-15.5); HGB HCT DIFFERENCE -0.3; LYMPHOCYTES % (AUTO) 34.5 % (13-45); MEAN CORPUSCULAR HEMOGLOBIN 24.7 pg (27.0-33.4); MEAN CORPUSCULAR HGB CONC 33.1 g/dL (32.0-36.0); MEAN CORPUSCULAR VOLUME 75 fl (80-97); MONOCYTES % (AUTO) 8.5 % (3-13); RED BLOOD COUNT 4.58 10^6/uL (3.72-5.28); RED CELL DISTRIBUTION WIDTH 20.9 % (11.5-14.0); SEGMENTED NEUTROPHILS % (AUTO) 53.5 % (42-78); WHITE BLOOD COUNT 3.2 10^3/uL (4.0-10.5)
[2016-11-19 22:06] LABS: ALANINE AMINOTRANSFERASE 36 U/L (9-52); ALBUMIN 4.3 g/dL (3.5-5.0); ALKALINE PHOSPHATASE 99 U/L (38-126); ANION GAP 12 (5-19); ASPARTATE AMINO TRANSFERASE 35 U/L (14-36); BILIRUBIN,DIRECT 0.3 mg/dL (0.0-0.4); BILIRUBIN,TOTAL 0.6 mg/dL (0.2-1.3); BLOOD UREA NITROGEN 11 mg/dL (7-20); CALCIUM 9.9 mg/dL (8.4-10.2); CARBON DIOXIDE 27 mmol/L (22-30); CHLORIDE 106 mmol/L (98-107); CREATININE RESULT 0.69 mg/dL (0.52-1.25); GLUCOSE 113 mg/dL (75-110); SODIUM 145.3 mmol/L (137-145); TOTAL PROTEIN 7.5 g/dL (6.3-8.2)
[2016-11-19 22:12] LABS: POTASSIUM 2.9 mmol/L (3.6-5.0)
[2016-11-19 22:16] LABS: ANISOCYTOSIS 2+; MICROCYTOSIS 1+; OVALOCYTES 1+; TOXIC GRANULATION SLIGHT
--- NOTE | 2016-11-19 22:52 | ER Document Report ---
ED General - General Chief Complaint: Fever Stated Complaint: FEVER Time Seen by Provider: 11/19/16 22:03 Mode of Arrival: Ambulatory Information source: Patient TRAVEL OUTSIDE OF THE [place] IN LAST 30 DAYS: No - HPI Notes: Patient is a 46-year-old female with history of an infected right knee prosthesis currently on vancomycin and cefepime by way of a PICC line which was placed in early October comes in with report that over the last 3 days she has noticed some increasing stiffness to the right knee and reports having a fever in the evening up to 101.7, which she states is new. The patient reports also having difficulty drawing blood back from her left upper extremity PICC line and states she has pain at the insertion site when there are attempting a fusion of her regular vancomycin and cefepime. Patient had an original right knee arthroplasty performed 11 months ago approximately, had incision and drainage performed 6 weeks ago that grew strep B. She denies any leg or arm swelling. She reports no chest pain or difficulty breathing she denies any cough or congestion she reports no nausea vomiting or numbness or paresthesia. - Related Data Allergies/Adverse Reactions: codeine [Codeine] Allergy (Intermediate, Verified 11/08/16 15:49) itching, dysphagia oxycodone Allergy (Verified 11/08/16 15:49) urticaria, hives prochlorperazine edisylate [From Compazine] Adverse Reaction (Intermediate, Verified 11/08/16 15:49) tardive dyskinesia Past Medical History - General Information source: Patient - Social History Smoking Status: Never Smoker Frequency of alcohol use: None Drug Abuse: None Lives with: Alone Family History: Hypertension, Other - Dementia Patient has suicidal ideation: No Patient has homicidal ideation: No - Past Medical History Cardiac Medical History: Reports: Hx Heart Murmur - denies SBE prophylaxis Denies: Hx Atrial Fibrillation, Hx Congestive Heart Failure, Hx Heart Attack , Hx Hypercholesterolemia, Hx Hypertension Pulmonary Medical History: Reports: Hx Bronchitis Denies: Hx Asthma, Hx COPD, Hx Pneumonia, Hx Tuberculosis Neurological Medical History: Reports: Hx Migraine. Denies: Hx Seizures Renal/ Medical History: Denies: Hx End Stage Renal Disease, Hx Kidney Stones, Hx Peritoneal Dialysis Malignancy Medical History: Denies: Hx Leukemia GI Medical History: Reports: Hx Gastroesophageal Reflux Disease - meds x 6 months. Denies: Hx Hiatal Hernia, Hx Ulcer Musculoskeltal Medical History: Reports Hx Arthritis Psychiatric Medical History: Reports: Hx Bipolar Disorder, Hx Depression - meds x 21 years Denies: Hx Schizophrenia Traumatic Medical History: Reports: Hx Fractures - LT wrist, cast application only, 11 years ago Infectious Medical History: Denies: Hx HIV Past Surgical History: Reports: Hx Hysterectomy, Hx Orthopedic Surgery - Left total knee arthroplasty 01/22/2015. Right knee arthroplasty November 2015. Denies : Hx Appendectomy, Hx Bowel Surgery, Hx Section, Hx Cholecystectomy, Hx Mastectomy, Hx Tonsillectomy, Hx Tubal Ligation - Immunizations Hx Diphtheria, Pertussis, Tetanus Vaccination: No Review of Systems - Review of Systems Notes: REVIEW OF SYSTEMS: CONSTITUTIONAL : Denies sweats. Denies recent illness. EENT: Denies eye, ear, throat, or mouth pain or symptoms. Denies nasal or sinus congestion or discharge. Denies throat, tongue, or mouth swelling or difficulty swallowing. CARDIOVASCULAR: Denies chest pain. Denies palpitations or racing or irregular heart beat. Denies ankle edema. RESPIRATORY: Denies cough, cold, or chest congestion. Denies shortness of breath, difficulty breathing, or wheezing. GASTROINTESTINAL: Denies abdominal pain or distention. Denies nausea, vomiting , or diarrhea. Denies blood in vomitus, stools, or per rectum. Denies black, tarry stools. Denies constipation. GENITOURINARY: Denies difficulty urinating, painful urination, burning, frequency, blood in urine, or discharge. FEMALE GENITOURINARY: Denies vaginal bleeding, heavy or abnormal periods, irregular periods. Denies vaginal discharge or odor. MUSCULOSKELETAL: Denies back or neck pain or stiffness. Patient reports right knee pain with ambulation, but no significant change in her mild chronic swelling since her previous surgery. SKIN: Denies rash, lesions or sores. Patient reports mild redness surrounding the PICC line insertion site, but no drainage. HEMATOLOGIC : Denies easy bruising or bleeding. LYMPHATIC: Denies swollen, enlarged glands. NEUROLOGICAL: Denies confusion or altered mental status. Denies passing out or loss of consciousness. Denies dizziness or lightheadedness. Denies headache. Denies weakness or paralysis or loss of use of either side. Denies problems with gait or speech. Denies sensory loss, numbness, or tingling. Denies seizures. PSYCHIATRIC: Denies anxiety or stress. Denies depression, suicidal ideation, or homicidal ideation. ALL OTHER SYSTEMS REVIEWED AND NEGATIVE. Dictation was performed using [employer] voice recognition software Physical Exam - Vital signs Vitals: Temp Pulse Resp BP Pulse Ox 97.9 F 79 18 147/69 H 94 11/19/16 21:23 11/19/16 21:23 11/19/16 21:23 11/19/16 21:23 11/19/16 21:23 - Notes Notes: PHYSICAL EXAMINATION: GENERAL: Well-appearing, well-nourished and in no acute distress. HEAD: Atraumatic, normocephalic. EYES: Pupils equal round and reactive to light, extraocular movements intact, conjunctiva are normal. ENT: Nares patent, oropharynx clear without exudates. Moist mucous membranes. NECK: Normal range of motion, supple without lymphadenopathy LUNGS: Breath sounds clear to auscultation bilaterally and equal. No wheezes rales or rhonchi. HEART: Regular rate and rhythm without murmurs ABDOMEN: Soft, nontender, nondistended abdomen. No guarding, no rebound. No masses appreciated. Female : deferred Musculoskeletal: no pitting or edema. No cyanosis. Patient has pain with the extremes of flexion with the right knee with postsurgical changes, but no obvious gross effusion or cellulitis. Distally she is neurovascularly intact. No proximal erythema or adenopathy. NEUROLOGICAL: Cranial nerves grossly intact. Normal speech, normal gait. Normal sensory, motor exams PSYCH: Normal mood, normal affect. SKIN: Warm, Dry, normal turgor, no rashes noted. Patient has mild erythema surrounding the left upper extremity PICC line insertion site along the medial upper arm. There is no discharge from the area no obvious cellulitis or gross abscess. Distally she is neurovascularly intact. There is no palpable cord noted or suggestion for DVT. There is mild epidermal exfoliation of the right lower extremity, which patient states is chronic. Course - Re-evaluation Re-evalutation: 11/19/16 22:58 Blood cultures taken. Patient denied wanting anything for pain. - Vital Signs Vital signs: Temp Pulse Resp BP Pulse Ox 97.9 F 79 18 147/69 H 94 11/19/16 21:23 11/19/16 21:23 11/19/16 21:23 11/19/16 21:23 11/19/16 21:23 - Laboratory Result Diagrams: 11/19/16 21:30 11/19/16 21:30 Laboratory results interpreted by me: 11/19/16 11/19/16 11/19/16 21:30 21:30 21:30 WBC 3.2 L Hgb 11.3 L Hct 34.2 L MCV 75 L MCH 24.7 L RDW 20.9 H Sodium 145.3 H Potassium 2.9 L* Glucose 113 H Urine Protein 100 H Ur Leukocyte Esterase MODERATE H
[2016-11-19] MEDS ORDERED: POTASSIUM CHLORIDE 10 MEQ TABLET.SA PO ONE (23:06)
--- NOTE | 2016-11-19 23:10 | RADIOLOGY REPORT (SQ) ---
EXAM DESCRIPTION: KNEE RIGHT 4 VIEWS COMPLETED DATE/TIME: 11/19/2016 10:59 pm REASON FOR STUDY: right knee pain, previous recent infected joint COMPARISON: None. NUMBER OF VIEWS: Four views. TECHNIQUE: AP, lateral, and both oblique radiographic images acquired of the right knee. LIMITATIONS: None. FINDINGS: MINERALIZATION: Normal. BONES: Total knee arthroplasty hardware appears in expected position. No acute fracture or dislocati on. No worrisome bone lesions. JOINT: Trace effusion. SOFT TISSUES: No soft tissue swelling. No radio-opaque foreign body. OTHER: No other significant finding. IMPRESSION: No fracture. TECHNICAL DOCUMENTATION: JOB ID: [id number] [employer]- All Rights Reserved
--- NOTE | 2016-11-19 23:11 | RADIOLOGY REPORT (SQ) ---
EXAM DESCRIPTION: CHEST PA/LAT COMPLETED DATE/TIME: 11/19/2016 10:59 pm REASON FOR STUDY: Nonfunctioning PICC line position COMPARISON: 10/10/2016 EXAM PARAMETERS: NUMBER OF VIEWS: two views TECHNIQUE: Digital Frontal and Lateral radiographic views of the chest acquired. RADIATION DOSE: NA LIMITATIONS: none FINDINGS: LUNGS AND PLEURA: No acute opacities, masses or pneumothorax. No pleural effusion. MEDIASTINUM AND HILAR STRUCTURES: Stable. HEART AND VASCULAR STRUCTURES: Stable. BONES: No acute findings. HARDWARE: Left-sided PICC line catheter tip overlies the region of the SVC slightly below the level o f the luz maria. OTHER: No other significant finding. IMPRESSION: Left-sided PICC line catheter tip overlies the region of the SVC slightly below the leve l of the luz maria. No acute cardiopulmonary finding. TECHNICAL DOCUMENTATION: JOB ID: [id number] [employer]- All Rights Reserved
[2016-11-20 02:01] VITALS: BP 129/76
== END 2016-11-20 01:50 | disposition home or self-care (01) ==
LOC: ER 21:10
DX: T82.898A Other specified complication of vascular prosthetic devices, implants and grafts, initial encounter (principal); Y83.8 Other surgical procedures as the cause of abnormal reaction of the patient, or of later complication, without mention of misadventure at the time of the procedure; T84.53XA Infection and inflammatory reaction due to internal right knee prosthesis, initial encounter; Y79.2 Prosthetic and other implants, materials and accessory orthopedic devices associated with adverse incidents; R50.9 Fever, unspecified; E87.6 Hypokalemia; Z88.5 Allergy status to narcotic agent; Z96.653 Presence of artificial knee joint, bilateral
CPT/HCPCS: 36415; 71020; 80053; 81001; 85025; 86140; 87040; 87086; 99283

== ENCOUNTER 2017-03-27 17:31 | Emergency (ER) | payer MEDICAID ==
--- NOTE | 2017-03-27 18:27 | EKG REPORT ---
SEVERITY:- NORMAL ECG - SINUS RHYTHM : Confirmed by: Dk Carrasquillo MD 27-Mar-2017 18:27:06
[2017-03-27] MEDS ORDERED: ASPIRIN 81 MG TABLET, CHEWABLE PO ONE (20:06)
--- NOTE | 2017-03-27 20:08 | ER Document Report ---
ED Medical Screen (RME) - General Chief Complaint: Chest Pain Stated Complaint: CHEST PAIN, NUMBNESS RIGHT ARM, BACK PAIN Time Seen by Provider: 03/27/17 19:53 Notes: Patient is a 46 year old female who presents to the ED complaining of left chest wall pain that started 3 days ago and she had two episodes today. States she was at the store checking out when she had an episode of sharp chest pain radiating into her left arm lasting < 10 minutes. PMH; denies HTN, HLD, DM, CAD, nonsmoker TRAVEL OUTSIDE OF THE [place] IN LAST 30 DAYS: No - Related Data Allergies/Adverse Reactions: codeine [Codeine] Allergy (Intermediate, Verified 03/27/17 17:42) itching, dysphagia oxycodone Allergy (Verified 03/27/17 17:42) urticaria, hives prochlorperazine edisylate [From Compazine] Adverse Reaction (Intermediate, Verified 03/27/17 17:42) tardive dyskinesia Past Medical History - Social History Chew tobacco use (# tins/day): No Frequency of alcohol use: None Drug Abuse: None - Past Medical History Cardiac Medical History: Reports: Hx Heart Murmur - denies SBE prophylaxis Denies: Hx Atrial Fibrillation, Hx Congestive Heart Failure, Hx Heart Attack , Hx Hypercholesterolemia, Hx Hypertension Pulmonary Medical History: Reports: Hx Bronchitis Denies: Hx Asthma, Hx COPD, Hx Pneumonia, Hx Tuberculosis Neurological Medical History: Reports: Hx Migraine. Denies: Hx Seizures Renal/ Medical History: Denies: Hx End Stage Renal Disease, Hx Kidney Stones, Hx Peritoneal Dialysis Malignancy Medical History: Denies: Hx Leukemia GI Medical History: Reports: Hx Gastroesophageal Reflux Disease - meds x 6 months. Denies: Hx Hiatal Hernia, Hx Pancreatitis, Hx Ulcer Musculoskeltal Medical History: Reports Hx Arthritis Psychiatric Medical History: Reports: Hx Bipolar Disorder, Hx Depression - meds x 21 years Denies: Hx Schizophrenia Traumatic Medical History: Reports: Hx Fractures - LT wrist, cast application only, 11 years ago Infectious Medical History: Denies: Hx HIV Past Surgical History: Reports: Hx Hysterectomy, Hx Orthopedic Surgery - Left total knee arthroplasty 01/22/2015. Right knee arthroplasty November 2015. Denies : Hx Appendectomy, Hx Bowel Surgery, Hx Section, Hx Cholecystectomy, Hx Mastectomy, Hx Tonsillectomy, Hx Tubal Ligation - Immunizations Hx Diphtheria, Pertussis, Tetanus Vaccination: No History of Influenza Vaccine for 03/2017 - 08/2017 Season: No Physical Exam - Vital signs Vitals: Temp Pulse Resp BP Pulse Ox 98.1 F 79 16 136/76 H 99 03/27/17 17:42 03/27/17 17:42 03/27/17 17:42 03/27/17 17:42 03/27/17 17:42 - General General appearance: Appears well, Alert In distress: None - Respiratory Respiratory status: No respiratory distress Chest status: Nontender Breath sounds: Normal Chest palpation: Normal - Cardiovascular Rhythm: Regular Heart sounds: Normal auscultation, S1 appreciated, S2 appreciated Gallop: None auscultated Pulses: Normal: Radial Course - Vital Signs Vital signs: Temp Pulse Resp BP Pulse Ox 98.1 F 79 16 136/76 H 99 03/27/17 17:42 03/27/17 17:42 03/27/17 17:42 03/27/17 17:42 03/27/17 17:42
--- NOTE | 2017-03-27 20:56 | RADIOLOGY REPORT (SQ) ---
EXAM DESCRIPTION: CHEST PA/LAT COMPLETED DATE/TIME: 03/27/2017 8:43 pm REASON FOR STUDY: chest pain for 3 days COMPARISON: 11/19/2016 EXAM PARAMETERS: NUMBER OF VIEWS: two views TECHNIQUE: Digital Frontal and Lateral radiographic views of the chest acquired. RADIATION DOSE: NA LIMITATIONS: none FINDINGS: LUNGS AND PLEURA: Stable chronic lung change without new opacities, masses or pneumothorax . No pleural effusion. MEDIASTINUM AND HILAR STRUCTURES: No masses or contour abnormalities. HEART AND VASCULAR STRUCTURES: Heart stable size. No evidence for failure. BONES: No acute findings. HARDWARE: None in the chest. OTHER: No other significant finding. IMPRESSION: NO ACUTE CARDIOPULMONARY PROCESS. NO SIGNIFICANT CHANGE FROM PRIOR STUDY. TECHNICAL DOCUMENTATION: JOB ID: [id number] [employer]- All Rights Reserved
[2017-03-27 20:57] LABS: ABSOLUTE EOSINOPHILS # (AUTO) 0.1 10^3/uL (0.0-0.6); ABSOLUTE LYMPHOCYTES (AUTO) 1.6 10^3/uL (0.5-4.7); ABSOLUTE MONOCYTES (AUTO) 0.4 10^3/uL (0.1-1.4); ABSOLUTE NEUT (AUTO) 5.1 10^3/uL (1.7-8.2); BASOPHILS % (AUTO) 0.3 % (0-2); HEMATOCRIT 34.2 % (36.0-47.0); HEMOGLOBIN 11.9 g/dL (12.0-15.5); HGB HCT DIFFERENCE 1.5; LYMPHOCYTES % (AUTO) 22.6 % (13-45); MEAN CORPUSCULAR HEMOGLOBIN 27.2 pg (27.0-33.4); MEAN CORPUSCULAR HGB CONC 34.8 g/dL (32.0-36.0); MEAN CORPUSCULAR VOLUME 78 fl (80-97); MONOCYTES % (AUTO) 5.2 % (3-13); RED BLOOD COUNT 4.37 10^6/uL (3.72-5.28); RED CELL DISTRIBUTION WIDTH 13.4 % (11.5-14.0); SEGMENTED NEUTROPHILS % (AUTO) 69.9 % (42-78); WHITE BLOOD COUNT 7.2 10^3/uL (4.0-10.5)
[2017-03-27 21:13] LABS: ALANINE AMINOTRANSFERASE 32 U/L (9-52); ALBUMIN 4.3 g/dL (3.5-5.0); ALKALINE PHOSPHATASE 107 U/L (38-126); ANION GAP 11 (5-19); ASPARTATE AMINO TRANSFERASE 23 U/L (14-36); BILIRUBIN,DIRECT 0.3 mg/dL (0.0-0.4); BILIRUBIN,TOTAL 0.4 mg/dL (0.2-1.3); BLOOD UREA NITROGEN 12 mg/dL (7-20); CALCIUM 9.5 mg/dL (8.4-10.2); CARBON DIOXIDE 28 mmol/L (22-30); CHLORIDE 105 mmol/L (98-107); CREATININE RESULT 0.68 mg/dL (0.52-1.25); GLUCOSE 115 mg/dL (75-110); SODIUM 144.1 mmol/L (137-145)
--- NOTE | 2017-03-27 22:33 | ER Document Report ---
ED General - General Chief Complaint: Chest Pain Stated Complaint: CHEST PAIN, NUMBNESS RIGHT ARM, BACK PAIN Time Seen by Provider: 03/27/17 19:53 Notes: Patient is a 46-year-old female presents with complaint of chest pain. She says she has had 2 episodes of very sharp quick chest pain her left parasternal area. She also has some upper back pain. She says that she has chronic low back pain and over last several days she has had pain shooting from her low back into her upper back. She denies any weakness into her legs. She has had little bit numbness into her right arm. She denies history of coronary disease. She has no history of diabetes, smoking, high cholesterol, or hypertension. She does have a family history of coronary disease. Her father had a heart attack at the age of 54. She says currently she feels well. TRAVEL OUTSIDE OF THE [place] IN LAST 30 DAYS: No - Related Data Allergies/Adverse Reactions: codeine [Codeine] Allergy (Intermediate, Verified 03/27/17 17:42) itching, dysphagia oxycodone Allergy (Verified 03/27/17 17:42) urticaria, hives prochlorperazine edisylate [From Compazine] Adverse Reaction (Intermediate, Verified 03/27/17 17:42) tardive dyskinesia Past Medical History - Social History Smoking Status: Never Smoker Chew tobacco use (# tins/day): No Frequency of alcohol use: None Drug Abuse: None Family History: Hypertension, Other - Dementia Patient has suicidal ideation: No Patient has homicidal ideation: No - Past Medical History Cardiac Medical History: Reports: Hx Heart Murmur - denies SBE prophylaxis Denies: Hx Atrial Fibrillation, Hx Congestive Heart Failure, Hx Heart Attack , Hx Hypercholesterolemia, Hx Hypertension Pulmonary Medical History: Reports: Hx Bronchitis Denies: Hx Asthma, Hx COPD, Hx Pneumonia, Hx Tuberculosis Neurological Medical History: Reports: Hx Migraine. Denies: Hx Seizures Renal/ Medical History: Denies: Hx End Stage Renal Disease, Hx Kidney Stones, Hx Peritoneal Dialysis Malignancy Medical History: Denies: Hx Leukemia GI Medical History: Reports: Hx Gastroesophageal Reflux Disease - meds x 6 months. Denies: Hx Hiatal Hernia, Hx Pancreatitis, Hx Ulcer Musculoskeltal Medical History: Reports Hx Arthritis Psychiatric Medical History: Reports: Hx Bipolar Disorder, Hx Depression - meds x 21 years Denies: Hx Schizophrenia Traumatic Medical History: Reports: Hx Fractures - LT wrist, cast application only, 11 years ago Infectious Medical History: Denies: Hx HIV Past Surgical History: Reports: Hx Hysterectomy, Hx Orthopedic Surgery - Left total knee arthroplasty 01/22/2015. Right knee arthroplasty November 2015. Denies : Hx Appendectomy, Hx Bowel Surgery, Hx Section, Hx Cholecystectomy, Hx Mastectomy, Hx Tonsillectomy, Hx Tubal Ligation - Immunizations Hx Diphtheria, Pertussis, Tetanus Vaccination: No Review of Systems - Review of Systems Notes: My Normal Review Basic REVIEW OF SYSTEMS: CONSTITUTIONAL : Denies fever, chills, or sweats. Denies recent illness. EENT: Denies eye, ear, throat, or mouth pain or symptoms. Denies nasal or sinus congestion. CARDIOVASCULAR: Had chest pain RESPIRATORY: Denies cough, cold, or chest congestion. Denies shortness of breath, difficulty breathing, or wheezing. GASTROINTESTINAL: Denies abdominal pain. Denies nausea, vomiting, or diarrhea. Denies constipation. Last BM: MUSCULOSKELETAL: Some back pain SKIN: Denies rash or skin lesions. NEUROLOGICAL: Denies altered mental status or loss of consciousness. Denies headache. Denies weakness or paralysis or loss of use of either side. Denies problems with gait or speech. Denies sensory or motor loss. ALL OTHER SYSTEMS REVIEWED AND NEGATIVE. Physical Exam - Vital signs Vitals: Temp Pulse Resp BP Pulse Ox 98.1 F 79 16 136/76 H 99 03/27/17 17:42 03/27/17 17:42 03/27/17 17:42 03/27/17 17:42 03/27/17 17:42 - Notes Notes: General Appearance: Well nourished, alert, cooperative, no acute distress, no obvious discomfort. Vitals: reviewed, See vital signs table. Head: no swelling or tenderness to the head Eyes: PERRL, EOMI, Conjuctiva clear Mouth: No decreasd moisture Chest wall: Tenderness to palpation over the left anterior chest wall. Patient has a pinpoint area just parasternal on the left side that when I gently pressed she has severe sharp pain and says it feels just like pain she had earlier in the day. Lungs: No wheezing, No rales, No rhonci, No accessory muscle use, good air exchange bilaterally. Heart: Normal rate, Regular rythm, No murmur, no rub Back: Patient is very tender left rib ankle over the posterior thoracic area. It is approximately rib angle #10. No rashes Abdomen: Normal BS, soft, No rigidity, No abdominal tenderness, No guarding, no rebound, no abdominal masses, no organomegaly Extremities: strength 5/5 in all extremities, good pulses in all extremities, no swelling or tenderness in the extremities, no edema. Skin: warm, dry, appropriate color, no rash Neuro: speech clear, oriented x 3, normal affect, responds appropriately to questions. Course - Re-evaluation Re-evalutation: 03/28/17 00:52 Patient's troponin and repeat troponin are completely negative. Her pain is reproducible palpation. Heart score is 2. I feel she is safe to be discharged home for outpatient follow-up. She looks very well. I explained to her the plan to follow-up with outpatient cardiology for potential outpatient stress test and evaluation. Encouraged to return to ER immediately if she has worsening recurrent chest pain, difficulty breathing, or feels unwell. Patient agrees with plan will be discharged home. Dictation of this chart was performed using voice recognition software; therefore, there may be some unintended grammatical errors. - Vital Signs Vital signs: Temp Pulse Resp BP Pulse Ox 98.1 F 79 21 H 119/63 98 03/27/17 17:42 03/27/17 17:42 03/27/17 23:01 03/27/17 23:01 03/27/17 23:01 - Laboratory Result Diagrams: 03/27/17 20:30 03/27/17 20:30 Laboratory results interpreted by me: 03/27/17 03/27/17 20:30 20:30 Hgb 11.9 L Hct 34.2 L MCV 78 L Glucose 115 H - EKG Interpretation by Me Additional EKG results interpreted by me: 03/27/17 22:33 EKG is reviewed and interpreted by me. EKG shows normal sinus rhythm with a rate of [address] segment elevation or depression. No ischemic T-wave inversions. MI interval, QRS duration, QTc intervals are within normal range. Old EKG for comparison is from October 10, 2016. 03/28/17 00:52 EKG #2 is reviewed and interpreted by me. EKG shows normal sinus rhythm with rate of [address] segment elevation or depression. No ischemic T-wave inversions. MI interval, QRS duration, QTc intervals are within normal range. No old EKG available for comparison. Discharge - Discharge Clinical Impression: Chest pain Qualifiers: Chest pain type: unspecified Qualified Code(s): R07.9 - Chest pain, unspecified Condition: Good Disposition: HOME, SELF-CARE Additional Instructions: CHEST PAIN OF UNCLEAR CAUSE: The exact cause of your chest pain isn't clear. Fortunately, there is no evidence of a dangerous medical condition. Further testing may be required to find the source of the pain. Most often, we find that this pain is coming from the chest wall -- the muscles or rib joints in the chest. But chest pain can come from the lung and lung lining, the esophagus, the heart valves or heart lining, and even the stomach or gallbladder. Rest. Eat lightly until the pain is gone. We may prescribe medicine for pain and inflammation. You should call the physician immediately if the pain radiates to the shoulder, jaw or arms; if you start to run a fever or develop a cough; or if you develop shortness of breath, or other new or alarming symptoms. NORMAL EXAM AND WORKUP: At this time, your examination and workup show no significant abnormality. No significant abnormal physical findings were noted. All laboratory, EKG, and imaging (x-ray, CT scans, ultrasound) studies that were ordered show no significant abnormality. Although your examination and all studies that were ordered showed no significant abnormal finding, there are no examinations and no studies that are 100% accurate. There is always the possibility that some abnormality could exist and not be detected with physical examination or within the limits and capabilities of laboratory and other studies. You should return or follow up as you were instructed on your visit today for further evaluation if your symptoms do not resolve. CHEST WALL PAIN: Your chest pain may be coming from the chest wall. This is often caused by straining the muscles or joints in the chest during physical activity, direct trauma, coughing, or vigorous vomiting. Persons with arthritis are especially prone to this type of pain, due to inflammation of the cartilage joints near the breast bone. Occasionally, no cause can be found. Rest from strenuous physical activity. This kind of chest pain is usually made worse by movement of the chest. Depending on the symptoms, we may prescribe medicine for pain, muscle relaxation, and antiinflammatory effects. If the pain is new, and seems to be due to muscle strain, cold packs can help. Otherwise, apply gentle warmth to the painful area for 15 minutes every hour or two. You should call contact the doctor immediately if things change. Further evaluation is needed if you develop a fever or cough, if the nature of the pain changes, or if you become short of breath. FOLLOW-UP CARE: If you have been referred to a physician for follow-up care, call the physician s office for an appointment as you were instructed or within the next two days. If you experience worsening or a significant change in your symptoms, notify the physician immediately or return to the Emergency Department at any time for re-evaluation. Please take a daily 81mg aspirin. Please follow up with your doctor or the quality lab technician (Dr. Conde) for reevaluation and possible outpatient stress test. Please return to [facility] ER immediately if you have worsening pain, difficulty breathing, or feel unwell. Referrals: ERICKA WILSON MD [Primary Care Provider] - Follow up in 3-5 days SEAMUS CONDE MD [ACTIVE STAFF] - Follow up in 3-5 days
[2017-03-27 23:07] VITALS: BP 119/63
--- NOTE | 2017-03-28 07:51 | EKG REPORT ---
SEVERITY:- NORMAL ECG - SINUS RHYTHM : Confirmed by: Dk Carrasquillo MD 28-Mar-2017 07:50:25
== END 2017-03-28 01:20 | disposition home or self-care (01) ==
LOC: ER 17:31
DX: R07.9 Chest pain, unspecified (principal); R20.0 Anesthesia of skin; G89.29 Other chronic pain; M54.5 Low back pain; Z88.6 Allergy status to analgesic agent; Z90.710 Acquired absence of both cervix and uterus
CPT/HCPCS: 36415; 71020; 80053; 84484; 85025; 93005; 93010; 99285

== ENCOUNTER → 2017-08-20 | Outpatient (CLI) | payer MEDICAID ==
--- NOTE | 2017-08-20 11:54 | WOMENS IMAGING REPORT ---
EXAM DESCRIPTION: RIGHT DIAGNOSTIC MAMMO W/CAD COMPLETED DATE/TIME: 08/20/2017 11:21 am REASON FOR STUDY: OTHER ABNORMAL AND INCONCLUSIVE FINDINGS R92.8 OTH ABN AND INCONCLUSIVE FINDINGS ON DX IMAGING OF TETE COMPARISON: 07/20/2017. TECHNIQUE: Standard craniocaudal and mediolateral oblique images of the breast recorded with digital acquisition. LIMITATIONS: None. FINDINGS: BREAST: right MASSES: Mass in the retroareolar breast. Biopsy clip present within the mass. CALCIFICATIONS: No new or suspicious calcifications. ARCHITECTURAL DISTORTION: None. DEVELOPING DENSITY: None. ASYMMETRY: None noted. OTHER: No other significant findings. Read with the assistance of CAD. .[facility] - R2 Cenova Version 1.3 .[facility] - R2 Cenova Version 1.3 .[facility] - R2 Cenova Version 2.4 .[facility] - R2 Cenova Version 2.4 .[facility] - R2 Snipper Version 9.2 IMPRESSION: Biopsy clip is present within the subareolar mass. Pathology pending. BREAST DENSITY: b. There are scattered areas of fibroglandular density. BIRAD: 0 Incomplete: Pathology pending. RECOMMENDATION: RECOMMENDED FOLLOW UP: Pathology pending. Follow-up to be determined by pathology r esults. COMMENT: The patient has been notified of the results by letter per SA requirements. Additional no tification policies are in place for contacting patient with suspicious or incomplete findings. Quality ID #[id number]: The [employer] recommends an annual screening mammogram for women aged 40 years or over. This facility utilizes a reminder system to ensure that all patients receive reminder letters, and/or direct phone calls for appointments. This includes reminders for routine scr eening mammograms, diagnostic mammograms, or other Breast Imaging Interventions when appropriate. Th is patient will be placed in the appropriate reminder system. The [employer] (ACR) has developed recommendations for screening MRI of the breast s in certain patient populations, to be used in conjunction with mammography. Breast MRI surveillanc e may be appropriate for women with more than 20% lifetime risk of developing breast cancer as deter mined by genetic testing, significant family history of the disease, or history of mantle radiation f or Hodgkins Disease. ACR Practice Guidelines 2008. TECHNICAL DOCUMENTATION: FINDING NUMBER: (1) ASSESSMENT: (1) JOB ID: [id number] [employer]- All Rights Reserved Reading location - IP/workstation name: [facility]
== END ==
LOC: WI 10:46
PROVIDERS: ATTEND Surgery
DX: R92.8 Other abnormal and inconclusive findings on diagnostic imaging of breast (principal)

== ENCOUNTER 2017-08-23 20:20 | Emergency (ER) | payer MEDICAID ==
[2017-08-23] MEDS ORDERED: SULFAMETHOXAZOLE/TRIMETHOPRIM 800-160 MG TABLET PO ONE (22:19)
--- NOTE | 2017-08-23 22:19 | ER Document Report ---
ED General - General Chief Complaint: Leg Pain Stated Complaint: RIGHT LEG PAIN, SWELLING Time Seen by Provider: 08/23/17 22:18 Mode of Arrival: Ambulatory Information source: Patient Notes: 46-year-old female history of cellulitis of the right lower extremity resents with complaints of redness on the anterior aspect of the right leg started earlier today. Patient denies any fevers or chills she denies any DVT or PE risk factors patient states that the pain is minimal but that there has been drainage coming from the anterior aspect similar to her previous cellulitis. Patient notes she is on daily Keflex TRAVEL OUTSIDE OF THE [place] IN LAST 30 DAYS: No - HPI Onset: This morning Onset/Duration: Sudden Quality of pain: Sharp Severity: Mild Pain Level: 1 Associated symptoms: Leg swelling Exacerbated by: Denies Relieved by: Denies Similar symptoms previously: Yes Recently seen / treated by doctor: Yes - Related Data Allergies/Adverse Reactions: codeine [Codeine] Allergy (Intermediate, Verified 03/27/17 17:42) itching, dysphagia oxycodone Allergy (Verified 03/27/17 17:42) urticaria, hives prochlorperazine edisylate [From Compazine] Adverse Reaction (Intermediate, Verified 03/27/17 17:42) tardive dyskinesia Past Medical History - Social History Smoking Status: Never Smoker Cigarette use (# per day): No Chew tobacco use (# tins/day): No Smoking Education Provided: No Family History: Hypertension, Other - Dementia - Past Medical History Cardiac Medical History: Reports: Hx Heart Murmur - denies SBE prophylaxis Denies: Hx Atrial Fibrillation, Hx Congestive Heart Failure, Hx Heart Attack , Hx Hypercholesterolemia, Hx Hypertension Pulmonary Medical History: Reports: Hx Bronchitis Denies: Hx Asthma, Hx COPD, Hx Pneumonia, Hx Tuberculosis Neurological Medical History: Reports: Hx Migraine. Denies: Hx Seizures Renal/ Medical History: Denies: Hx End Stage Renal Disease, Hx Kidney Stones, Hx Peritoneal Dialysis Malignancy Medical History: Denies: Hx Leukemia GI Medical History: Reports: Hx Gastroesophageal Reflux Disease - meds x 6 months. Denies: Hx Hiatal Hernia, Hx Pancreatitis, Hx Ulcer Musculoskeltal Medical History: Reports Hx Arthritis Psychiatric Medical History: Reports: Hx Bipolar Disorder, Hx Depression - meds x 21 years Denies: Hx Schizophrenia Traumatic Medical History: Reports: Hx Fractures - LT wrist, cast application only, 11 years ago Infectious Medical History: Denies: Hx HIV Past Surgical History: Reports: Hx Hysterectomy, Hx Orthopedic Surgery - Left total knee arthroplasty 01/22/2015. Right knee arthroplasty November 2015. Denies : Hx Appendectomy, Hx Bowel Surgery, Hx Section, Hx Cholecystectomy, Hx Mastectomy, Hx Tonsillectomy, Hx Tubal Ligation - Immunizations Hx Diphtheria, Pertussis, Tetanus Vaccination: No Review of Systems - Review of Systems Notes: REVIEW OF SYSTEMS: CONSTITUTIONAL : Denies fever, chills, or sweats. Denies recent illness. EENT: Denies eye, ear, throat, or mouth pain or symptoms. Denies nasal or sinus congestion or discharge. Denies throat, tongue, or mouth swelling or difficulty swallowing. CARDIOVASCULAR: Denies chest pain. Denies palpitations or racing or irregular heart beat. Denies ankle edema. RESPIRATORY: Denies cough, cold, or chest congestion. Denies shortness of breath, difficulty breathing, or wheezing. GASTROINTESTINAL: Denies abdominal pain or distention. Denies nausea, vomiting , or diarrhea. Denies blood in vomitus, stools, or per rectum. Denies black, tarry stools. Denies constipation. GENITOURINARY: Denies difficulty urinating, painful urination, burning, frequency, blood in urine, or discharge. FEMALE GENITOURINARY: Denies vaginal bleeding, heavy or abnormal periods, irregular periods. Denies vaginal discharge or odor. MUSCULOSKELETAL: Admits to right lower leg swelling SKIN: Admits to redness of the anterior carson HEMATOLOGIC : Denies easy bruising or bleeding. LYMPHATIC: Denies swollen, enlarged glands. NEUROLOGICAL: Denies confusion or altered mental status. Denies passing out or loss of consciousness. Denies dizziness or lightheadedness. Denies headache. Denies weakness or paralysis or loss of use of either side. Denies problems with gait or speech. Denies sensory loss, numbness, or tingling. Denies seizures. PSYCHIATRIC: Denies anxiety or stress. Denies depression, suicidal ideation, or homicidal ideation. ALL OTHER SYSTEMS REVIEWED AND NEGATIVE. PHYSICAL EXAMINATION: GENERAL: Well-appearing, well-nourished and in no acute distress. HEAD: Atraumatic, normocephalic. EYES: Pupils equal round and reactive to light, extraocular movements intact, conjunctiva are normal. ENT: Nares patent, oropharynx clear without exudates. Moist mucous membranes. NECK: Normal range of motion, supple without lymphadenopathy LUNGS: Breath sounds clear to auscultation bilaterally and equal. No wheezes rales or rhonchi. HEART: Regular rate and rhythm without murmurs ABDOMEN: Soft, nontender, nondistended abdomen. No guarding, no rebound. No masses appreciated. Female : deferred Musculoskeletal: Edema of the right anterior carson with 2 areas of superficial ulceration with clear drainage NEUROLOGICAL: Cranial nerves grossly intact. Normal speech, normal gait. Normal sensory, motor exams PSYCH: Normal mood, normal affect. SKIN: Warm, Dry, normal turgor, no rashes or lesions noted. Dictation was performed using [employer] voice recognition software Physical Exam - Vital signs Vitals: Temp Pulse Resp BP Pulse Ox 97.5 F 81 18 154/64 H 100 08/23/17 21:27 08/23/17 21:27 08/23/17 21:27 08/23/17 21:27 08/23/17 21:27 Course - Re-evaluation Re-evalutation: 08/24/17 00:51 Patient's examination is most consistent with cellulitis, she has no calf tenderness no DVT or PE risk factors the symptoms are all related to the anterior portion of the carson. Therefore I will place the patient on Bactrim and she is currently on Keflex already been given very strict return precautions we discussed DVTs Patient states she understands and will return if symptoms worsen or if there are any other concerns including calf pain After performing a Medical Screening Examination, I estimate there is LOW risk for OPEN FRACTURE, COMPARTMENT SYNDROME, TENDON RUPTURE, ACUTE NEUROVASCULAR INJURY, or RETAINED FOREIGN BODY, thus I consider the discharge disposition reasonable. Also, there is no evidence or peritonitis, sepsis, or toxicity. I have reevaluated this patient multiple times and no significant life threatening changes are noted. The patient and I have discussed the diagnosis and risks, and we agree with discharging home with close follow-up with the understanding that symptoms and presentations can change. We also discussed returning to the Emergency Department immediately if new or worsening symptoms occur. We have discussed the symptoms which are most concerning (e.g., changing or worsening pain, fever, numbness, weakness, cool or painful digits) that necessitate immediate return. - Vital Signs Vital signs: Temp Pulse Resp BP Pulse Ox 98.3 F 80 16 144/84 H 100 08/23/17 22:26 08/23/17 22:26 08/23/17 22:26 08/23/17 22:26 08/23/17 21:27 Discharge - Discharge Clinical Impression: Cellulitis Qualifiers: Site of cellulitis: extremity Site of cellulitis of extremity: lower extremity Laterality: right Qualified Code(s): L03.115 - Cellulitis of right lower limb Hypertension Qualifiers: Hypertension type: essential hypertension Qualified Code(s): I10 - Essential ( primary) hypertension Condition: Stable Disposition: HOME, SELF-CARE Instructions: Cellulitis ([facility]) Additional Instructions: Follow up with your physician tomorrow for further care or return to the ED IMMEDIATELY if symptoms worsen or new concerns occur. If you cannot afford to follow up with your primary care physician a list of low cost clinics have been provided at the end of your discharge papers as well. Prescriptions: Sulfamethoxazole/Trimethoprim [Bactrim Ds Tablet] 2 each PO BID #20 tablet Referrals: ERICKA WILSON MD [Primary Care Provider] - Follow up as needed
[2017-08-23 22:26] VITALS: BP 144/84
== END 2017-08-23 22:26 | disposition home or self-care (01) ==
LOC: ER 20:20
DX: L03.115 Cellulitis of right lower limb (principal); I10 Essential (primary) hypertension; M79.604 Pain in right leg; Z88.6 Allergy status to analgesic agent; Z90.710 Acquired absence of both cervix and uterus
CPT/HCPCS: 99283; J3490

== ENCOUNTER → 2018-01-01 | Outpatient (CLI) | payer MEDICAID ==
--- NOTE | 2018-01-01 14:52 | RADIOLOGY REPORT (SQ) ---
EXAM DESCRIPTION: CHEST PA/LATERAL COMPLETED DATE/TIME: 01/01/2018 11:50 am REASON FOR STUDY: DYSPNEA COMPARISON: Two-view chest 03/27/2017 EXAM PARAMETERS: NUMBER OF VIEWS: two views TECHNIQUE: Digital Frontal and Lateral radiographic views of the chest acquired. RADIATION DOSE: NA LIMITATIONS: Large patient FINDINGS: LUNGS AND PLEURA: No opacities, masses or pneumothorax. No pleural effusion. MEDIASTINUM AND HILAR STRUCTURES: No masses or contour abnormalities. HEART AND VASCULAR STRUCTURES: Moderate cardiomegaly BONES: No acute findings. HARDWARE: None in the chest. OTHER: No other significant finding. IMPRESSION: Moderate cardiomegaly. No acute infiltrates TECHNICAL DOCUMENTATION: JOB ID: [id number] [employer]- All Rights Reserved Reading location - IP/workstation name: [email or web address]
== END ==
LOC: OD 11:36
PROVIDERS: ATTEND Family Medicine
DX: R06.00 Dyspnea, unspecified (principal)
CPT/HCPCS: 71046

== ENCOUNTER → 2018-02-16 | Outpatient (CLI) | payer MEDICAID ==
[~2018-02-16] MED LIST: CEFAZOLIN 1 GM/D5W RTU 1 GM/50 ML RTUPB IV PRN; LACTATED RINGERS 1000 ML IV PRN; LIDOCAINE 0.5% INJ-PF (5 MG/ML) 50 ML SDV SUBCUT PRN
[2018-02-16 10:33] VITALS: BP 138/88
[2018-02-16 12:16] LABS: HEMATOCRIT 35.3 % (36.0-47.0); HEMOGLOBIN 11.9 g/dL (12.0-15.5); MEAN CORPUSCULAR HEMOGLOBIN 25.6 pg (27.0-33.4); MEAN CORPUSCULAR HGB CONC 33.7 g/dL (32.0-36.0); MEAN CORPUSCULAR VOLUME 76 fl (80-97); PLATELET COUNT 227 10^3/uL (150-450); RED BLOOD COUNT 4.66 10^6/uL (3.72-5.28); RED CELL DISTRIBUTION WIDTH 15.5 % (11.5-14.0); WHITE BLOOD COUNT 5.3 10^3/uL (4.0-10.5)
[2018-02-16 12:29] LABS: INTERNATIONAL RATION (INR) 0.95; PROTHROMBIN TIME 13.2 SEC (11.4-15.4)
[2018-02-16 12:30] LABS: PARTIAL THROMBOPLASTIN TIME 27.5 SEC (23.5-35.8)
--- NOTE | 2018-02-16 12:51 | EKG REPORT ---
SEVERITY:- NORMAL ECG - SINUS RHYTHM : Confirmed by: Dk Carrasquillo MD 16-Feb-2018 12:51:23
== END ==
LOC: OD 11:07 → EDSTATUS 03-09 08:00
PROVIDERS: ATTEND Plastic Surgery
DX: Z01.810 Encounter for preprocedural cardiovascular examination (principal); Z01.812 Encounter for preprocedural laboratory examination; Z01.818 Encounter for other preprocedural examination; Z01.89 Encounter for other specified special examinations
CPT/HCPCS: 36415; 84703; 85027; 85610; 85730; 93005; 93010

== ENCOUNTER → 2018-04-27 | Outpatient (CLI) | payer MEDICAID ==
--- NOTE | 2018-04-29 11:22 | RADIOLOGY REPORT (SQ) ---
EXAM DESCRIPTION: PHYSIO [employer] LTD COMPLETED DATE/TIME: 04/27/2018 3:51 pm REASON FOR STUDY: OMAR, CELLULITIS L03.119 CELLULITIS OF UNSPECIFIED PART OF LIMB COMPARISON: None. TECHNIQUE: Brachial blood pressure obtained. Pressures obtained of the peripheral vessels at the lev el of the ankle. Ankle brachial indices calculated. LIMITATIONS: None. FINDINGS: RIGHT OMAR: Normal, 1.08 LEFT OMAR: 0.98, at the lower limits of normal Bilateral ankle plethysmography shows normal systolic upstroke bilaterally IMPRESSION: NORMAL BILATERAL ABIS. COMMENT: [facility] NORMAL: Greater than 1.0 MINIMAL DISEASE: 0.9 to 1.0 CLAUDICATION: 0.5 to 0.9 SEVERE ARTERIAL DISEASE: Less than 0.5 [facility] NORMAL: Greater than 1.0 (1.2 If Heavy Calcifications) NORMAL TO MILD ISCHEMIA: 0.8 to 1.0 MODERATE ISCHEMIA: 0.4 to 0.8 SEVERE ISCHEMIA: Less than 0.4 TECHNICAL DOCUMENTATION: JOB ID: [id number] [employer]- All Rights Reserved Reading location - IP/workstation name: [email or web address]
== END ==
LOC: SP 13:30
PROVIDERS: ATTEND Physician Assistant
DX: L03.119 Cellulitis of unspecified part of limb (principal)
CPT/HCPCS: 93922

== ENCOUNTER → 2018-07-19 | Outpatient (CLI) | payer MEDICAID ==
[2018-07-19 10:04] LABS: ABSOLUTE EOSINOPHILS # (AUTO) 0.2 10^3/uL (0.0-0.6); ABSOLUTE LYMPHOCYTES (AUTO) 1.6 10^3/uL (0.5-4.7); ABSOLUTE MONOCYTES (AUTO) 0.4 10^3/uL (0.1-1.4); ABSOLUTE NEUT (AUTO) 5.5 10^3/uL (1.7-8.2); BASOPHILS % (AUTO) 0.6 % (0-2); EOSINOPHILS % (AUTO) 2.2 % (0-6); HEMATOCRIT 33.9 % (36.0-47.0); HEMOGLOBIN 11.6 g/dL (12.0-15.5); LYMPHOCYTES % (AUTO) 20.6 % (13-45); MEAN CORPUSCULAR HEMOGLOBIN 25.8 pg (27.0-33.4); MEAN CORPUSCULAR HGB CONC 34.3 g/dL (32.0-36.0); MEAN CORPUSCULAR VOLUME 75 fl (80-97); MONOCYTES % (AUTO) 5.3 % (3-13); PLATELET COUNT 243 10^3/uL (150-450); RED BLOOD COUNT 4.52 10^6/uL (3.72-5.28); RED CELL DISTRIBUTION WIDTH 15.1 % (11.5-14.0); SEGMENTED NEUTROPHILS % (AUTO) 71.3 % (42-78); TOTAL CELLS COUNTED % (AUTO) 100 %; WHITE BLOOD COUNT 7.7 10^3/uL (4.0-10.5)
[2018-07-19 10:22] LABS: ALANINE AMINOTRANSFERASE 23 U/L (9-52); ALBUMIN 4.4 g/dL (3.5-5.0); ALKALINE PHOSPHATASE 123 U/L (38-126); ANION GAP 9 (5-19); ASPARTATE AMINO TRANSFERASE 28 U/L (14-36); BILIRUBIN,DIRECT 0.3 mg/dL (0.0-0.4); BILIRUBIN,TOTAL 0.5 mg/dL (0.2-1.3); BLOOD UREA NITROGEN 12 mg/dL (7-20); CALCIUM 9.1 mg/dL (8.4-10.2); CARBON DIOXIDE 29 mmol/L (22-30); CHLORIDE 102 mmol/L (98-107); CHOLESTEROL 195.71 mg/dL (0-200); GLUCOSE 149 mg/dL (75-110); POTASSIUM 4.3 mmol/L (3.6-5.0); SODIUM 140.3 mmol/L (137-145); TRIGLYCERIDES 182 mg/dL (<150)
[2018-07-19 10:33] LABS: DIRECT LDL 129 mg/dL (<100)
[2018-07-19 10:36] LABS: VLDL CHOLESTEROL 36.4 mg/dL (10-31)
[2018-07-19 10:38] LABS: FREE T4 (FREE THYROXINE) 0.71 ng/dL (0.78-2.19)
[2018-07-19 10:52] LABS: THYROID STIMULATING HORMONE 2.18 uIU/mL (0.47-4.68)
== END ==
LOC: OD 09:11
PROVIDERS: ATTEND Psychiatry & Neurology Psychiatry
DX: F33.1 Major depressive disorder, recurrent, moderate (principal); Z79.899 Other long term (current) drug therapy
CPT/HCPCS: 36415; 80048; 80061; 80076; 83036; 84439; 84443; 85025

== ENCOUNTER → 2018-07-21 | Outpatient (CLI) | payer MEDICAID ==
--- NOTE | 2018-07-21 17:17 | WOMENS IMAGING REPORT ---
EXAM DESCRIPTION: 3D SCREENING MAMMO BILAT COMPLETED DATE/TIME: 07/21/2018 11:44 am REASON FOR STUDY: ROUTINE 3D BILATERAL SCREENING,Z12.31 Z12.31 ENCNTR SCREEN MAMMOGRAM FOR MALIGNAN T NEOPLASM OF TETE COMPARISON: Right breast mammograms 08/20/2017 TECHNIQUE: Standard craniocaudal and mediolateral oblique views of each breast recorded using digita l acquisition and breast tomosynthesis. LIMITATIONS: None. FINDINGS: Findings present which are benign by mammographic criteria. No suspicious masses, calcifi cations or architectural distortion. Pertinent benign findings: Previously biopsied right retroareolar mass seen on 08/20/2017 has been rese cted. There is a single surgical clip in the right breast retroareolar region. Read with the assistance of CAD. .[facility] - R2 Cenova Version 1.3 .[facility] - R2 Cenova Version 2.1 .[facility] - R2 Cenova Version 2.4 .[facility] - R2 Cenova Version 2.4 .[facility] - R2 Aspnet Developer Version 9.2 Benign mammographic findings may include one or more of the following: Smooth masses, popcorn/rim/co arse calcifications, asymmetries, post-procedure changes, and lesions with long-standing stability. IMPRESSION: BENIGN MAMMOGRAPHIC FINDINGS. BIRADS 2 BREAST DENSITY: b. There are scattered areas of fibroglandular density. BIRAD: 2 BENIGN FINDING(S) RECOMMENDATION: RECOMMENDATION: ROUTINE SCREENING COMMENT: The patient has been notified of the results by letter per SA requirements. Additional no tification policies are in place for contacting patient with suspicious or incomplete findings. Quality ID #225: The [employer] recommends an annual screening mammogram for women aged 40 years or over. This facility utilizes a reminder system to ensure that all patients receive reminder letters, and/or direct phone calls for appointments. This includes reminders for routine scr eening mammograms, diagnostic mammograms, or other Breast Imaging Interventions when appropriate. Th is patient will be placed in the appropriate reminder system. The [employer] (ACR) has developed recommendations for screening MRI of the breast s in certain patient populations, to be used in conjunction with mammography. Breast MRI surveillanc e may be appropriate for women with more than 20% lifetime risk of developing breast cancer as deter mined by genetic testing, significant family history of the disease, or history of mantle radiation f or Hodgkins Disease. ACR Practice Guidelines 2008. DBT Technology DBT is a type of tomographic mammography. With conventional mammography, overlapping breast tissue ma y make lesions difficult to detect, even with good compression. DBT uses an x-ray tube that rotates a round the breast, taking images at different angles. These images are then combined to create thin sl ices of the breast that the radiologist can view as a 3D reconstruction. The [employer] unit can perform full-field digital mammograms (2D imaging); or DBT (3D imaging); or both, in a combination mode that quickly performs both the mammogram and the tomosynthesis scan while the breast is still compressed. PQRS 6045F: Fluoroscopic imaging is not utilized for breast tomosynthesis. TECHNICAL DOCUMENTATION: FINDING NUMBER: (1) ASSESSMENT: (1) JOB ID: [id number] [employer]- All Rights Reserved Reading location - IP/workstation name: [email or web address]
== END ==
LOC: WI 11:26
PROVIDERS: ATTEND Surgery
DX: Z12.31 Encounter for screening mammogram for malignant neoplasm of breast (principal)
CPT/HCPCS: 77063; 77067

== ENCOUNTER → 2019-03-07 | Outpatient (CLI) | payer MEDICAID ==
--- NOTE | 2019-03-07 09:07 | RADIOLOGY REPORT (SQ) ---
EXAM DESCRIPTION: T SPINE AP/LAT COMPLETED DATE/TIME: 03/07/2019 8:19 am REASON FOR STUDY: PAIN IN THORACIC SPINE M54.6 PAIN IN THORACIC SPINE COMPARISON: Lateral view of the chest from 01/01/2018 NUMBER OF VIEWS: Two views. TECHNIQUE: AP and lateral radiographic images acquired of the thoracic spine. LIMITATIONS: None. FINDINGS: MINERALIZATION: Normal. ALIGNMENT: No scoliotic curvature or subluxation. There is no destruction of the pedicular alignment . VERTEBRAE: The thoracic vertebral body heights are preserved. There is no fracture. DISCS: Anterolateral osteophytes in the midthoracic spine. HARDWARE: None in the spine. MEDIASTINUM AND SOFT TISSUES: The cardiac silhouette and aortic contour are within normal limits. VISUALIZED LUNG RODRIGUEZ: Clear. OTHER: No other finding. IMPRESSION: No acute fracture or malalignment of the thoracic spine. TECHNICAL DOCUMENTATION: JOB ID: [id number] [employer]- All Rights Reserved Reading location - IP/workstation name: [email or web address]
== END ==
LOC: OD 08:00
PROVIDERS: ATTEND Nurse Practitioner Primary Care
DX: M54.6 Pain in thoracic spine (principal)
CPT/HCPCS: 72070

== ENCOUNTER → 2019-04-08 | Outpatient (CLI) | payer MEDICAID ==
--- NOTE | 2019-04-08 10:20 | RADIOLOGY REPORT (SQ) ---
EXAM DESCRIPTION: LUMBAR SPINE 2 VIEWS COMPLETED DATE/TIME: 04/08/2019 9:18 am REASON FOR STUDY: LBP M54.5 LOW BACK PAIN COMPARISON: None. NUMBER OF VIEWS: Two views. TECHNIQUE: AP and lateral radiographic images acquired of the lumbar spine. LIMITATIONS: None. FINDINGS: MINERALIZATION: Normal. SEGMENTATION: There are 5 lumbar-type vertebral bodies. There is no transitional anatomy at the lumb osacral junction. ALIGNMENT: Normal. VERTEBRAE: The lumbar vertebral body heights are preserved. There is no fracture. DISCS: The intervertebral disc space heights are preserved. There is no endplate irregularity or siz able osteophytes. POSTERIOR ELEMENTS: The pedicles and facets are intact. There is no pars interarticularis defect. HARDWARE: None in the spine. PARASPINAL SOFT TISSUES: Normal. PELVIS: Intact. OTHER: Anterolateral osteophytes at T8-T9. IMPRESSION: No acute fracture or malalignment of the lumbar spine. TECHNICAL DOCUMENTATION: JOB ID: [id number] [employer]- All Rights Reserved Reading location - IP/workstation name: [email or web address]
== END ==
LOC: OD 08:49
PROVIDERS: ATTEND Nurse Practitioner Primary Care
DX: M54.5 Low back pain (principal)
CPT/HCPCS: 72100

== ENCOUNTER 2019-11-18 01:20 | Emergency (ER) | payer MEDICAID ==
[2019-11-18] MEDS ORDERED: ONDANSETRON 4 MG TAB.RAPDIS PO ONE (02:09)
[2019-11-18] MEDS ORDERED: METOCLOPRAMIDE HCL INJ/PF 10 MG/2 ML SDV IV ONE (04:27)
[2019-11-18] MEDS ORDERED: DIPHENHYDRAMINE HCL 50 MG/ML VIAL IV ONE (04:27)
[2019-11-18] MEDS ORDERED: NORMAL SALINE 1000 ML 1,000 ML IV ONE (04:28)
[2019-11-18] MEDS ORDERED: KETOROLAC TROMETHAMINE INJ/PF 30 MG/1 ML SDV IV ONE (04:28)
--- NOTE | 2019-11-18 04:29 | ER Document Report ---
ED Headache - General Chief Complaint: Headache Stated Complaint: MIGRAINE Time Seen by Provider: 11/18/19 04:22 Primary Care Provider: RAIMUNDO HIGGINBOTHAM FNP-C [Primary Care Provider] - Follow up as needed Notes: Patient is a 49-year-old female that comes to the emergency department for chief complaint of a headache. She states the headache started when she woke up in the morning, she states this is been slowly getting worse, she reports pain behind her right eye, throbbing pain, nausea, and she vomited once. She has some light sensitivity. She denies neck pain, fever, head injury, focal numbness or weakness, or any other complaints. Patient states that she gets migraine headaches like this frequently, almost twice a week now but this 1 did not resolve with her home medications she is prescribed including Maxalt and Excedrin. She denies that this is the worst headache she has had. She has had multiple imaging studies of her head and follows with neurology. TRAVEL OUTSIDE OF THE [place] IN LAST 30 DAYS: No - Related Data Allergies/Adverse Reactions: codeine [Codeine] Allergy (Intermediate, Verified 03/27/17 17:42) itching, dysphagia oxycodone Allergy (Verified 03/27/17 17:42) urticaria, hives prochlorperazine edisylate [From Compazine] Adverse Reaction (Intermediate, Verified 03/27/17 17:42) tardive dyskinesia Home Medications: verapamil, metoprolol, muscle relaxer, resulti, metformin, effexor,. excedrin, imitrex, vit d, cq10, Past Medical History - General Information source: Patient - Social History Smoking Status: Never Smoker Frequency of alcohol use: None Drug Abuse: None Lives with: Family Family History: Hypertension, Other - Dementia Patient has homicidal ideation: No - Past Medical History Cardiac Medical History: Reports: Hx Hypertension, Hx Heart Murmur - denies SBE prophylaxis Denies: Hx Atrial Fibrillation, Hx Congestive Heart Failure, Hx Coronary Artery Disease, Hx Heart Attack, Hx Hypercholesterolemia Pulmonary Medical History: Reports: Hx Asthma, Hx Bronchitis Denies: Hx COPD, Hx Pneumonia, Hx Tuberculosis Neurological Medical History: Reports: Hx Migraine. Denies: Hx Cerebrovascular Accident, Hx Seizures, Hx Parkinson's Disease Renal/ Medical History: Denies: Hx End Stage Renal Disease, Hx Kidney Stones, Hx Peritoneal Dialysis Malignancy Medical History: Denies: Hx Leukemia GI Medical History: Reports: Hx Gastroesophageal Reflux Disease - meds x 6 months. Denies: Hx Hiatal Hernia, Hx Pancreatitis, Hx Ulcer Musculoskeletal Medical History: Reports Hx Arthritis Psychiatric Medical History: Reports: Hx Bipolar Disorder, Hx Depression - meds x 21 years Denies: Hx Schizophrenia Traumatic Medical History: Reports: Hx Fractures - LT wrist, cast application only, 11 years ago Infectious Medical History: Denies: Hx HIV Past Surgical History: Reports: Hx Hysterectomy, Hx Orthopedic Surgery - Left total knee arthroplasty 01/22/2015. Right knee arthroplasty November 2015. Denies: Hx Appendectomy, Hx Bowel Surgery, Hx Section, Hx Cholecystectomy, Hx Mastectomy, Hx Tonsillectomy, Hx Tubal Ligation - Immunizations Hx Diphtheria, Pertussis, Tetanus Vaccination: Yes Review of Systems - Review of Systems Constitutional: No symptoms reported EENT: No symptoms reported Cardiovascular: No symptoms reported Respiratory: No symptoms reported Gastrointestinal: See HPI Genitourinary: No symptoms reported Female Genitourinary: No symptoms reported Musculoskeletal: No symptoms reported Skin: No symptoms reported Hematologic/Lymphatic: No symptoms reported Neurological/Psychological: See HPI Physical Exam - Vital signs Vitals: Temp Pulse Resp BP Pulse Ox 98.5 F 74 14 152/48 H 96 11/18/19 01:31 11/18/19 01:31 11/18/19 01:31 11/18/19 01:11/18/19 01:31 - Notes Notes: GENERAL: Alert, interacts well. No acute distress. HEAD: Normocephalic, atraumatic. EYES: Pupils equal, round, and reactive to light. Extraocular movements intact. ENT: Oral mucosa moist, tongue midline. Oropharynx unremarkable. Airway patent. NECK: Full range of motion. Supple. Trachea midline. No lymphadenopathy. No nuchal rigidity LUNGS: Clear to auscultation bilaterally, no wheezes, rales, or rhonchi. No respiratory distress. Non-tender chest wall. HEART: Regular rate and rhythm. No murmur ABDOMEN: Soft, non-tender. Non-distended. EXTREMITIES: Moves all 4 extremities spontaneously. No edema, normal radial and dorsalis pedis pulses bilaterally. No cyanosis. BACK: no cervical, thoracic, lumbar midline tenderness. No saddle anesthesia, normal distal neurovascular exam. Moves all extremities in full range of motion. NEUROLOGICAL: Alert and oriented x3. Normal speech. Cranial nerves II through XII grossly intact. Strength 5/5 in all extremities. PSYCH: Normal affect, normal mood. SKIN: Warm, dry, normal turgor. No rashes or lesions noted. Course - Re-evaluation Re-evalutation: Patient is complaining of a headache but does not appear to be in distress. Her neurological exam is unremarkable, her physical exam is unremarkable. Patient reports that her headache is very similar to her regular headaches and this is not worse than usual except that she could not get it to resolve with her home medications. No nuchal rigidity, fever. Patient treated with medications, IV fluids, on reevaluation patient sleeping, easily aroused, states her headache is completely gone. She states she is ready to go home. Discussed continued care with her primary provider, and return precautions in detail. Patient states understanding and agreement. Stable, well-appearing, asymptomatic at time of discharge. - Vital Signs Vital signs: Temp Pulse Resp BP Pulse Ox 97.8 F 73 18 133/75 H 97 11/18/19 06:10 11/18/19 06:10 11/18/19 06:10 11/18/19 06:10 11/18/19 06:10 Discharge - Discharge Clinical Impression: Headache Qualifiers: Headache type: unspecified Headache chronicity pattern: acute headache Intractability: not intractable Qualified Code(s): R51 - Headache Condition: Stable Disposition: HOME, SELF-CARE Additional Instructions: Your evaluation, symptoms, and resolution with treatment are very suggestive of a migraine. Continue your current home medications for migraines. Follow-up with your provider for additional evaluation and management of migraines. Return if you worsen including returned or severe headache, vomiting, fever, or any other concerning or worsening symptoms. Forms: Return to Work Referrals: RAIMUNDO HIGGINBOTHAM FNP-C [Primary Care Provider] - Follow up as needed
[2019-11-18 06:12] VITALS: BP 133/75
== END 2019-11-18 06:12 | disposition home or self-care (01) ==
LOC: ER 01:20
DX: R51 Headache (principal); I10 Essential (primary) hypertension; Z88.6 Allergy status to analgesic agent; Z79.4 Long term (current) use of insulin; Z90.710 Acquired absence of both cervix and uterus
CPT/HCPCS: 99283; 96361; 96374; 96375; J1200; S0119; J1885; J2765; J7030

== ENCOUNTER 2019-11-19 06:12 | Emergency (ER) | payer MEDICAID ==
[2019-11-19] MEDS ORDERED: KETOROLAC TROMETHAMINE INJ/PF 30 MG/1 ML SDV IV ONE (08:36)
[2019-11-19] MEDS ORDERED: METOCLOPRAMIDE HCL INJ/PF 10 MG/2 ML SDV IV ONE (08:36)
[2019-11-19] MEDS ORDERED: DIPHENHYDRAMINE HCL 50 MG/ML VIAL IV ONE (08:36)
[2019-11-19] MEDS ORDERED: NORMAL SALINE 1000 ML 1,000 ML IV ONE (08:36)
--- NOTE | 2019-11-19 08:38 | ER Document Report ---
ED Headache - General Chief Complaint: Headache Stated Complaint: MIGRAINE Time Seen by Provider: 11/19/19 08:16 Primary Care Provider: RAIMUNDO HIGGINBOTHAM FNP-C [Primary Care Provider] - Follow up in 3-5 days Information source: Patient Notes: Patient presents complaining of migraine headache that started yesterday. Patient reports photophobia and phonophobia. Patient reports nausea without emesis. Patient denies any fever. Patient states she typically gets about 2 migraines each week and that this headache is typical of her usual migraine. Patient states that she did run out of her usual Maxalt and Imitrex that she takes at home. TRAVEL OUTSIDE OF THE [place] IN LAST 30 DAYS: No - HPI Patient complains to provider of: "Migraine" Timing: Still present Quality of pain: Sharp Pain Level: 5 Associated symptoms: Nausea/vomiting, Photophobia. denies: Chills, Fainting, Fever, Neck pain Exacerbated by: Light, Noise Similar symptoms previously: Yes Recently seen / treated by doctor: Yes - Related Data Allergies/Adverse Reactions: codeine [Codeine] Allergy (Intermediate, Verified 03/27/17 17:42) itching, dysphagia oxycodone Allergy (Verified 03/27/17 17:42) urticaria, hives prochlorperazine edisylate [From Compazine] Adverse Reaction (Intermediate, Verified 03/27/17 17:42) tardive dyskinesia Home Medications: Venlafaxine, Cephalexin, Rexulti, Clonazepam, Hydroxyzine, Metroprolol, Verapamil, Methocarbamol, Meloxicam, Advair, HCTZ, Metformin, Bupropion, Trazadone, Dexilant, Ralston 3, Vit D3, Potassium, Folic Acid Past Medical History - General Information source: Patient - Social History Smoking Status: Never Smoker Frequency of alcohol use: None Drug Abuse: None Occupation: Foodservice Family History: Hypertension, Other - Dementia Patient has homicidal ideation: No - Past Medical History Cardiac Medical History: Reports: Hx Hypertension, Hx Heart Murmur - denies SBE prophylaxis Pulmonary Medical History: Reports: Hx Asthma, Hx Bronchitis Denies: Hx COPD, Hx Pneumonia, Hx Tuberculosis Neurological Medical History: Reports: Hx Migraine. Denies: Hx Cerebrovascular Accident, Hx Seizures, Hx Parkinson's Disease Endocrine Medical History: Reports: Hx Diabetes Mellitus Type 2 Renal/ Medical History: Denies: Hx End Stage Renal Disease, Hx Kidney Stones, Hx Peritoneal Dialysis Malignancy Medical History: Denies: Hx Leukemia GI Medical History: Reports: Hx Gastroesophageal Reflux Disease - meds x 6 months. Denies: Hx Hiatal Hernia, Hx Pancreatitis, Hx Ulcer Musculoskeletal Medical History: Reports Hx Arthritis Psychiatric Medical History: Reports: Hx Bipolar Disorder, Hx Depression - meds x 21 years Denies: Hx Schizophrenia Traumatic Medical History: Reports: Hx Fractures - LT wrist, cast application only, 11 years ago Infectious Medical History: Denies: Hx HIV Past Surgical History: Reports: Hx Hysterectomy, Hx Orthopedic Surgery - Left total knee arthroplasty 01/22/2015. Right knee arthroplasty November 2015 - Immunizations Hx Diphtheria, Pertussis, Tetanus Vaccination: Yes Review of Systems - Review of Systems Constitutional: No symptoms reported. denies: Fever, Recent illness EENT: No symptoms reported Cardiovascular: No symptoms reported. denies: Chest pain Respiratory: No symptoms reported. denies: Cough Gastrointestinal: Nausea. denies: Vomiting Genitourinary: No symptoms reported Female Genitourinary: No symptoms reported Musculoskeletal: No symptoms reported. denies: Back pain, Neck pain Skin: No symptoms reported Hematologic/Lymphatic: No symptoms reported Neurological/Psychological: Headaches Physical Exam - Vital signs Vitals: Temp Pulse Resp BP Pulse Ox 97.5 F 86 16 150/90 H 97 11/19/19 06:18 11/19/19 06:18 11/19/19 06:18 11/19/19 06:18 11/19/19 06:18 - General General appearance: Appears well, Alert In distress: None - HEENT Head: Normocephalic, Atraumatic Eyes: Normal Conjunctiva: Normal Eyelashes: Normal Pupils: PERRL Nasal: Normal Pharynx: Normal Neck: Normal, Supple. No: Lymphadenopathy, Meningismus - Respiratory Respiratory status: No respiratory distress Chest status: Nontender Breath sounds: Normal. No: Rales, Rhonchi, Stridor, Wheezing Chest palpation: Normal - Cardiovascular Rhythm: Regular Heart sounds: S1 appreciated, S2 appreciated - Back Back: Normal, Nontender. No: CVA tenderness - Extremities General upper extremity: Normal inspection, Normal strength General lower extremity: Normal inspection, Normal strength - Neurological Neuro grossly intact: Yes Cognition: Normal Daggett Coma Scale Eye Opening: Spontaneous Daggett Coma Scale Verbal: Oriented Daggett Coma Scale Motor: Obeys Commands Daggett Coma Scale Total: 15 Speech: Normal. No: Dysarthria Cranial nerves: Normal. No: Tongue deviation - Psychological Associated symptoms: Normal affect, Normal mood - Skin Skin Temperature: Warm Skin Moisture: Dry Skin Color: Normal Course - Re-evaluation Re-evalutation: 11/19/19 10:18 Patient resting with eyes closed, arouses easily to voice. Patient denies resolution of her headache at this time and is requesting additional medication. Patient states she has had hydrocodone without adverse reaction in the past. 11/19/19 11:23 Patient reports headache pain has resolved at this time. 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 The patient is neurologically intact. Given the extremely low risk of these diagnoses further testing and evaluation for these possibilities does not appear to be indicated at this time. The patient has been instructed to return if the symptoms worsen or change in any way. - Vital Signs Vital signs: Temp Pulse Resp BP Pulse Ox 98.5 F 85 16 154/88 H 98 11/19/19 11:08 11/19/19 11:08 11/19/19 11:08 11/19/19 11:08 11/19/19 11:08 - Laboratory Result Diagrams: 11/19/19 09:05 11/19/19 09:05 Laboratory results interpreted by me: 11/19/19 11/19/19 09:05 09:05 Hgb 11.7 L Hct 34.2 L MCV 76 L MCH 26.1 L RDW 14.6 H Sodium 136.8 L Glucose 180 H Labs- All tests 24 hr 11/19/19 11/19/19 11/19/19 08:00 08:00 09:05 WBC Cancelled 6.7 RBC Cancelled 4.48 Hgb Cancelled 11.7 L Hct Cancelled 34.2 L MCV Cancelled 76 L MCH Cancelled 26.1 L MCHC Cancelled 34.2 RDW Cancelled 14.6 H Plt Count Cancelled 215 Lymph % (Auto) Cancelled 20.7 [place] % (Auto) Cancelled 3.6 Eos % (Auto) Cancelled 1.9 Baso % (Auto) Cancelled 0.6 Absolute Neuts (auto) Cancelled 4.9 Absolute Lymphs (auto) Cancelled 1.4 Absolute Monos (auto) Cancelled 0.2 Absolute Eos (auto) Cancelled 0.1 Absolute Basos (auto) Cancelled 0.0 Seg Neutrophils % Cancelled 73.2 Platelet Estimate Cancelled Sodium Cancelled Potassium Cancelled Chloride Cancelled Carbon Dioxide Cancelled Anion Gap Cancelled BUN Cancelled Creatinine Cancelled Est GFR ( Amer) Cancelled Est GFR (Non-Af Amer) Cancelled Est GFR (MDRD) Non-Af Cancelled Glucose Cancelled Calcium Cancelled Total Bilirubin Cancelled Direct Bilirubin Cancelled Neonat Total Bilirubin Cancelled Neonat Direct Bilirubin Cancelled Neonat Indirect Bili Cancelled AST Cancelled ALT Cancelled Alkaline Phosphatase Cancelled Total Protein Cancelled Albumin Cancelled EGFR Cancelled Slides for Path Review Cancelled 11/19/19 09:05 WBC RBC Hgb Hct MCV MCH MCHC RDW Plt Count Lymph % (Auto) [place] % (Auto) Eos % (Auto) Baso % (Auto) Absolute Neuts (auto) Absolute Lymphs (auto) Absolute Monos (auto) Absolute Eos (auto) Absolute Basos (auto) Seg Neutrophils % Platelet Estimate Sodium 136.8 L Potassium 4.5 Chloride 104 Carbon Dioxide 27 Anion Gap 6 BUN 13 Creatinine 0.54 Est GFR ( Amer) > 60 Est GFR (Non-Af Amer) Est GFR (MDRD) Non-Af > 60 Glucose 180 H Calcium 9.0 Total Bilirubin 0.4 Direct Bilirubin 0.0 Neonat Total Bilirubin Not Reportable Neonat Direct Bilirubin Not Reportable Neonat Indirect Bili Not Reportable AST 22 ALT 19 Alkaline Phosphatase 109 Total Protein 6.5 Albumin 3.9 EGFR Slides for Path Review Discharge - Discharge Clinical Impression: Headache Qualifiers: Headache type: unspecified Headache chronicity pattern: episodic headache Intractability: not intractable Qualified Code(s): R51 - Headache Condition: Stable Disposition: HOME, SELF-CARE Instructions: Use of Diphenhydramine, Headache ([facility]), Toradol Injection ([facility]) Additional Instructions: Return immediately for any new or worsening symptoms Followup with your primary care provider, call tomorrow to make a followup appointment Forms: Return to Work Referrals: RAIMUNDO HIGGINBOTHAM, LAYTONC [Primary Care Provider] - Follow up in 3-5 days
[2019-11-19 09:23] LABS: ABSOLUTE EOSINOPHILS # (AUTO) 0.1 10^3/uL (0.0-0.6); ABSOLUTE LYMPHOCYTES (AUTO) 1.4 10^3/uL (0.5-4.7); ABSOLUTE MONOCYTES (AUTO) 0.2 10^3/uL (0.1-1.4); ABSOLUTE NEUT (AUTO) 4.9 10^3/uL (1.7-8.2); BASOPHILS % (AUTO) 0.6 % (0-2); EOSINOPHILS % (AUTO) 1.9 % (0-6); HEMATOCRIT 34.2 % (36.0-47.0); HEMOGLOBIN 11.7 g/dL (12.0-15.5); LYMPHOCYTES % (AUTO) 20.7 % (13-45); MEAN CORPUSCULAR HEMOGLOBIN 26.1 pg (27.0-33.4); MEAN CORPUSCULAR HGB CONC 34.2 g/dL (32.0-36.0); MEAN CORPUSCULAR VOLUME 76 fl (80-97); MONOCYTES % (AUTO) 3.6 % (3-13); PLATELET COUNT 215 10^3/uL (150-450); RED BLOOD COUNT 4.48 10^6/uL (3.72-5.28); RED CELL DISTRIBUTION WIDTH 14.6 % (11.5-14.0); SEGMENTED NEUTROPHILS % (AUTO) 73.2 % (42-78); TOTAL CELLS COUNTED % (AUTO) 100 %; WHITE BLOOD COUNT 6.7 10^3/uL (4.0-10.5)
[2019-11-19 09:46] LABS: ALBUMIN 3.9 g/dL (3.5-5.0); ALKALINE PHOSPHATASE 109 U/L (38-126); ANION GAP 6 (5-19); ASPARTATE AMINO TRANSFERASE 22 U/L (14-36); BILIRUBIN,TOTAL 0.4 mg/dL (0.2-1.3); BLOOD UREA NITROGEN 13 mg/dL (7-20); CARBON DIOXIDE 27 mmol/L (22-30); CHLORIDE 104 mmol/L (98-107); GLUCOSE 180 mg/dL (75-110); POTASSIUM 4.5 mmol/L (3.6-5.0); TOTAL PROTEIN 6.5 g/dL (6.3-8.2)
[2019-11-19] MEDS ORDERED: DEXAMETHASONE SOD PHOS INJ 10 MG/1 ML VIAL IV ONE (10:18)
[2019-11-19] MEDS ORDERED: HYDROCODONE/ACETAMINOPHEN 5-325 MG TABLET PO ONE (10:18)
[2019-11-19 11:09] VITALS: BP 154/88
== END 2019-11-19 11:31 | disposition home or self-care (01) ==
LOC: ER 06:12
DX: R51 Headache (principal); H53.149 Visual discomfort, unspecified; R11.2 Nausea with vomiting, unspecified; Z79.899 Other long term (current) drug therapy; Z88.8 Allergy status to other drugs, medicaments and biological substances
CPT/HCPCS: 99283; 96361; 96374; 96375; 36415; 85025; 80053; J1200; J1885; J2765; J7030; J1100

== ENCOUNTER → 2020-02-02 | Outpatient (CLI) | payer BC, MEDICAID ==
--- NOTE | 2020-02-02 12:36 | WOMENS IMAGING REPORT ---
EXAM DESCRIPTION: BILAT SCREENING MAMMO W/CAD IMAGES COMPLETED DATE/TIME: 02/02/2020 9:55 am REASON FOR STUDY: Z12.31 ENCOUNTER FOR SCREENING MAMMOGRAM FOR MALIGNANT NEOPLASM OF BREAST Z12.31 ENCNTR SCREEN MAMMOGRAM FOR MALIGNANT NEOPLASM OF TETE COMPARISON: 07/21/2018, 08/20/2017, EXAM PARAMETERS: Standard craniocaudal and mediolateral oblique views of each breast recorded using digital acquisition. Read with the assistance of CAD. .[facility] - R2 [employer] Engineer Version 9.2 LIMITATIONS: None. FINDINGS: No suspicious masses, suspicious calcifications or architectural distortion. No areas of c oncern. IMPRESSION: NEGATIVE MAMMOGRAM. BIRADS 1 BREAST DENSITY: b. There are scattered areas of fibroglandular density. BIRAD: ASSESSMENT: 1 NEGATIVE RECOMMENDATION: ROUTINE SCREENING COMMENT: The patient has been notified of the results by letter per MQSA requirements. Additional no tification policies are in place for contacting patient with suspicious or incomplete findings. Quality ID #225: The [place] [employer] recommends an annual screening mammogram for women aged 40 years or over. This facility utilizes a reminder system to ensure that all patients receive reminder letters, and/or direct phone calls for appointments. This includes reminders for routine scr eening mammograms, diagnostic mammograms, or other Breast Imaging Interventions when appropriate. Th is patient will be placed in the appropriate reminder system. TECHNICAL DOCUMENTATION: FINDING NUMBER: (1) ASSESSMENT: (1) JOB ID: [id number] [employer]- All Rights Reserved Reading location - IP/workstation name: [email or web address]
== END ==
LOC: WI 09:28
PROVIDERS: ATTEND Nurse Practitioner Primary Care
DX: Z12.31 Encounter for screening mammogram for malignant neoplasm of breast (principal)
CPT/HCPCS: 77067